=== PATIENT | female | born 1940 | race Caucasian/White ===

== ENCOUNTER 2018-11-03 09:13 | Emergency (ER) | payer OTHER ==
[~2018-11-03] VITALS: Ht 149.9 cm; Wt 54.4 kg
[2018-11-03 09:13] VITALS: BP 142/61
--- NOTE | 2018-11-03 09:13 | NUR ---
78 Y F BIBA FROM [facility] C/0 FALL. PER [facility], PT FELL AND HIT THE R SIDE OF HER HEAD AND BACK AT 0715 THIS MORNING. PT DID NOT LOSE CONSCIOUSNESS. PT REPORTS SHE FELT DIZZY BEFORE SHE FELL. GOOSEBUMP ON R SIDE OF HEAD, 9/10 PAIN. BACK PAIN 10/10. PT HAS A L SIDED FISTULA IN UPPER ARM. VSS. AA0X4. BLOOD SUGAR IS 131. BED IS DOWN, LOCKED, BED RAIL X 2. ERMD NOTIFIED OF PATIENT STATUS. PMH- HTN, DIALYSIS, GERD SEE MED LIST
--- NOTE | 2018-11-03 09:37 | NUR ---
DR MORRIS AT BEDSIDE
[2018-11-03] MEDS ORDERED: diphenhydrAMINE 50 MG/ML VIAL IM ONE (09:40)
[2018-11-03] MEDS ORDERED: DEXAMETHASONE 10 MG/ML VIAL IM ONE (09:40)
[2018-11-03] MEDS ORDERED: MORPHINE SULFATE 4 MG/ML SYR IM ONE (09:40)
--- NOTE | 2018-11-03 10:05 | NUR ---
IM MEDS GIVEN-NADR AT THIS TIME. VSS, PT STABLE.
--- NOTE | 2018-11-03 10:06 | NUR ---
PT SENT TO CT WITH TECH VIA BED AAOX4
--- NOTE | 2018-11-03 10:45 | NUR ---
PT RETURN FROM CT AT THIS TIME, A/OX3. PT ON STRETCHER IN SUPINE POSITION, EYES OPEN, RESPIRATIONS EVEN/UNLABORED, DENIES CP AT THIS TIME. BED IN LOW POSITION, SIDE RAILS UP, FULL MONITOR ON, WILL CONTINUE TO MONITOR CLOSELY.
--- NOTE | 2018-11-03 12:00 | NUR ---
PT FLAT ON STRETCHER, A/OX3, RESPIS E/U NO REQUESTS AT THIS TIME.
[2018-11-03 12:53] LABS: BASOPHILS % (AUTO) 0.2 % (0.0-2.0); EOSINOPHILS # (AUTO) 0.1 K/uL (0-0.4); HEMATOCRIT 37.9 % (36-48); HEMOGLOBIN 12.5 g/dL (12.0-16.0); LYMPHOCYTES # (AUTO) 0.8 K/uL (2.5-16.5); LYMPHOCYTES % (AUTO) 5.4 % (20.5-51.1); MEAN CORPUSCULAR HEMOGLOBIN 32 pg (27-31); MEAN CORPUSCULAR HGB CONC 33 g/dL (33-37); MEAN CORPUSCULAR VOLUME 97.1 fL (80-94); MONOCYTES # (AUTO) 0.8 K/uL (0.8-1.0); MONOCYTES % (AUTO) 5.6 % (1.7-9.3); NEUTROPHILS # (AUTO) 13.2 K/uL (1.8-7.7); NEUTROPHILS % (AUTO) 87.8 % (42.2-75.2); PLATELET COUNT (AUTO) 69 K/uL (140-450); RED CELL DISTRIBUTION WIDTH 20.4 % (11.6-13.7)
--- NOTE | 2018-11-03 13:00 | NUR ---
PT FLAT ON STRETCHER, A/OX3, RESPIS E/U NO REQUESTS AT THIS TIME.
[2018-11-03 13:08] LABS: PROTHROMBIN TIME 14.4 secs (10.8-13.4)
[2018-11-03 13:37] LABS: ANION GAP 10.2 (8-16); CARBON DIOXIDE 30.5 mmol/L (21-32); CHLORIDE 100 mmol/L (98-107); GLUCOSE 113 mg/dL (74-106); POTASSIUM 3.7 mmol/L (3.5-5.1); SODIUM SERUM 137 mmol/L (136-145); UREA NITROGEN, BLOOD 21 mg/dL (7-18)
[2018-11-03 13:38] LABS: CREATININE 4.2 mg/dL (0.6-1.3)
[2018-11-03 13:44] LABS: ALBUMIN 3.2 g/dL (3.4-5.0); AMYLASE 39 U/L (25-115); ASPARTATE AMINOTRANSFERASE 53 U/L (15-37); LIPASE 91 U/L (73-393); TOTAL BILIRUBIN 1.1 mg/dL (0.0-1.0)
--- NOTE | 2018-11-03 14:00 | NUR ---
PT FLAT ON STRETCHER, A/OX3, RESPIS E/U NO REQUESTS AT THIS TIME.
[2018-11-03 14:17] VITALS: BP 114/69
--- NOTE | 2018-11-03 14:17 | NUR ---
Patient to be transferred to [facility]. Is being transferred due to HIGHER LEVEL OF CARE. Receiving facility has accepting physician and available space. ER physician has signed transfer form. Patient or responsible democrat has agreed to transfer and signed form. Patient belongings inventoried and will be sent with patient. Copy of nursing notes, lab reports, EKG, Physicians Orders and X-rays to be sent with patient. Report called to JOSHUA REGALADO at receiving facility. [facility] ambulance service has been called for transfer. PT LEAVING NOW, PLACED ON BACKBOARD PER PHYSICIAN ORDERS.
--- NOTE | 2018-11-03 14:17 | NUR ---
GAVE REPORT TO ARROWHEAD
== END 2018-11-03 14:17 | disposition short-term general hospital (02) ==
LOC: MED 09:13
DX: S32.041A Stable burst fracture of fourth lumbar vertebra, initial encounter for closed fracture (principal); R51 Headache; K21.9 Gastro-esophageal reflux disease without esophagitis; I12.0 Hypertensive chronic kidney disease with stage 5 chronic kidney disease or end stage renal disease; N18.6 End stage renal disease; Z99.2 Dependence on renal dialysis; W18.39XA Other fall on same level, initial encounter; Y93.89 Activity, other specified; Y92.89 Other specified places as the place of occurrence of the external cause; Y99.8 Other external cause status
CPT/HCPCS: 36415; 70450; 71250; 72125; 74176; 80053; 82150; 83690; 84484; 85025; 85610; 85730; 86886; 86900; 86901; 93005; 96372; 99285; J1100; J1200; J2270

== ENCOUNTER 2019-01-31 13:49 | Inpatient (IN) | payer OTHER ==
[~2019-01-31] VITALS: Ht 152.4 cm; Wt 61.2 kg
--- NOTE | 2019-01-31 06:55 | NUR ---
PATIENT ARRIVED FROM ED VIA GURNEY. PATIENT IS AAOX4, MACEDONIAN SPEAKING. RESPIRATIONS ARE EVEN AND UNLABORED ON 3L NC. RIGHT FA 18 G INTACT AND SL. LEFT UA FISTULA NOTED. DENIES PAIN AT THIS TIME. SAFETY MEASURES IN PLACE, CALL LIGHT WITHIN REACH. Addendum: 01/31/19 at 1918 by Deysi Caceres RN TIME WAS 185
--- NOTE | 2019-01-31 13:49 | NUR ---
Patient BIBA BLS, transferred to bed 10. RN evaluating patient at bedside.
[2019-01-31 13:53] VITALS: BP 133/61
--- NOTE | 2019-01-31 13:55 | NUR ---
PT BIBA C/O GENERALIZED WEAKNESS AND LT LEG PAIN. PER [facility] GENERALIZED WEAKNESS STARTED THISMORNING. PAIN AT 8/10. MEDHX:HTN, ESRD, DIALYSIS (NEXT DIALYSIS TOMORROW) . DENIES N/V/D; SKIN IS PINK/WARM/DRY; Awake, alert. LUNGS CLEAR BL; HR EVEN AND REGULAR; PT DENIES ANY CP, SOB, OR COUGH AT THIS TIME; O2 SATS 90% ON RA, FAVE O2 NC 2L/MIN. PATIENT STATES PAIN OF 8/10 AT THIS TIME; rectal temp 102.9F.PT HAS BRUISE TO LEFT LOWER LEG. PATIENT POSITIONED FOR COMFORT; HOB ELEVATED; BEDRAILS UP X2; BED DOWN. ER MD MADE AWARE OF PT STATUS.
[2019-01-31] MEDS ORDERED: ACETAMINOPHEN EXTRA STRENGTH 500 MG TAB PO ONE (14:00)
[2019-01-31] MEDS ORDERED: IBUPROFEN 600 MG TAB PO ONE (14:00)
[2019-01-31] MEDS ORDERED: NACL 0.9% 1,000 ML IV ONE (14:29)
[2019-01-31] MEDS ORDERED: MORPHINE SULFATE 2 MG/ML SYR IVP ONE (14:30)
[2019-01-31 14:48] LABS: BASOPHILS % (AUTO) 0.2 % (0.0-2.0); EOSINOPHILS # (AUTO) 0.3 K/uL (0-0.4); HEMATOCRIT 36.8 % (36-48); HEMOGLOBIN 12.4 g/dL (12.0-16.0); LYMPHOCYTES # (AUTO) 1.2 K/uL (2.5-16.5); LYMPHOCYTES % (AUTO) 4.5 % (20.5-51.1); MEAN CORPUSCULAR HEMOGLOBIN 33 pg (27-31); MEAN CORPUSCULAR HGB CONC 34 g/dL (33-37); MEAN CORPUSCULAR VOLUME 97.5 fL (80-94); MONOCYTES # (AUTO) 2.6 K/uL (0.8-1.0); MONOCYTES % (AUTO) 9.8 % (1.7-9.3); NEUTROPHILS % (AUTO) 84.5 % (42.2-75.2); PLATELET COUNT (AUTO) 101 K/uL (140-450); RED BLOOD CELL COUNT(AUTO) 3.77 MIL/uL (4.20-5.40)
[2019-01-31 15:08] LABS: WHITE BLOOD COUNT (AUTO) 26.1 K/uL (4.8-10.8)
[2019-01-31 15:09] LABS: ALBUMIN 3.2 g/dL (3.4-5.0); AMYLASE 30 U/L (25-115); ANION GAP 11.6 (8-16); ASPARTATE AMINOTRANSFERASE 44 U/L (15-37); CARBON DIOXIDE 30.4 mmol/L (21-32); CHLORIDE 96 mmol/L (98-107); GLUCOSE 108 mg/dL (74-106); LIPASE 99 U/L (73-393); MAGNESIUM 1.6 mg/dL (1.8-2.4); SODIUM SERUM 135 mmol/L (136-145); TOTAL BILIRUBIN 1.7 mg/dL (0.0-1.0); UREA NITROGEN, BLOOD 24 mg/dL (7-18)
[2019-01-31 15:12] LABS: CREATININE 4.4 mg/dL (0.6-1.3)
[2019-01-31 15:14] LABS: ACETONE, SERUM NEGATIVE (NEGATIVE)
[2019-01-31 15:19] LABS: PROTHROMBIN TIME 13.8 secs (10.8-13.4)
[2019-01-31 15:43] LABS: URIC ACID 3.6 mg/dL (2.6-7.2)
--- NOTE | 2019-01-31 16:00 | NUR ---
PT RESTING IN BED, NO S/S OF RESPIRATORY DISTRESS NOTED. ON O2 NC 2L/MIN. AWAKE, ALERT.
[2019-01-31 16:22] LABS: APPEARANCE,URINE CLEAR (CLEAR); BILIRUBIN,URINE NEGATIVE (NEGATIVE); BLOOD, URINE NEGATIVE (NEGATIVE); COLOR,URINE YELLOW (YELLOW); LEUKOCYTE ESTERASE ,URINE NEGATIVE (NEGATIVE); NITRITE, URINE NEGATIVE (NEGATIVE); PH,URINE 8.5 (5.0-9.0); UGLUCOSE NEGATIVE (NEGATIVE)
--- NOTE | 2019-01-31 17:00 | NUR ---
pt was looking for her eyeglasses, we did not see any eyeglass when ems transferred pt to ER, we only saw one cellphone with pt. charge nurse made aware.
[2019-01-31] MEDS ORDERED: BISA-246 RC (17:06)
[2019-01-31] MEDS ORDERED: VITA1TAB44 PO ×2 (17:06)
[2019-01-31] MEDS ORDERED: ACET-2619 PO (17:06)
[2019-01-31] MEDS ORDERED: [UNRECOGNIZED DRUG - CODE] (17:06)
[2019-01-31] MEDS ORDERED: ERGO80009 PO (17:06)
[2019-01-31] MEDS ORDERED: GABA100C PO (17:06)
[2019-01-31] MEDS ORDERED: ZAR2.5 PO (17:06)
[2019-01-31] MEDS ORDERED: HYDR-5122 PO (17:06)
[2019-01-31] MEDS ORDERED: DOCU-299 PO (17:06)
[2019-01-31] MEDS ORDERED: FAMO-90 PO (17:06)
[2019-01-31] MEDS ORDERED: CARV6.25 PO (17:06)
[2019-01-31] MEDS ORDERED: PHO667 PO (17:06)
--- NOTE | 2019-01-31 18:03 | NUR ---
BEDSIDEM ONITOR SHOWS SR. ON O2 NC 2L/MIN, NO SOB.
--- NOTE | 2019-01-31 18:50 | NUR ---
LATE ENTRY: NOTIFIED DR. MORRIS REGARDING K LEVEL 3.0 AT 1730, PER DR. MORRIS, PT IS HD PT. HE WILL CHECK.
--- NOTE | 2019-01-31 18:54 | NUR ---
REPORT GIVEN TO DAWNA REGALADO 117 B. PT VITSLS STABLE AT THIS MOMENT. NO FEVER. PT AWAKE, ALERT. ALL PERSONAL BELONGINGS WITH PT.
--- NOTE | 2019-01-31 19:18 | NUR ---
ENDORSED TO OPTICAL DESIGNER FOR CONTINUITY OF CARE. PATIENT IS STABLE AT THIS TIME.
--- NOTE | 2019-01-31 19:19 | NUR ---
RECEIVED BEDSIDE REPORT FROM DAY SHIFT NURSE. NO SOB OR ANY RESP DISTRESS NOTED ON 3L NC. IV SITE RFA 18G INTACT, PATENT, AND ASYMPTOMATIC. RICKY FISTULA NOTED. DENIES PAIN. SAFETY MEASURE IN PLACE. FALL PRECAUTION IN PLACE. BED IN LOW POSITION, CALL LIGHT WITHIN REACH.
--- NOTE | 2019-01-31 20:00 | NUR ---
VS CHECKED. WITHIN PT'S BASELINE. WILL CONTINUE TO MONITOR.
--- NOTE | 2019-01-31 21:40 | NUR ---
PAGED DR. DENISE Bello TO REPORT ABNORMAL LAB RESULTS AND GET MEDS ORDER.
--- NOTE | 2019-01-31 21:48 | NUR ---
DR. WALKER CALL BACK BUT STATE CALL ME BACK LATER. NO TIME TO REPORT ABNORMAL LAB RESULT. WILL PAGE AGAIN IN 30 MINS.
--- NOTE | 2019-01-31 22:34 | NUR ---
PAGED DR. DENISE Frost AGAIN.
--- NOTE | 2019-01-31 22:40 | NUR ---
DR. WALKER CALL BACK AND REPORT LAB RESULT. ORDERED K+, MAG AND INSPECTOR MISSILE CONSULT FOR DIALYSIS.
--- NOTE | 2019-01-31 22:50 | NUR ---
PAGED DR. LASSITER TO GET DIALYSIS ORDER.
--- NOTE | 2019-01-31 23:00 | NUR ---
DATA PROCESSING SUPERVISOR DR. BECK CALLED. REPORT DRАлександр FOR PT'S SCHEDULED DIALYSIS TOMORROW. DR. BECK STATE HE WILL PUT DIALYSIS ORDER.
[2019-01-31] MEDS ORDERED: ACETAMINOPHEN 325 MG TAB PO PRN (23:20)
[2019-01-31] MEDS ORDERED: BISACODYL 10 MG SUPP RC PRN (23:20)
[2019-01-31] MEDS ORDERED: MAG SULF 2000 MG/WATER PREMIX 50 ML IV SCH (23:30)
[2019-01-31] MEDS ORDERED: ONDANSETRON 4 MG/2 ML VIAL IVP PRN (23:30)
[2019-01-31] MEDS ORDERED: POTASSIUM CHLORIDE 10 MEQ TABER PO SCH (23:30)
[2019-01-31] MEDS ORDERED: LORazepam 2 MG/ML VIAL IVP PRN (23:30)
--- NOTE | 2019-01-31 23:42 | NUR ---
CONFIRMED DR. ODEN PUT DIALYSIS ORDER. CALLED [facility] AND SCHEDULED DIALYSIS TOMORROW MORNING.
[2019-02-01] VITALS: BP 91/51
[2019-02-01] MEDS ORDERED: LEVOFLOXACIN 500 MG/D5W PREMIX 100 ML IV SCH
[2019-02-01] MEDS: metroNIDAZOLE 500 MG/NS PREMIX 100 ML IV SCH ×2 (02:23→08:57)
--- NOTE | 2019-02-01 02:23 | NUR ---
GIVEN FLAGYL ORDERED BUT SOON MAG MESSER DONE D/T MAG MESSER WAS STILL INFUSING ON RFA AND NOT ABLE TO START IV ON THE LEFT ARM BECAUSE OF AV FISTULA. PT TOLERATED WELL.
--- NOTE | 2019-02-01 04:07 | NUR ---
GIVEN LEVAQUIN DR ORDERED SOON FLAGYL IS DONE. PT TOLERATED WELL. WILL CONTINUE TO MONITOR.
--- NOTE | 2019-02-01 06:00 | NUR ---
PT AWAKE IN BED. RECEIVED CONSENT FOR DIALYSIS.
--- NOTE | 2019-02-01 07:25 | NUR ---
ENDORSED PT TO DAY SHIFT NURSE. PT IN STABLE CONDITION.
--- NOTE | 2019-02-01 07:26 | NUR ---
RECEIVED BEDSIDE REPORT FROM NURSING TECHN NURSE FOR CONTINUITY OF CARE. PATIENT AOX4, NIGERIEN SPEAKING, NO COMPLAINTS AT THIS TIME. NO SIGN OF DISTRESS OR SOB ON 3L O2 VIA NC. IV SITE RFA 18G INTACT, PATENT, AND ASYMPTOMATIC. L AV FISTULA NOTED FOR HEMODIALYSIS. UPDATED BOARD. SAFETY AND FALL MEASURES IN PLACE. BED IN LOW POSITION, LOCKED, CALL LIGHT WITHIN REACH, WILL CONTINUE TO MONITOR PATIENT. Addendum: 02/01/19 at 1521 by Aaron Calles RN LEFT UA, NOT AV FISTULA.
[2019-02-01 08:00] VITALS: BP 130/65
--- NOTE | 2019-02-01 08:15 | NUR ---
PATIENT VOMITED. ASKED PATIENT IF SHE WANTED ZOFRAN PRN, PATIENT REFUSED. WILL CONTINUE TO MONITOR PATIENT.
[2019-02-01] MEDS: DOCUSATE SODIUM 100 MG GELCAP PO SCH ×2 (08:56→20:30)
[2019-02-01] MEDS: HYDROcodone/APAP 5/325 MG 1 TAB TAB PO SCH ×3 (08:56→17:00)
[2019-02-01] MEDS: FAMOTIDINE 20 MG TAB PO SCH ×2 (08:57→20:30)
[2019-02-01] MEDS: GABAPENTIN 100 MG CAP PO SCH (08:57)
[2019-02-01] MEDS: CALCIUM ACETATE 667 MG TAB PO SCH ×3 (08:57→17:47)
[2019-02-01] MEDS: VIT-B COMP/VIT-C/FOLIC ACID 1 TAB PO SCH (08:57)
[2019-02-01] MEDS: VITAMIN D 400 IU TAB PO SCH (08:57)
[2019-02-01] MEDS: LACTOBACILLUS RHAMNOSUS GG 1 EACH CAP PO SCH (08:57)
[2019-02-01] MEDS: CARVEDILOL 6.25 MG TAB PO SCH ×2 (09:00→17:47)
[2019-02-01] MEDS: METOLAZONE 2.5 MG TAB PO SCH (09:00)
--- NOTE | 2019-02-01 09:04 | NUR ---
ORDERED MEDICATIONS GIVEN. BLOOD PRESSURE MEDICATIONS WITHHELD BECAUSE PATIENT WILL BE GETTING HEMODIALYSIS TODAY. FAMILY MEMBERS AT BEDSIDE. NO COMPLAINTS AT THIS TIME. SAFETY PRECAUTIONS IN PLACE, CALL LIGHT WITHIN REACH, WILL CONTINUE TO MONITOR PATIENT.
--- NOTE | 2019-02-01 09:30 | NUR ---
PATIENT C/O ABOUT HER GLASSES. NO BELONGINGS CAME WITH HER FROM ER. CALLED ER STAFF TO FOLLOW UP. THEY STATED NO SHOES OR GLASSES BELONGING TO PATIENT IN THEIR POSITION. CHECKED BELONGINGS LIST IN CHART, PER EMT, WHEN PATIENT ARRIVED, NO GLASSES PRESENT. INFORMED PATIENT THIS. WILL FOLLOW UP WITH FAMILY MEMBERS.
--- NOTE | 2019-02-01 12:40 | NUR ---
ORDERED MEDICATIONS GIVEN. PATIENT SITTING UP IN BED EATING LUNCH AND GETTING HEMODIALYSIS. PATIENT TOLERATED IT. NO COMPLAINTS AT THIS TIME. WILL CONTINUE TO MONITOR PATIENT.
--- NOTE | 2019-02-01 14:45 | NUR ---
PATIENT RESTING IN BED GETTING HEMODIALYSIS, NO COMPLAINTS AT THIS TIME. WILL CONTINUE TO MONITOR PATIENT.
--- NOTE | 2019-02-01 14:54 | NUR ---
PATIENT'S SON JORGE CALLED, UPDATED HIM ON PATIENT'S STATUS AND PLAN OF CARE. HE VERBALIZED UNDERSTANDING.
--- NOTE | 2019-02-01 15:10 | NUR ---
PATIENT DONE WITH HEMODIALYSIS. 2L REMOVED. BP 108/54. DIALYSIS SITE DRY AND INTACT. PATIENT REPOSITIONED FOR COMFORT AND TO OFFLOAD PRESSURE AREAS. PATIENT TOLERATED IT. WILL CONTINUE TO MONITOR PATIENT.
[2019-02-01] MEDS ORDERED: VANCOMYCIN PER PHARMACY MC PRN (15:50)
[2019-02-01 15:59] VITALS: BP 98/48
[2019-02-01] MEDS ORDERED: VANCOMYCIN 1GM/DEXT 5% PREMIX 200 ML IV SCH (17:00)
[2019-02-01 17:45] VITALS: BP 118/52
--- NOTE | 2019-02-01 17:50 | NUR ---
ORDERED MEDICATIONS GIVEN. NORCO WITHHELD PER PATIENT'S REQUEST D/T EARLIER LOW BP. PATIENT TOLERATED IT WELL. PATIENT NOW SITTING UP EATING DINNER. NO COMPLAINTS AT THIS TIME. WILL CONTINUE TO MONITOR PATIENT.
--- NOTE | 2019-02-01 19:15 | NUR ---
REPORT GIVEN TO COMMERCIAL LEASING MANAGER NURSE AT BEDSIDE FOR CONTINUITY OF CARE. PATIENT IN STABLE CONDITION.
--- NOTE | 2019-02-01 19:26 | NUR ---
RECEIVED BEDSIDE REPORT FROM DAY SHIFT NURSEAAMIR FOR CONTINUITY OF CARE. PATIENT AOX4, DANISH SPEAKING, NO S/S OF SOB OR ANY RESPIRATORY DISTRESS NOTED ON 3L O2 VIA NC. DENIED PAIN AT THIS TIME. IV SITE RFA 18G INTACT, PATENT, AND ASYMPTOMATIC. L AV FISTULA NOTED FOR HEMODIALYSIS. UPDATED BOARD. SAFETY AND FALL MEASURES IN PLACE. BED IN LOW POSITION, LOCKED, CALL LIGHT WITHIN REACH, WILL CONTINUE TO MONITOR PATIENT.
--- NOTE | 2019-02-01 20:30 | NUR ---
GIVEN COLACE AND PEPCID MD ORDERED. PT TOLERATED WELL. WILL CONTINUE TO MONITOR.
--- NOTE | 2019-02-01 22:06 | NUR ---
PT SLEEPING BED COMFORTABLY. NO DISTRESS NOTED. RESP EVEN AND UNLABORED. BED IN LOW POSITION, CALL LIGHT WITHIN REACH.
--- NOTE | 2019-02-01 23:27 | NUR ---
LAB CALL AND INFORM PT HAS GRAM POSITIVE COCCI IN PAIRS AND CHAINS GRAM NEGATIVE COCCOBACILLI.
--- NOTE | 2019-02-01 23:38 | NUR ---
PAGED DR. VOSS FOR LAB RESULT.
--- NOTE | 2019-02-01 23:40 | NUR ---
DR VOSS CALLED BACK AND REPORTED BLOOD CULTURE RESULT. NO ORDER CHANGED.
--- NOTE | 2019-02-01 23:55 | NUR ---
VS CHECKED. PT IN STABLE CONDITION. BED IN LOW POSITION. CALL LIGHT WITHIN REACH. WILL CONTINUE TO MONITOR.
[2019-02-02] VITALS: BP 94/52
--- NOTE | 2019-02-02 02:25 | NUR ---
PT SLEEPING COMFORTABLY IN BED. NO ACUTE DISTRESS NOTED. BED ALARM KEEP ACTIVATED. WILL CONTINUE TO MONITOR.
--- NOTE | 2019-02-02 04:32 | NUR ---
PT SLEEPING IN BED. NO S/S OF SOB OR RESPIRATORY DISTRESS NOTED. BED IN LOW POSITION. CALL LIGHT WITHIN REACH.
--- NOTE | 2019-02-02 05:30 | NUR ---
CHANGED PT, NO URINE AND BM NOTED.
--- NOTE | 2019-02-02 07:13 | NUR ---
ENDORSED PT TO DAY SHIFT NURSE EARL. PT IN STABLE CONDITION.
--- NOTE | 2019-02-02 07:14 | NUR ---
RECEIVED BEDSIDE REPORT FROM OFFSET PRESS OPERATOR RN. PATIENT IS IN STABLE CONDITION WITH SL TO RIGHT FOREARM 18G, NO SIGNS OF DISTRESS NOTED ON 3L O2 NC. SAFETY PRECAUTIONS IN PLACE, CALL LIGHT IN REACH.
[2019-02-02 08:00] VITALS: BP 109/51
[2019-02-02] MEDS: CARVEDILOL 6.25 MG TAB PO SCH ×2 (08:00→17:37)
--- NOTE | 2019-02-02 08:02 | NUR ---
PATIENT HAS BEEN SCREENED AND CATEGORIZED HIGH NUTRITION RISK. PATIENT WILL BE SEEN WITHIN 1-2 DAYS OF ADMISSION. 02/02/[address]
[2019-02-02 08:08] LABS: BASOPHILS % (AUTO) 0.1 % (0.0-2.0); EOSINOPHILS # (AUTO) 0.2 K/uL (0-0.4); EOSINOPHILS % (AUTO) 1.1 % (0.0-4.0); HEMATOCRIT 31.6 % (36-48); HEMOGLOBIN 10.5 g/dL (12.0-16.0); LYMPHOCYTES # (AUTO) 0.5 K/uL (2.5-16.5); LYMPHOCYTES % (AUTO) 2.7 % (20.5-51.1); MEAN CORPUSCULAR HEMOGLOBIN 33 pg (27-31); MEAN CORPUSCULAR HGB CONC 33 g/dL (33-37); MEAN CORPUSCULAR VOLUME 100.4 fL (80-94); MONOCYTES % (AUTO) 10.1 % (1.7-9.3); NEUTROPHILS # (AUTO) 16.9 K/uL (1.8-7.7); RED BLOOD CELL COUNT(AUTO) 3.15 MIL/uL (4.20-5.40); RED CELL DISTRIBUTION WIDTH 20.5 % (11.6-13.7); WHITE BLOOD COUNT (AUTO) 19.6 K/uL (4.8-10.8)
[2019-02-02 08:30] LABS: CARBON DIOXIDE 30.5 mmol/L (21-32); CHLORIDE 100 mmol/L (98-107); CREATININE 3.9 mg/dL (0.6-1.3); GLUCOSE 95 mg/dL (74-106); POTASSIUM 3.5 mmol/L (3.5-5.1); SODIUM SERUM 137 mmol/L (136-145); UREA NITROGEN, BLOOD 23 mg/dL (7-18)
[2019-02-02 08:38] LABS: MAGNESIUM 1.8 mg/dL (1.8-2.4); PHOSPHORUS 1.2 mg/dL (2.5-4.9)
[2019-02-02] MEDS: VITAMIN D 400 IU TAB PO SCH (08:52)
[2019-02-02] MEDS: CALCIUM ACETATE 667 MG TAB PO SCH ×3 (08:52→17:00)
--- NOTE | 2019-02-02 08:52 | NUR ---
ADMINISTERED SCHEDULED MEDICATIONS. PATIENT TOLERATED WELL. SAFETY PRECAUTIONS IN PLACE, SALINE LOCK FLUSHING WELL, CALL LIGHT IN REACH.
[2019-02-02] MEDS: DOCUSATE SODIUM 100 MG GELCAP PO SCH ×2 (08:53→21:21)
[2019-02-02] MEDS: FAMOTIDINE 20 MG TAB PO SCH ×2 (08:53→21:21)
[2019-02-02] MEDS: VIT-B COMP/VIT-C/FOLIC ACID 1 TAB PO SCH (08:53)
[2019-02-02] MEDS: LACTOBACILLUS RHAMNOSUS GG 1 EACH CAP PO SCH (08:53)
[2019-02-02] MEDS: HYDROcodone/APAP 5/325 MG 1 TAB TAB PO SCH ×3 (08:53→17:00)
[2019-02-02] MEDS: METOLAZONE 2.5 MG TAB PO SCH (08:54)
[2019-02-02] MEDS: GABAPENTIN 100 MG CAP PO SCH (08:56)
[2019-02-02 09:54] LABS: PLATELET COUNT (AUTO) 89 K/uL (140-450)
--- NOTE | 2019-02-02 10:30 | NUR ---
PATIENT SLEEPING IN BED, NO SIGNS OF DISTRESS ON 3L O2 NC. SAFETY PRECAUTIONS IN PLACE. WILL CONTINUE TO MONITOR.
--- NOTE | 2019-02-02 12:30 | NUR ---
PATIENT IS ATTEMPTING TO GET OUT OF BED, ASSISTED PATIENT BACK TO BED AND PATIENT IS SHOWING SIGNS OF CONFUSION. USING THE CYRACOM PATIENT STATED" I AM GOING TO GET UP AND GO TO THE KITCHEN TO MAKE FOOD WITH MY MOTHER AND GRANDMOTHER. IF I DON'T MAKE FOOD THE MAN WILL BE MAD WHEN HE COMES." EXPLAINED TO PATIENT THAT THERE WAS NO KITCHEN IN THE ROOM, REORIENTED HER TO THE HOSPITAL SETTING, SHE WAS ARGUMENTATIVE AND DID NOT BELIEVE ME. PATIENT DID NOT HAVE LUNCH DUE TO A PROCEDURE AND STATED SHE WAS HUNGRY AND WANTS TO COOK. I EXPLAINED THAT SHE COULD EAT AFTER THE PROCEDURE AT 4PM. SHE GOT MADE AND CONTINUED TO SHOW SIGNS OF CONFUSION. EVENTUALLY I WAS ABLE TO REASSURE HER AND CALM HER. SHE IS NOT RESTING IN BED WITH NO SIGNS OF DISTRESS ON 3L O2 NC.
[2019-02-02] MEDS ORDERED: POTASSIUM PHOSPHATE 15 MM in NACL 0.9% 250 ML IV SCH (13:00)
--- NOTE | 2019-02-02 14:07 | NUR ---
02/02/19 RD INITIAL ASSESSMENT COMPLETED PLEASE REFER TO NUTRITION ASSESSMENT UNDER CARE ACTIVITY FOR ESTIMATED NUTRITIONAL NEEDS. RD RECOMMENDATIONS: 1. RECOMMEND ADVANCE DIET TOLERATED TO RENAL AND ADDING NEPRO BID DUE TO PO INTAKE 33%. 2 .RECOMMEND ADJUSTING BM REGIMEN DUE TO PT WITH C/O CONSTIPATION. 3. RD WILL F/U 2-3 DAYS; HIGH RISK. PHILIPP MOSS, RD
--- NOTE | 2019-02-02 14:30 | NUR ---
PATIENT SON CAME TO VISIT AND PROVIDED HER PATIENT GLASSES. PATIENT SEEMS MORE ORIENTED TO SURROUNDINGS WITH HER GLASSES. WILL CONTINUE TO MONITOR MENTATION.
--- NOTE | 2019-02-02 15:30 | NUR ---
PATIENT RECEIVING ULTRASOUND. NO SIGNS OF DISTRESS NOTED ON 3L O2 NC.
[2019-02-02 16:00] VITALS: BP 132/63
--- NOTE | 2019-02-02 19:15 | NUR ---
GAVE BEDSIDE REPORT TO UNIVERSITY REGISTRAR RNJULIO. PATIENT ATTEMPTING TO AMBULATE FROM BED. ASSISTED PATIENT BACK TO BED AND PROVIDED BED SAWANT. NO SIGNS OF DISTRESS ON 3L NC. SAFETY PRECAUTIONS IN PLACE.
--- NOTE | 2019-02-02 19:16 | NUR ---
REPORT RECEIVED FROM AM NURSE AT BEDSIDE. PT IN STABLE CONDITION. AAOX1. PT IS SEVERE CONFUSED. INTRODUCED SELF TO PT. BOARD UPDATED. NO COMPLAINTS OF PAIN. NO SOB ON 3L O2 VIA NC. AFEBRILE. PT IS AMBULATORY WITH ASSIST. L AV FISTULA. IV SITE R FA 18G RUNNING SL PATENT AND INTACT. SKIN WARM, DRY, AND INTACT WITH NO OPEN WOUNDS. BED LOCKED IN LOW POSITION. CALL [place] WITHIN REACH. SAFETY PRECAUTION IN PLACE. ALL NEEDS MET AT THIS TIME.
[2019-02-02] MEDS: PIPER/TAZO 2.25GM/D5W PREMIX 50 ML IV SCH (21:21)
--- NOTE | 2019-02-02 21:21 | NUR ---
COLACE AND PEPCID GIVEN PO. ZOSYN HUNG AND RUNNING. PT TOLERATED WELL.
--- NOTE | 2019-02-02 21:41 | NUR ---
ATIVAN GIVEN FOR ANXIETY AND CONFUSION. PT TOLERATED WELL.
--- NOTE | 2019-02-02 22:55 | NUR ---
PT SLEEPING COMFORTABLY IN BED. NO S/S OF DISTRESS NOTED. WILL CONTINUE TO MONITOR.
[2019-02-03] VITALS: BP 123/58
--- NOTE | 2019-02-03 01:10 | NUR ---
PT SLEEPING COMFORTABLY IN BED. NO S/S OF DISTRESS NOTED. RESPIRATIONS EVEN, UNLABORED, AND WNL. WILL CONTINUE TO MONITOR.
--- NOTE | 2019-02-03 02:40 | NUR ---
PT SLEEPING COMFORTABLY IN BED. NO S/S OF DISTRESS NOTED. WILL CONTINUE TO MONITOR.
[2019-02-03] MEDS: PIPER/TAZO 2.25GM/D5W PREMIX 50 ML IV SCH ×3 (04:22→20:34)
--- NOTE | 2019-02-03 04:22 | NUR ---
BUNNY HUNG AND RUNNING. PT TOLERATING WELL.
--- NOTE | 2019-02-03 06:10 | NUR ---
PT AWAKE AND ALERT WATCHING TV. NO S/S OF DISTRESS NOTED. WILL CONTINUE TO MONITOR.
--- NOTE | 2019-02-03 06:50 | NUR ---
PT SEVERELY CONFUSED. PT PULLED IV OUT. CANNULA INTACT. WILL ATTEMPT TO INSERT IV.
--- NOTE | 2019-02-03 06:55 | NUR ---
ATTEMPTED 1X IV INSERTION. UNABLE TO GET IV ACCESS. WILL ENDORSE TO MORNING SHIFT.
--- NOTE | 2019-02-03 07:05 | NUR ---
REPORT GIVEN TO AM NURSE AT BEDSIDE. PT IN STABLE CONDITION.
--- NOTE | 2019-02-03 07:06 | NUR ---
RECEIVED BED SIDE REPORT FROM REPAIR MECHANIC RN. PT PULLED OUT IV AROUND 0700. PT CONFUSED. A/OX1. KNOWS NAME, THINKS SHE IS AT [facility], DOES NOT KNOW YEAR OR WHY SHE IS HERE. APPEARS IN NO PAIN. ON 3L NC IN NO RESPIRATORY DISTRESS. ON 2G SODIUM DIET. SKIN INTACT BUT HAS LLE DISCOLORATION WHICH APPEARS TO LOOK LIKE A DIFFUSED BRUISE WITH A SMALL TENDER MASS ON IT. WILL CONTINUE TO MONITOR
[2019-02-03 07:28] LABS: BASOPHILS % (AUTO) 0.2 % (0.0-2.0); EOSINOPHILS # (AUTO) 0.4 K/uL (0-0.4); EOSINOPHILS % (AUTO) 2.4 % (0.0-4.0); HEMATOCRIT 35.1 % (36-48); HEMOGLOBIN 11.6 g/dL (12.0-16.0); LYMPHOCYTES # (AUTO) 0.8 K/uL (2.5-16.5); LYMPHOCYTES % (AUTO) 4.8 % (20.5-51.1); MEAN CORPUSCULAR HEMOGLOBIN 33 pg (27-31); MEAN CORPUSCULAR HGB CONC 33 g/dL (33-37); MEAN CORPUSCULAR VOLUME 99.6 fL (80-94); MONOCYTES # (AUTO) 1.2 K/uL (0.8-1.0); MONOCYTES % (AUTO) 7.6 % (1.7-9.3); NEUTROPHILS # (AUTO) 13.8 K/uL (1.8-7.7); RED BLOOD CELL COUNT(AUTO) 3.52 MIL/uL (4.20-5.40); RED CELL DISTRIBUTION WIDTH 20.7 % (11.6-13.7)
[2019-02-03 07:34] LABS: ALBUMIN 2.8 g/dL (3.4-5.0); ANION GAP 12.9 (8-16); ASPARTATE AMINOTRANSFERASE 21 U/L (15-37); CARBON DIOXIDE 28.2 mmol/L (21-32); CHLORIDE 100 mmol/L (98-107); GLUCOSE 86 mg/dL (74-106); PHOSPHORUS 2.4 mg/dL (2.5-4.9); POTASSIUM 4.1 mmol/L (3.5-5.1); SODIUM SERUM 137 mmol/L (136-145); TOTAL BILIRUBIN 1.1 mg/dL (0.0-1.0); UREA NITROGEN, BLOOD 36 mg/dL (7-18)
[2019-02-03 08:00] VITALS: BP 121/64
[2019-02-03] MEDS: GABAPENTIN 100 MG CAP PO SCH (08:11)
[2019-02-03] MEDS: METOLAZONE 2.5 MG TAB PO SCH (08:11)
[2019-02-03] MEDS: CALCIUM ACETATE 667 MG TAB PO SCH ×3 (08:12→16:17)
[2019-02-03] MEDS: LACTOBACILLUS RHAMNOSUS GG 1 EACH CAP PO SCH (08:12)
[2019-02-03] MEDS: FAMOTIDINE 20 MG TAB PO SCH ×2 (08:12→20:34)
[2019-02-03] MEDS: DOCUSATE SODIUM 100 MG GELCAP PO SCH ×2 (08:12→20:34)
[2019-02-03] MEDS: HYDROcodone/APAP 5/325 MG 1 TAB TAB PO SCH ×3 (08:12→16:18)
[2019-02-03] MEDS: CARVEDILOL 6.25 MG TAB PO SCH ×2 (08:13→16:18)
[2019-02-03] MEDS: VIT-B COMP/VIT-C/FOLIC ACID 1 TAB PO SCH (08:13)
[2019-02-03] MEDS: VITAMIN D 400 IU TAB PO SCH (08:13)
[2019-02-03 08:25] LABS: WHITE BLOOD COUNT (AUTO) 16.2 K/uL (4.8-10.8)
[2019-02-03 08:26] LABS: PLATELET COUNT (AUTO) 96 K/uL (140-450)
--- NOTE | 2019-02-03 11:20 | NUR ---
ATTEMPTED TO START IV 3X. CALLED NANCY LÓPEZ RN TO START IT. NANCY INSETED A RIGHT HAND 20G. WILL PLACE SAM BANDAGE OVER IT TO PREVENT PT FROM TAKING IT OUT AGAIN AND WILL LET THE MD KNOW. PT APPEARS IN NO PAIN AND IN NO RESPIRATORY DISTRESS. ABDOMEN STILL FEELS DISTENDED AND HARD. PARACENTESIS CONSENT FORMED SIGNED AND IN CHART. WILL CONTINUE TO MONITOR
--- NOTE | 2019-02-03 12:22 | NUR ---
JOVANA HOLLIS. PT TOLERATING WELL. COVERED IV WITH SAM BANDAGE, WILL CONTINUE TO MONITOR
--- NOTE | 2019-02-03 12:58 | NUR ---
PT HAS TAKEN OFF SAM BANDAGE AND PT HAS TRIED TO GET OUT OF BED BUT BED ALARM WENT OFF. REORIENTED PT AND EDUCATED PT ON THE NEED TO STAY AND BED AND USE CALL LIGHT FOR ANY NEED. PT STILL HAVING OFF TOPIC CONVERSATIONS WITH "SON" WHO SHE STATES IS I NTHE ROOM WITH HER BUT NO ONE IS CURRENTLY IN THE ROOM. PUT ON SAM BANDAGE AGAIN AND PUT A SMALL TOWEL OVER SAM BANDAGE AND EDUCATED PT ON THE IMPORTANCE OF HAVING THE IV ACCESS IN PLACE. WILL CONTINUE TO MONITOR
--- NOTE | 2019-02-03 12:59 | NUR ---
PT HAS AUDIBLE WHEEZING ON 3L NC BUT HAS SPO2 97%. CALLED BUT HE DID NOT ANSWER. NOTIFIED NANCY LÓPEZ RN. WILL CONTINUE TO MONITOR
--- NOTE | 2019-02-03 13:43 | NUR ---
SPOKE WITH AND SAID TO PUT IN AN ORDER FOR RT
--- NOTE | 2019-02-03 14:36 | NUR ---
SW followed up to conduct an assessment with patient through japanese interpreter via blue phone, as patient requested SW to return due to her eating her meal earlier. Patient refused assessment and asked SW to leave the room. SW/CM will follow up as needed.
--- NOTE | 2019-02-03 15:20 | NUR ---
PARACENTSIS ABOUT TO BE DONE ON PT. WILL CONTINUE TO MONITOR
[2019-02-03 16:00] VITALS: BP 149/56
--- NOTE | 2019-02-03 19:28 | NUR ---
GAVE BED SIDE REPORT. PT IN STABLE CONDITION
--- NOTE | 2019-02-03 19:30 | NUR ---
RECEIVED REPORT FROM ASHLEE REGALADO DAYSHIFT NURSE AT BEDSIDE FOR CONTINUITY OF CARE, PT IN STABLE CONDITION.
[2019-02-03] MEDS: ALBUTEROL SULFATE/IPRATROPIU 3 ML SOL IH PRN (19:51)
[2019-02-03 20:00] VITALS: BP 111/65
--- NOTE | 2019-02-03 20:00 | NUR ---
PT IN BED ALL FALLS PRECAUTIONS IN PLACE. PT AOX1 WITH IV SITE ON R HAND 22G INTACT AND FLUSHED PATENT. PT REPOSITIONED IN BED V/S FOLLOWS T 97.8 P 78 R 18 B/P 105/60 02 94%. PT HAS NO C/O VOICED. Addendum: 02/04/19 at 0027 by Princess Post RN WRONG PT V/S V/S FOLLOWS T 97.9 P 78 R 18 B/P 111/65 02 [id number] WITH 23 LITERS.
--- NOTE | 2019-02-03 20:30 | NUR ---
RT AT BEDSIDE EVALUATING PT DUE TO USE OF INTERCOSTAL MUSCLES WHILE BREATHING. RT GAVE HER A NEB TREATMENT AND PUT PT ON 2 LITERS VIA N/C. RT SUGGESTED A STEROID DUE TO USE OF INTERCOSTAL MUSCLES WHILE BREATHING. DR. DENISE Frost MD PAGED. AWAITING RETURN CALL.
[2019-02-03] MEDS ORDERED: methylPREDNISolone SS 40 MG/ML VIAL IVP SCH (21:00)
--- NOTE | 2019-02-03 21:00 | NUR ---
DR. WALKER CALLED BACK , NEW ORDERS NOTED FOR SOLUMEDROL 20MG IVP X1. MEDICATION GIVEN WELL OTHER ORDERED MEDICATION OF ZOSYN, COLACE, PEPCID. ALL REQUESTED NEEDS ATTENDED BY STAFF AND ALL FALLS PRECAUTIONS IN PLACE.
--- NOTE | 2019-02-03 23:30 | NUR ---
PT IN BED WITH ALL FALLS PRECAUTIONS OBSERVED. SON JORGE CALLED AND WAS UPDATED ON HER CONDITION. V/S FOLLOWS T 97.8 P 78 R 18 B/P 105/60 02 94% WITH 2 LITERS VIA N/C. PT BREATHING EASIER, NO S/S OF PAIN OR DISTRESS NOTED, ALL REQUESTED NEEDS ATTENDED.
--- NOTE | 2019-02-04 02:00 | NUR ---
PT IN BED SLEEPING NO S/S OF PAIN OR DISTRESS NOTED. ALL FALLS PRECAUTIONS IN PLACE.
[2019-02-04] MEDS: PIPER/TAZO 2.25GM/D5W PREMIX 50 ML IV SCH ×2 (05:42→12:32)
--- NOTE | 2019-02-04 06:05 | NUR ---
PT IN BED ASLEEP, ALL FALLS PRECAUTIONS OBSERVED ZYOSN HUNG AND RUNNING ORDERED.
[2019-02-04 06:12] LABS: HEPATITIS A ANTIBODY IGM Negative (Negative); HEPATITIS B CORE AB TOTAL Negative (Negative); HEPATITIS B SURFACE ANTIBODY Reactive (.); HEPATITIS B SURFACE ANTIGEN Negative (Negative)
--- NOTE | 2019-02-04 07:25 | NUR ---
REPORT GIVEN TO RAMÓN RN AT BEDSIDE FOR CONTINUITY OF CARE, PT IN STABLE CONDITION.
--- NOTE | 2019-02-04 07:26 | NUR ---
RECEIVED BEDSIDE REPORT FROM RING SEWER NURSE. PATIENT IS AWAKE, ALERT AND ORIENTEDX4. NO SIGNS OF DISTRESS ON 3L NC. PATIENT IS BEDBOUND. FALL RISK PROTOCOL IN PLACE. L LEG HAS CELLULITIS. SKIN IS INTACT. NO B/P OR VENIPUNCTURE ON L ARM, AV SHUNT. SIGNS POSTED. R FA 20G SL. CLEAN, DRY AND INTACT. BED IN LOW POSITION. CALL LIGHT WITHIN REACH. PATIENT ABLE TO MAKE NEEDS KNOWN. WILL CONTINUE TO MONITOR
[2019-02-04 07:35] LABS: ANION GAP 15.8 (8-16); CARBON DIOXIDE 24.8 mmol/L (21-32); CHLORIDE 99 mmol/L (98-107); GLUCOSE 137 mg/dL (74-106); POTASSIUM 4.6 mmol/L (3.5-5.1); SODIUM SERUM 135 mmol/L (136-145); UREA NITROGEN, BLOOD 48 mg/dL (7-18)
[2019-02-04 07:42] LABS: CREATININE 6.1 mg/dL (0.6-1.3)
[2019-02-04 08:00] VITALS: BP 105/61
[2019-02-04] MEDS: CARVEDILOL 6.25 MG TAB PO SCH ×2 (08:00→17:00)
[2019-02-04] MEDS: CALCIUM ACETATE 667 MG TAB PO SCH ×3 (08:00→17:40)
--- NOTE | 2019-02-04 08:00 | NUR ---
HD NURSE AT BEDSIDE. WILL CONTINUE TO MONITOR THE PATIENT.
[2019-02-04] MEDS: FAMOTIDINE 20 MG TAB PO SCH ×2 (09:00→21:08)
[2019-02-04] MEDS: GABAPENTIN 100 MG CAP PO SCH (09:00)
[2019-02-04] MEDS: METOLAZONE 2.5 MG TAB PO SCH (09:00)
[2019-02-04] MEDS: LACTOBACILLUS RHAMNOSUS GG 1 EACH CAP PO SCH (09:00)
[2019-02-04] MEDS: DOCUSATE SODIUM 100 MG GELCAP PO SCH ×2 (09:00→21:08)
[2019-02-04] MEDS: VITAMIN D 400 IU TAB PO SCH (09:00)
[2019-02-04] MEDS: HYDROcodone/APAP 5/325 MG 1 TAB TAB PO SCH ×3 (09:00→17:00)
[2019-02-04] MEDS: VIT-B COMP/VIT-C/FOLIC ACID 1 TAB PO SCH (09:00)
--- NOTE | 2019-02-04 09:45 | NUR ---
CALLED ANTIONETTE AT [facility] [phone] FOR PATIENT TRANSFER, PER ANTIONETTE THIS PATIENT WILL GO TO BED 5C.
--- NOTE | 2019-02-04 10:00 | NUR ---
PATIENT STILL GETTING HD AT THIS TIME. PATIENT IN STABLE CONDITION. HD NURSE AT BEDSIDE. UNABLE TO GIVE CARROLL MEDS DUE TO HD AT THIS TIME
[2019-02-04 10:48] LABS: BASOPHILS # (AUTO) 0.1 K/uL (0.00-0.22); BASOPHILS % (AUTO) 0.5 % (0.0-2.0); EOSINOPHILS # (AUTO) 0.3 K/uL (0-0.4); EOSINOPHILS % (AUTO) 1.5 % (0.0-4.0); HEMATOCRIT 32.5 % (36-48); HEMOGLOBIN 10.8 g/dL (12.0-16.0); LYMPHOCYTES # (AUTO) 0.6 K/uL (2.5-16.5); LYMPHOCYTES % (AUTO) 3.7 % (20.5-51.1); MEAN CORPUSCULAR HEMOGLOBIN 33 pg (27-31); MEAN CORPUSCULAR HGB CONC 33 g/dL (33-37); MEAN CORPUSCULAR VOLUME 98.7 fL (80-94); MONOCYTES # (AUTO) 0.8 K/uL (0.8-1.0); MONOCYTES % (AUTO) 4.4 % (1.7-9.3); NEUTROPHILS # (AUTO) 15.8 K/uL (1.8-7.7); NEUTROPHILS % (AUTO) 89.9 % (42.2-75.2); PLATELET COUNT (AUTO) 94 K/uL (140-450); RED BLOOD CELL COUNT(AUTO) 3.29 MIL/uL (4.20-5.40); RED CELL DISTRIBUTION WIDTH 20.3 % (11.6-13.7); WHITE BLOOD COUNT (AUTO) 17.6 K/uL (4.8-10.8)
--- NOTE | 2019-02-04 11:23 | NUR ---
HD NURSE STILL AT BEDSIDE. PATIENT IN NO DISTRESS. WILL CONTINUE TO MONITOR THE PATIENT
--- NOTE | 2019-02-04 12:33 | NUR ---
ADMINISTERED CARROLL MEDS. PATIENT TOLERATED WELL. EDUCATED ON SIDE EFFECTS. VITALS WNL B/P 103/46 HR 86 TEMP 99 O2SAT 98% AND RR 16. PATIENT REFUSED CARROLL PAIN MED NORCO, SHE SAID SHE IS NOT IN PAIN. WILL CONTINUE TO MONITOR THE PATIENT. HD IS DONE 2L OUT
--- NOTE | 2019-02-04 13:34 | NUR ---
PATIENT SITTING IN BED WATCHING TV. NO SIGNS OF DISTRESS. NO COMPLAINTS AT THIS TIME. WILL CONTINUE TO MONITOR THE PATIENT
[2019-02-04] MEDS ORDERED: VANCOMYCIN 1GM/DEXT 5% PREMIX 200 ML IV SCH (14:00)
--- NOTE | 2019-02-04 14:31 | NUR ---
ADMINISTERED MEDS. PATIENT TOLERATED WELL. EDUCATED ON SIDE EFFECTS. PATIENT WANTS TO SLEEP. PLACED HOB DOWN, LIGHTS OFF. PATIENT TO REST AT THIS TIME. WILL CONTINUE TO MONITOR
[2019-02-04 16:00] VITALS: BP 95/45
--- NOTE | 2019-02-04 16:49 | NUR ---
PATIENT IS SLEEPING. NO SIGNS OF DISTRESS. BED IN LOW POSITION. CALL LIGHT WITHIN REACH. WILL CONTINUE TO MONITOR THE PATIENT
--- NOTE | 2019-02-04 17:48 | NUR ---
ADMINISTERED CARROLL MED. EDUCATED ON SIDE EFFECTS. PATIENT TOLERATED WELL. REFUSED NORCO AND HELD COREG D/T LOW B/P. WILL CONTINUE TO MONITOR
[2019-02-04 18:26] LABS: ALBUMIN,BODY FLUID 0.7 g/dL
--- NOTE | 2019-02-04 19:11 | NUR ---
GAVE BEDSIDE REPORT TO SUPERINTENDENT CONCRETE MIXING PLANT NURSE. PATIENT ENDORSED IN STABLE CONDITION
--- NOTE | 2019-02-04 19:12 | NUR ---
RECD. RESTING IN BED, AWAKE, A/OX2-3. RESPIRATION EVEN AND UNLABORED. IV SALINE LOCK AT THE RIGHT HAND G22, PATENT AND INTACT. ON AT 2 LITERS N/C, 02 SAT - 95%. AV SHUNT AT THE LEFT ARM WITH BRUIT AND THRILL. LEFT LEG WITH CELLULITIS, BLACK COLOR, SOFT AND TENDER TO TOUCH. SAFETY MEASURES ENFORCED, BED ON ALARM. CALL LIGHT WITHIN REACH. PLAN OF CARE FOR THE SHIFT DISCUSSED. NEEDS REINFORCEMENT. DENIES PAIN 0/10.
--- NOTE | 2019-02-04 20:00 | NUR ---
Patient's Plan of Care was discussed and reviewed with FALL INTERN: SHANON SAINZ LVN
--- NOTE | 2019-02-04 21:00 | NUR ---
DR. VOSS CAME AND CHECKED PATIENT. DISCONTINUE ZOSYN. CHECKED CELLULITIS WANTS I & D TO BE DONE.
[2019-02-04] MEDS: HYDROcodone/APAP 5/325 MG 1 TAB TAB PO PRN (21:07)
--- NOTE | 2019-02-04 22:00 | NUR ---
INFORMED DORINA WHALEN THAT RESULT OF BLOOD CULTURE FOR PATIENT IS STREPTOCOCCUS BOVIS WHICH CAN BE RELATED TO CANCER, DR. VOSS IS SUGGESTING COLONOSCOPY TO BE DONE BY DR. AGUERO AND SURGICAL CONSULT FOR I & D OF LEFT LEG CELLULITIS.
--- NOTE | 2019-02-04 22:25 | NUR ---
INFORMED DR. HEARN REGARDING DR. VOSS'S SUGGESTION FOR COLONOSCOPY, WILL CALL INSURANCE AND SEE PATIENT TOMORROW.
--- NOTE | 2019-02-04 22:30 | NUR ---
DR. DEL ROSARIO INFORMED OF CONSULT. WILL SEE PATIENT TOMORROW.
[2019-02-04] MEDS ORDERED: cefTRIAXone 1,000 MG VIAL ONE (22:58)
--- NOTE | 2019-02-04 23:02 | NUR ---
KEVEN WHALEY AND RUNNING. PT TOLERATING WELL.
[2019-02-05] VITALS: BP 102/45
--- NOTE | 2019-02-05 | NUR ---
STILL AWAKE, WANTS TO HAVE A BATH. INFORMED WILL BE GIVEN IN THE MORNING AGREED.
--- NOTE | 2019-02-05 02:00 | NUR ---
SLEEPING COMFORTABLY IN BED.
--- NOTE | 2019-02-05 04:00 | NUR ---
STILL SLEEPING COMFORTABLY IN BED. NO SOB NOTED.
--- NOTE | 2019-02-05 07:25 | NUR ---
CONDITION REMAIN STABLE. ENDORSED TO AM NURSE FOR CONTINUITY OF CARE.
--- NOTE | 2019-02-05 07:26 | NUR ---
RECEIVED BEDSIDE REPORT FROM PULMONOLOGY PHYSICIAN NURSE. PATIENT IS AWAKE, ALERT AND ORIENTEDX4. NO SIGNS OF DISTRESS ON 2L NC. SKIN IS INTACT. RICKY AV SHUNT, SIGNS POSTED ON VENIPUNCTURE OR IV ON L ARM. FALL RISK PROTOCOL IN PLACE. PATIENT HAS WEAKNESS. BEDSIDE COMMODE PRESENT. IV ON R HAND 20G SL. CLEAN, DRY AND INTACT. PATIENT IS CONTINENT. ABLE TO MAKE NEEDS KNOWN. WILL CONTINUE TO MONITOR. BED IN LOW POSITION. CALL LIGHT WITHIN REACH
[2019-02-05 07:39] LABS: HEMOGLOBIN 10.9 g/dL (12.0-16.0)
[2019-02-05 07:56] LABS: HEMATOCRIT 32.9 % (36-48); MEAN CORPUSCULAR HEMOGLOBIN 33 pg (27-31); MEAN CORPUSCULAR HGB CONC 33 g/dL (33-37); MEAN CORPUSCULAR VOLUME 99.1 fL (80-94); PLATELET COUNT (AUTO) 116 K/uL (140-450); RED BLOOD CELL COUNT(AUTO) 3.32 MIL/uL (4.20-5.40); RED CELL DISTRIBUTION WIDTH 20.7 % (11.6-13.7); WHITE BLOOD COUNT (AUTO) 18.8 K/uL (4.8-10.8)
[2019-02-05 08:00] VITALS: BP 120/53
[2019-02-05] MEDS: VITAMIN D 400 IU TAB PO SCH (08:42)
[2019-02-05] MEDS: CALCIUM ACETATE 667 MG TAB PO SCH ×3 (08:42→17:00)
[2019-02-05] MEDS: GABAPENTIN 100 MG CAP PO SCH (08:42)
[2019-02-05] MEDS: LACTOBACILLUS RHAMNOSUS GG 1 EACH CAP PO SCH (08:42)
[2019-02-05] MEDS: METOLAZONE 2.5 MG TAB PO SCH (08:43)
[2019-02-05] MEDS: VIT-B COMP/VIT-C/FOLIC ACID 1 TAB PO SCH (08:43)
[2019-02-05] MEDS: DOCUSATE SODIUM 100 MG GELCAP PO SCH ×2 (08:43→20:38)
[2019-02-05] MEDS: FAMOTIDINE 20 MG TAB PO SCH (08:43)
[2019-02-05] MEDS: CARVEDILOL 6.25 MG TAB PO SCH ×2 (08:43→17:00)
[2019-02-05] MEDS: HYDROcodone/APAP 5/325 MG 1 TAB TAB PO SCH ×3 (08:43→17:00)
--- NOTE | 2019-02-05 08:48 | NUR ---
ADMINISTERED MEDS. EDUCATED PATIENT ON SIDE EFFECTS. PATIENT TOLERATED WELL. DR HILLIARD CALLED TO ASK IF PATIENT IS AGREEABLE TO COLONOSCOPY. PATIENT AGREED. DR HILLIARD SAID HE WILL CALL ME BACK. WILL CONTINUE TO MONITOR
[2019-02-05 08:50] LABS: MAGNESIUM 1.9 mg/dL (1.8-2.4); PHOSPHORUS 1.9 mg/dL (2.5-4.9)
[2019-02-05 09:08] LABS: CARBON DIOXIDE 26.4 mmol/L (21-32); CHLORIDE 101 mmol/L (98-107); CREATININE 4.5 mg/dL (0.6-1.3); GLUCOSE 96 mg/dL (74-106); POTASSIUM 3.4 mmol/L (3.5-5.1); SODIUM SERUM 139 mmol/L (136-145); UREA NITROGEN, BLOOD 32 mg/dL (7-18)
[2019-02-05 09:09] LABS: EOSINOPHILS % (MANUAL) 4 % (0-4); MONOCYTES % (MANUAL) 8 % (5-12)
[2019-02-05 09:10] LABS: LYMPHOCYTES % (MANUAL) 11 % (20-46)
--- NOTE | 2019-02-05 10:00 | NUR ---
PATIENT IN NO DISTRESS. RESTING IN BED. WILL CONTINUE TO MONITOR THE PATIENT
[2019-02-05] MEDS ORDERED: BOWEL EVACUANT DRINK 4,000 ML PDS PO SCH (10:30)
[2019-02-05] MEDS: BISACODYL 5 MG TABEC PO SCH ×3 (11:35→20:38)
--- NOTE | 2019-02-05 11:55 | NUR ---
AWAKE AND ALERT VERBALLY RESPONSIVE NO EVIDENCE OF SOB NOTED SATURATION 98% ON SUPPLEMENTAL OXYGEN AT 2 LPM VIA NC STANDING TITRATION ORDER 88%-92% REMOVED FROM SUPPLEMENTAL OXYGEN MARKET RESEARCH INTERN TO MONITOR
--- NOTE | 2019-02-05 12:00 | NUR ---
PATIENT IN NO DISTRESS. WILL CONTINUE TO MONITOR
--- NOTE | 2019-02-05 12:04 | NUR ---
RECHECKED SATURATION NOTED NO SOB NOTED LUAN/RN NOTIFIED
--- NOTE | 2019-02-05 14:30 | NUR ---
PATIENT HAD A BIG BM. PATIENT CLEANSED BY SERGEANT AT [facility]. WILL CONTINUE TO MONITOR THE PATIENT
--- NOTE | 2019-02-05 15:16 | NUR ---
02/05/19 RD FOLLOW UP COMPLETED PLEASE REFER TO NUTRITION ASSESSMENT UNDER CARE ACTIVITY FOR ESTIMATED NUTRITIONAL NEEDS. 1. CONTINUE NPO MEDICALLY NECESSARY 2. WHEN PT IS MEDICALLY STABLE CONSIDER ADVANCING DIET TO RENAL 3. RD TO FOLLOW-UP 3-5 DAYS, MODERATE RISK AIDAN HIGGINS, RD
--- NOTE | 2019-02-05 15:32 | NUR ---
CONSENT SIGNED AND EXPLAINED TO PATIENT USING [employer] INTERPRETING SYSTEM FOR COLONOSCOPY AND I&D OF L LEG FOR TOMORROW. PATIENT HAD NO QUESTIONS AND SIGNED CONSENT
[2019-02-05] MEDS ORDERED: POTASSIUM CHLORIDE 40 MEQ, LIDOCAINE MPF 1% - 5 mL VIAL 25 MG in NACL 0.9% 250 ML IV ONE (15:45)
[2019-02-05 16:00] VITALS: BP 102/58
--- NOTE | 2019-02-05 17:24 | NUR ---
ADMINISTERED MEDS. PATIENT REFUSED NORCO AT THIS TIME. HELD COREG B/P ON LOW END, HELD PHOSLO PHOSPHORUS IS LOW AND PATIENT GETTING HD TOMORROW. EDUCATED ON MEDS. PATIENT TOLERATED WELL. WILL CONTINUE TO MONITOR THE PATIENT
--- NOTE | 2019-02-05 18:16 | NUR ---
NEW IV ON R HAND 22G, OLD IV INFILTRATED, REMOVED, TIP INTACT
--- NOTE | 2019-02-05 19:00 | NUR ---
PHARMACIST TALKED TO DR WALKER. K RIDER IS CANCELLED BECAUSE PATIENT HAS ESRD
[2019-02-05] MEDS: SODIUM PHOSPHATE 118 ML ENEM RC SCH (19:01)
--- NOTE | 2019-02-05 19:15 | NUR ---
GAVE BEDSIDE REPORT TO SILVERING APPLICATOR NURSE. PATIENT ENDORSED IN STABLE CONDITION
--- NOTE | 2019-02-05 19:20 | NUR ---
RECEIVED FROM AM RN IN BED AWAKE AND ALERT. ABLE TO VERBALIZE NEEDS WELL. NO COMPLAINTS DONE AT THIS TIME. SPEAKS OCCITAN. CALL LIGHT WITH IN REACH . DX. OF SEPSIS/ASCITES. HD PT. RE-ORIENTED TO CALL LIGHT USE FOR HELP. ENCOURAGED TO CALL FOR ANY HELP SHE MAY NEED. BED ALARM ON. CARE PLAN FOR THE NIGHT DISCUSSED WITH HER.
--- NOTE | 2019-02-05 21:04 | NUR ---
RECEIVED PATIENT ON ROOM AIR, PULSE OX SAT 97%. PATIENT DENIES SOB AT THIS TIME. PRN BREATHING TREATMENT NOT INDICATED. NO RESPIRATORY DISTRESS NOTED. WILL CONTINUE TO MONITOR.
--- NOTE | 2019-02-05 21:05 | NUR ---
PT. IN BED SLEEPING. NO COMPLAINTS OF ANY PAIN DONE. NO SOB. CALL LIGHT WITH IN REACH. BED ALARM ON.
[2019-02-06] VITALS: BP 100/56
--- NOTE | 2019-02-06 | NUR ---
VITAL SIGNS TAKEN . WAKES UP WHEN CALLED BY NAME OR WHEN TOUCHED. DENIES ANY PAIN. CALL LIGHT WITH IN REACH. NO SOB.
--- NOTE | 2019-02-06 03:47 | NUR ---
PT. SLEEPING WELL THIS SHIFT. NO RESTLESSNESS. BED ALARM ON. CALL LIGHT WITH IN REACH.
[2019-02-06] MEDS: SODIUM PHOSPHATE 118 ML ENEM RC SCH (05:53)
--- NOTE | 2019-02-06 06:08 | NUR ---
HAYLEE ENEMA ORDERED INTRODUCED . ABLE TO TAKE OUT RINGS FROM FINGERS BUT TOOK IT BACK AND PUT IT BACK IN HER FINGERS. RELIEF DRILLER AND ME TRIED TO EXPLAIN REASON FOR IT TO BE OUT OF HER FINGER. REFUSED AND HELD ON TO IT. WILL ENDORSE TO AM RN FOR CONTINUITY OF CARE. PT. NOTED SPEAKS ANGOLAN WELL AND HEBREW.
[2019-02-06 07:18] LABS: ANION GAP 14.9 (8-16); CARBON DIOXIDE 25.6 mmol/L (21-32); CHLORIDE 102 mmol/L (98-107); GLUCOSE 91 mg/dL (74-106); POTASSIUM 3.5 mmol/L (3.5-5.1); SODIUM SERUM 139 mmol/L (136-145); UREA NITROGEN, BLOOD 38 mg/dL (7-18)
[2019-02-06 07:29] LABS: MAGNESIUM 1.9 mg/dL (1.8-2.4); PHOSPHORUS 2.6 mg/dL (2.5-4.9)
[2019-02-06] MEDS ORDERED: MIDAZOLAM 2 MG/2 ML VIAL ONE (07:46)
[2019-02-06] MEDS ORDERED: fentaNYL 0.05 MG/ML VIAL ONE ×2 (07:46→09:39)
[2019-02-06] MEDS ORDERED: diphenhydrAMINE 50 MG/ML VIAL ONE (07:46)
--- NOTE | 2019-02-06 07:47 | NUR ---
PT OFF UNIT
[2019-02-06 07:56] LABS: CREATININE 5.3 mg/dL (0.6-1.3)
[2019-02-06 08:00] VITALS: BP 120/60
[2019-02-06] MEDS: CARVEDILOL 6.25 MG TAB PO SCH ×3 (08:00→16:49)
--- NOTE | 2019-02-06 08:00 | NUR ---
PATIENT WAS AWAKE, ALERT. RESPIRATION EVEN, UNLABOR ON ROOM AIR. SKIN DRY AND WARM. IV PATENT AND INTACT. AV SHUNT WITH THRILL AND BRUIT PRESENT. DENIED PAIN, N/V AT THIS TIME. PLAN OF CARE WAS DISCUSSED WITH PATIENT. BED AT LOW POSITION, SIDE RAILS UP. CALL LIGHT WITHIN REACH.
[2019-02-06 08:09] LABS: BASOPHILS # (AUTO) 0.2 K/uL (0.00-0.22); BASOPHILS % (AUTO) 0.8 % (0.0-2.0); EOSINOPHILS # (AUTO) 0.7 K/uL (0-0.4); EOSINOPHILS % (AUTO) 2.6 % (0.0-4.0); HEMOGLOBIN 11.8 g/dL (12.0-16.0); LYMPHOCYTES # (AUTO) 1.3 K/uL (2.5-16.5); LYMPHOCYTES % (AUTO) 4.9 % (20.5-51.1); MEAN CORPUSCULAR HEMOGLOBIN 32 pg (27-31); MEAN CORPUSCULAR HGB CONC 33 g/dL (33-37); MEAN CORPUSCULAR VOLUME 98.7 fL (80-94); MONOCYTES % (AUTO) 7.3 % (1.7-9.3); NEUTROPHILS # (AUTO) 22.7 K/uL (1.8-7.7); NEUTROPHILS % (AUTO) 84.4 % (42.2-75.2); PLATELET COUNT (AUTO) 156 K/uL (140-450); RED BLOOD CELL COUNT(AUTO) 3.64 MIL/uL (4.20-5.40); RED CELL DISTRIBUTION WIDTH 20.5 % (11.6-13.7)
--- NOTE | 2019-02-06 08:10 | NUR ---
PATIENT WAS TRANSFERRED TO GI LAB. PT IS STABLE AT THIS TIME
[2019-02-06] MEDS: MIDAZOLAM 2 MG/2 ML VIAL IVP ONE ×2 (08:11→08:58)
[2019-02-06] MEDS: fentaNYL 0.05 MG/ML VIAL IVP ONE ×2 (08:12→08:58)
[2019-02-06 08:45] VITALS: BP 85/52
--- NOTE | 2019-02-06 08:45 | NUR ---
PT WAS TRANSFERRED BACK TO UNIT. VS WAS TAKEN. REPORT WAS GIVEN AT BEDSIDE. PATIENT IS STABLE AT THIS TIME
[2019-02-06] MEDS: VITAMIN D 400 IU TAB PO SCH (08:56)
[2019-02-06] MEDS: METOLAZONE 2.5 MG TAB PO SCH (08:56)
[2019-02-06] MEDS: HYDROcodone/APAP 5/325 MG 1 TAB TAB PO SCH ×3 (08:56→16:48)
[2019-02-06] MEDS: VIT-B COMP/VIT-C/FOLIC ACID 1 TAB PO SCH (08:57)
[2019-02-06] MEDS: CALCIUM ACETATE 667 MG TAB PO SCH ×3 (08:57→16:48)
[2019-02-06] MEDS: FAMOTIDINE 20 MG TAB PO SCH (08:57)
[2019-02-06] MEDS: GABAPENTIN 100 MG CAP PO SCH (08:57)
[2019-02-06] MEDS: LACTOBACILLUS RHAMNOSUS GG 1 EACH CAP PO SCH (08:57)
[2019-02-06] MEDS: DOCUSATE SODIUM 100 MG GELCAP PO SCH ×2 (08:57→21:01)
--- NOTE | 2019-02-06 09:00 | NUR ---
P.T. NOTES LATE ENTRY - PATIENT WAS UNABLE TO BE SEEN FOR P.T. SERVICES AT THIS TIME DUE TO PATIENT WAS TAKEN TO O.R. FOR A PROCEDURE PER FABRICIO ARMSTRONG. PLAN: WE'LL FOLLOW UP AGAIN TOMORROW.
[2019-02-06] MEDS ORDERED: ONDANSETRON 4 MG/2 ML VIAL IVP PRN (09:35)
[2019-02-06] MEDS ORDERED: NACL 0.9% 1,000 ML IV SCH (09:35)
[2019-02-06] MEDS ORDERED: diphenhydrAMINE 50 MG/ML VIAL IVP PRN (09:35)
[2019-02-06] MEDS ORDERED: BUPIVACAINE-MPF 0.25% 30 ML VIAL INJ ONE (09:54)
--- NOTE | 2019-02-06 10:00 | NUR ---
PATIENT WAS TRANSFERRED TO OR. PATIENT IS STABLE AT THIS TIME
[2019-02-06 10:45] VITALS: BP 105/61
--- NOTE | 2019-02-06 10:45 | NUR ---
PATIENT WAS TRANSFERRED BACK FROM OR. REPORT WAS GIVEN AT BEDSIDE. VS WAS TAKEN. WOUND DRESSING CLEAN DRY AND INTACT
--- NOTE | 2019-02-06 12:00 | NUR ---
PATIENT WAS AWAKE, ALERT. RESPIRATION EVEN, UNLABOR ON ROOM AIR. MEDICAL CERTIFICATION SPECIALIST WAS AT BEDSIDE. CALL LIGHT WITHIN REACH
--- NOTE | 2019-02-06 14:20 | NUR ---
PATIENT IS SLEEPING COMFORTABLY. RESPIRATION EVEN, UNLABOR ON ROOM AIR. NO DISTRESS NOTED AT THIS TIME
[2019-02-06 16:00] VITALS: BP 97/55
--- NOTE | 2019-02-06 16:00 | NUR ---
PATIENT WAS AWAKE, ALERT. RESPIRATION EVEN, UNLABOR ON ROOM AIR. DENIED PAIN AT THIS TIME. DIALYSIS AT BEDSIDE. NO DISTRESS NOTED
--- NOTE | 2019-02-06 18:18 | NUR ---
PATIENT WAS AWAKE, ALERT, EATING DINNER COMFORTABLY. RESPIRATION EVEN, UNLABOR ON ROOM AIR. IV PATENT AND INTACT. NO DISTRESS NOTED AT THIS TIME
[2019-02-06] MEDS: HYDROcodone/APAP 5/325 MG 1 TAB TAB PO PRN (18:39)
--- NOTE | 2019-02-06 19:21 | NUR ---
ENDORSEMENT GIVEN TO SENIOR WINDOWS SYSTEMS ADMINISTRATOR NURSE. PATIENT IS STABLE AT THIS TIME
--- NOTE | 2019-02-06 19:22 | NUR ---
RECEIVED BEDSIDE REPORT FROM DAY SHIFT NURSE. PT SLEEPING IN BED. PERUVIAN SPEAKING. IV SITE ON R FA 22G, SL, PATENT, INTACT AND ASYMPTOMATIC. NO SOB OR ANY RESP DISTRESS NOTED. FALL PRECAUTION IN PLACE. BED IN LOW POSITION, CALL LIGHT WITH IN REACH. WILL CONTINUE TO MONITOR.
[2019-02-06] MEDS: ATORVASTATIN 20 MG TAB PO SCH (21:01)
--- NOTE | 2019-02-06 21:01 | NUR ---
PT AWAKE. GIVEN COLACE, LIPITOR, AND ROCEPHIN DRАлександр ORDERED. PT TOLERATED WELL. WILL CONTINUE TO MONITOR.
--- NOTE | 2019-02-06 23:05 | NUR ---
PT SLEEPING IN BED COMFORTABLY. NO S/S OF SOB OR ANY RESP DISTRESS NOTED. BED IN LOW POSITION, CALL LIGHT WITHIN REACH.
[2019-02-07] VITALS: BP 136/64
--- NOTE | 2019-02-07 00:10 | NUR ---
VS CHECKED. WITHIN NORMAL RANGE. WILL CONTINUE TO MONITOR.
--- NOTE | 2019-02-07 02:00 | NUR ---
PT SLEEPING IN BED COMFORTABLY. NO S/S OF SOB OR ANY RESP DISTRESS NOTED. BED IN LOW POSITION, CALL LIGHT WITHIN REACH. WILL CONTINUE TO MONITOR.
--- NOTE | 2019-02-07 04:33 | NUR ---
PT SLEEPING IN BED COMFORTABLY. BREATHING EVEN AND UNLABORED. BED IN LOW POSITION, CALL LIGHT WITHIN REACH.
--- NOTE | 2019-02-07 07:29 | NUR ---
ENDORSED PT TO DAY SHIFT NURSE. PT IN STABLE CONDITION.
--- NOTE | 2019-02-07 07:30 | NUR ---
BEDSIDE REPORT RECEIVED FROM FABRICIO WILLIAM. PATIENT ON MED SURGE AND STANDARD PRECAUTIONS IN PLACE. PATIENT AAOX1, ON ROOM AIR, NO DISTRESS NOTED, L LOWER LEG WOUND S/P SURGERY, DRESSING CLEAN DRY AND INTACT. PATIENT BEDREST AND INCONTINENT. FALL RISK PROTOCOL IN PLACE. IV ON R AC 22G SALINE LOCK, PATENT AND INTACT. AV SHUNT ON L ARM, SIGNS POSTED. BED IN LOW POSITION, CALL LIGHT WITHIN REACH, SIDE RAILS X2 UP Addendum: 02/07/19 at 1210 by Sharmila Palacios RN PATIENT AAOX4, COMMUNICATES APPROPRIATELY
[2019-02-07 08:00] VITALS: BP 142/71
[2019-02-07] MEDS: CARVEDILOL 6.25 MG TAB PO SCH ×2 (08:00→17:23)
[2019-02-07] MEDS: HYDROcodone/APAP 5/325 MG 1 TAB TAB PO SCH ×3 (09:00→17:00)
[2019-02-07] MEDS: LACTOBACILLUS RHAMNOSUS GG 1 EACH CAP PO SCH (09:00)
[2019-02-07] MEDS: DOCUSATE SODIUM 100 MG GELCAP PO SCH ×2 (09:07→20:19)
[2019-02-07] MEDS: CALCIUM ACETATE 667 MG TAB PO SCH ×3 (09:08→17:23)
[2019-02-07] MEDS: GABAPENTIN 100 MG CAP PO SCH (09:10)
[2019-02-07] MEDS: VITAMIN D 400 IU TAB PO SCH (09:12)
[2019-02-07] MEDS: VIT-B COMP/VIT-C/FOLIC ACID 1 TAB PO SCH (09:12)
[2019-02-07] MEDS: FAMOTIDINE 20 MG TAB PO SCH (09:14)
[2019-02-07] MEDS: METOLAZONE 2.5 MG TAB PO SCH (09:15)
--- NOTE | 2019-02-07 09:16 | NUR ---
ADMINISTERED SCHEDULED MEDS, EXCEPT NORCO, LACTOBACILLUS, CARVEDILOL SINCE PATIENT REFUSED
--- NOTE | 2019-02-07 10:29 | NUR ---
DR. DEL ROSARIO ORDERED TO CLEANSE L LEG WOUND S/P I&D WITH NS, PACK WITH 4X4, THEN WRAP WITH ABDOMINAL PAD, KERLIX WRAP, AND SAM WRAP TIGHTLY TO PREVENT BLEEDING AT SITE
[2019-02-07 11:32] LABS: HEMATOCRIT 38.9 % (36-48); HEMOGLOBIN 12.8 g/dL (12.0-16.0); MEAN CORPUSCULAR HEMOGLOBIN 33 pg (27-31); MEAN CORPUSCULAR HGB CONC 33 g/dL (33-37); MEAN CORPUSCULAR VOLUME 99.4 fL (80-94); PLATELET COUNT (AUTO) 178 K/uL (140-450); RED BLOOD CELL COUNT(AUTO) 3.91 MIL/uL (4.20-5.40); RED CELL DISTRIBUTION WIDTH 20.8 % (11.6-13.7)
[2019-02-07 11:36] LABS: ANION GAP 13.5 (8-16); ASPARTATE AMINOTRANSFERASE 30 U/L (15-37); CARBON DIOXIDE 26.8 mmol/L (21-32); CHLORIDE 101 mmol/L (98-107); GLUCOSE 136 mg/dL (74-106); MAGNESIUM 1.7 mg/dL (1.8-2.4); PHOSPHORUS 1.8 mg/dL (2.5-4.9); POTASSIUM 3.3 mmol/L (3.5-5.1); SODIUM SERUM 138 mmol/L (136-145); TOTAL BILIRUBIN 0.8 mg/dL (0.0-1.0); UREA NITROGEN, BLOOD 28 mg/dL (7-18)
--- NOTE | 2019-02-07 11:37 | NUR ---
ADMINISTERED SCHEDULED MEDS AND NORCO FOR PAIN BEFORE WOUND CARE
[2019-02-07 11:44] LABS: CREATININE 4.8 mg/dL (0.6-1.3)
[2019-02-07 11:45] LABS: WHITE BLOOD COUNT (AUTO) 26.8 K/uL (4.8-10.8)
--- NOTE | 2019-02-07 12:00 | NUR ---
WINSTON, WOUND CARE NURSE PERFORMED WOUND CARE DRESSING. CLEANSED WITH NS, PACKED WITH ADAPTIC DRESSING, COVERED WITH 4X4 GAUZE, WRAPPED WITH SAM BANDAGE. PATIENT TOLERATED WELL
[2019-02-07 12:04] LABS: EOSINOPHILS % (MANUAL) 2 % (0-4); LYMPHOCYTES % (MANUAL) 7 % (20-46); MONOCYTES % (MANUAL) 5 % (5-12)
--- NOTE | 2019-02-07 12:19 | NUR ---
WOUND CARE EVALUATION NOTE: REASON FOR EVALUATION: LEFT LOWER LEG SURGICAL WOUND SKIN ASSESSMENT DONE WITH THIS 78 Y/O FEMALE PT. ADMITTED FROM [facility] TO [facility] WITH INITIAL DX OF FEVER. PAST MEDICAL HX INCLUDES GERD, HTN, ESRD, DYSPEPSIA AND VIT D DEFICIENCY. PT. IS AAX4. PT SKIN IS WARM AND DRY, BLE NO HAIR GROWTH, DORSAL PEDAL PULSES PRESENT. CAPILLARY REFILLED < 2 SEC. PLAN OF CARE DISCUSSED WITH PRIMARY RN. INTEGUMENTARY -LEFT LOWER LEG S/P I&D HEMATOMA SURGICAL WOUND, 4X0.5X0.3 CM WITH UNDERMINING BETWEEN 7-11 0�CLOCK, WOUND BED 100% GRANULATION TISSUE, MOIST, NO ODOR, ANTONY WOUND SKIN INTACT, WITH ERYTHREDEMA AND SURROUNDING REDNESS OBSERVED RECOMMENDATIONS: -CLEANSE LEFT LOWER LEG S/P I&D SURGICAL WOUND WITH NS. PAT DRY, PACK WITH ADAPTIC DRESSING TO WOUND BED AND COVER WITH DRY DRESSING, WRAP WITH SAM BANDAGE QD AND PRN IF SOILING. -TURN AND REPOSITION PATIENT Q 2H OFFLOAD LEFT AND RIGHT HIPS -ASSESS AND MONITOR SKIN CONDITION DURING POSITION CHANGE, PLEASE PAY ATTENTION TO RIGHT AND LEFT HEELS -OFFLOAD BILATERAL HEELS BY PLACING PILLOWS UNDER CALVES AT ALL TIMES, UNLESS OTHERWISE CONTRAINDICATED -PRESSURE REDISTRIBUTION SURFACE THERAPY BY POSITION WITH PILLOWS -KEEP SKIN CLEAN AND DRY AT ALL TIMES. RECOMMENDATIONS DISCUSSED WITH PRIMARY RN WILL FOLLOW UP PATIENT Q7-10 DAYS AND PRN. PLEASE CONTACT WOUND CARE NURSE FOR ANY QUESTIONS AND CHANGES IN SKIN CONDITION.
[2019-02-07] MEDS: GAUZE TP SCH (13:00)
--- NOTE | 2019-02-07 13:40 | NUR ---
FRIENDS AT BEDSIDE, PATIENT SITTING COMFORTABLY IN BED
--- NOTE | 2019-02-07 13:51 | NUR ---
CALLED DR DENISE Bello AND NOTIFIED PATIENT'S WBC IS 26.[address] WALKER HOLD THE DISCHARGE FOR NOW
[2019-02-07 16:00] VITALS: BP 126/80
--- NOTE | 2019-02-07 16:47 | NUR ---
REINFORCED SAM BANDAGE ON L CALF S/P I&D INCISION, PATIENT WAS COMPLAINING OF IT BEING TOO TIGHT
[2019-02-07] MEDS ORDERED: MAG SULF 2000 MG/WATER PREMIX 50 ML IV SCH (17:00)
[2019-02-07] MEDS ORDERED: POTASSIUM CHLORIDE 10 MEQ TABER PO SCH (19:00)
--- NOTE | 2019-02-07 19:10 | NUR ---
GAVE BEDSIDE REPORT TO FABRICIO GOODEN. PATIENT ENDORSED IN STABLE CONDITION, AND ADMINISTERED K DUR NOW
--- NOTE | 2019-02-07 19:30 | NUR ---
RECEIVED BEDSIDE REPORT FROM DAY SHIFT RN, PATIENT IN BED, ON RA, IV IN RIGHT AC 20 G SL. NOTED LEFT S/P I&D, DRESSING INTACT. NOTED LEFT AV FISTULA HD TU//SAT. PATIENT DENIES PAIN. CALL LIGHT WITHIN REACH, WILL CONTINUE TO MONITOR.
[2019-02-07] MEDS: ATORVASTATIN 20 MG TAB PO SCH (20:19)
--- NOTE | 2019-02-07 20:27 | NUR ---
DUE MEDICATIONS GIVEN
--- NOTE | 2019-02-07 23:30 | NUR ---
PATIENT RESTING IN BED NO SIGNS OF DISTRESS WILL CONTINUE TO MONITOR
[2019-02-08] VITALS: BP 110/80
--- NOTE | 2019-02-08 00:50 | NUR ---
LEFT LOWER LEG S/P I&D HEMATOMA SURGICAL WOUND DRESSING INTACT, PATIENT SLEEPING NO SIGNS OF DISTRESS
[2019-02-08] MEDS: traZODone 50 MG TAB PO PRN (01:40)
--- NOTE | 2019-02-08 01:44 | NUR ---
PATIENT C/O NOT BEING ABLE TO SLEEP WILL MEDICATE ACCORDING TO MD ORDER
--- NOTE | 2019-02-08 03:52 | NUR ---
SLEEPING IN BED CALL LIGHT WITHIN REACH WILL CONTINUE TO MONITOR
--- NOTE | 2019-02-08 05:07 | NUR ---
[facility] ACCORDING TO MD ORDER
--- NOTE | 2019-02-08 05:59 | NUR ---
GRANITE POLISHER REPORTED PATIENT HAD SMALL BM
[2019-02-08 06:20] LABS: BASOPHILS # (AUTO) 0.1 K/uL (0.00-0.22); BASOPHILS % (AUTO) 0.6 % (0.0-2.0); EOSINOPHILS # (AUTO) 0.6 K/uL (0-0.4); HEMATOCRIT 31.3 % (36-48); HEMOGLOBIN 10.3 g/dL (12.0-16.0); LYMPHOCYTES # (AUTO) 0.9 K/uL (2.5-16.5); LYMPHOCYTES % (AUTO) 4.7 % (20.5-51.1); MEAN CORPUSCULAR HEMOGLOBIN 33 pg (27-31); MEAN CORPUSCULAR HGB CONC 33 g/dL (33-37); MEAN CORPUSCULAR VOLUME 99.3 fL (80-94); MONOCYTES # (AUTO) 1.8 K/uL (0.8-1.0); MONOCYTES % (AUTO) 9.2 % (1.7-9.3); NEUTROPHILS # (AUTO) 16.4 K/uL (1.8-7.7); NEUTROPHILS % (AUTO) 82.5 % (42.2-75.2); PLATELET COUNT (AUTO) 121 K/uL (140-450); RED BLOOD CELL COUNT(AUTO) 3.15 MIL/uL (4.20-5.40); RED CELL DISTRIBUTION WIDTH 20.6 % (11.6-13.7); WHITE BLOOD COUNT (AUTO) 19.9 K/uL (4.8-10.8)
[2019-02-08 06:38] LABS: MAGNESIUM 2.2 mg/dL (1.8-2.4); PHOSPHORUS 2.1 mg/dL (2.5-4.9)
[2019-02-08 06:57] LABS: ANION GAP 12.3 (8-16); CARBON DIOXIDE 25.9 mmol/L (21-32); CHLORIDE 102 mmol/L (98-107); GLUCOSE 88 mg/dL (74-106); POTASSIUM 4.2 mmol/L (3.5-5.1); SODIUM SERUM 136 mmol/L (136-145); UREA NITROGEN, BLOOD 37 mg/dL (7-18)
[2019-02-08 07:00] LABS: CREATININE 5.6 mg/dL (0.6-1.3)
--- NOTE | 2019-02-08 07:04 | NUR ---
CALL FROM LAB [facility] 5.[address] WALKER NO ANSWER PATIENT TO HAVE HD TODAY
--- NOTE | 2019-02-08 07:33 | NUR ---
ENDORSED PATIENT TO DAY SHIFT NURSE FOR CONTINUITY OF CARE. PATIENT STABLE.
--- NOTE | 2019-02-08 07:34 | NUR ---
RECEIVED BED SIDE REPORT FROM PIANO AND ORGAN REFINISHER RN. PT SLEEPING COMFORTABLY IN BED, TAIWANESE SPEAKING ONLY, WITH A SALINE LOCK ON R WRIST 22G. SAM BANDAGE ON LLE, WOUND CARE TO BE DONE TODAY AT 1300. ECHO TO BE DONE TODAY TO R/O ENDOCARDITIS. LUNG SOUNDS CLEAR. ON RA IN NO RESPIRATORY DISTRESS. WILL HAVE DIALYSIS TODAY, CONSENT FORM ALREADY SIGNED AND IN CHART. RIGHT PUNCTURE SITE ON RIGHT SIDE OF ABDOMEN, CLOSED AND NOT BLEEDING. ABDOMEN SOFT AND NONTENDER BUT LOOKS LIKE THERE IS STILL FLUID PRESENT. RIGHT SIDE OF ABDOMEN LOOKS LIKE BULGING BUT PT COMPLAINS OF PAIN. BED ALARM ON, BED SIDE COMMODE AT BEDSIDE, CALL LIGHT WITHIN REACH, WILL CONTINUE TO MONITOR
[2019-02-08 08:00] VITALS: BP 114/57
[2019-02-08] MEDS: METOLAZONE 2.5 MG TAB PO SCH (09:02)
[2019-02-08] MEDS: GABAPENTIN 100 MG CAP PO SCH (09:02)
[2019-02-08] MEDS: HYDROcodone/APAP 5/325 MG 1 TAB TAB PO SCH ×3 (09:03→17:00)
[2019-02-08] MEDS: CALCIUM ACETATE 667 MG TAB PO SCH ×3 (09:03→17:00)
[2019-02-08] MEDS: CARVEDILOL 6.25 MG TAB PO SCH ×2 (09:03→17:00)
[2019-02-08] MEDS: LACTOBACILLUS RHAMNOSUS GG 1 EACH CAP PO SCH (09:03)
[2019-02-08] MEDS: VITAMIN D 400 IU TAB PO SCH (09:04)
[2019-02-08] MEDS: VIT-B COMP/VIT-C/FOLIC ACID 1 TAB PO SCH (09:04)
[2019-02-08] MEDS: DOCUSATE SODIUM 100 MG GELCAP PO SCH ×2 (09:04→21:00)
--- NOTE | 2019-02-08 12:10 | NUR ---
DIALYSIS NURSE CALLED TO NOTIFY OF HD ORDER FOR TODAY.
[2019-02-08] MEDS: GAUZE TP SCH (12:59)
--- NOTE | 2019-02-08 13:16 | NUR ---
CHANGED PT'S DRESSING. OLD DRESSING HAD MODERATE AMOUNT OF BLEEDING NOTED. REMOVED SAM BANDAGE, 4/4 GAUZE AND CLEANSED WITH NS. APPLIED ADAPTIC DRESSING AND APPLIED 4/4 DRY GAUZE AND PUT NEW SAM BANDAGE ON TOP. GAVE PT NORCO PER MD ORDER AND SCHEDULE. PT TOLERATED PROCEDURE WELL WITH JUST A LITTLE BIT OF PAIN. ELEVATED BOTH EXTREMITIES WITH PILLOW. WILL CONTINUE TO MONITOR
[2019-02-08 16:00] VITALS: BP 99/49
--- NOTE | 2019-02-08 16:45 | NUR ---
PT'S BP 99/49. HELF COREG AND NORCO. WILL CONTINUE TO MONITOR
--- NOTE | 2019-02-08 19:25 | NUR ---
ENDORSED PT TO DIRECTOR OF CORPORATE REAL ESTATE. GAVE BED SIDE REPORT, PT IN STABLE CONDITION
--- NOTE | 2019-02-08 19:26 | NUR ---
RECEIVED BED SIDE REPORT FROM AM SHIFT NURSE. PT AWAKE, ALERT, O X 2, W/ CONFUSION NOTES, ALGERIAN SPEAKING ONLY, WITH A SALINE LOCK ON R WRIST 22G. WITH SAM BANDAGE ON LLE,DRY AND INTACT. NO RESPIRATORY DISTRESS. WILL HAVE DIALYSIS TODAY, CONSENT FORM ALREADY SIGNED AND IN CHART. W/ DIALYSIS PORT ON L UE. RIGHT PUNCTURE SITE ON RIGHT SIDE OF ABDOMEN, INTACT, NO BLEEDING NOTED. W/ ABDOMINAL DISTENTION (ASCITES) NOTED.WITH BEDSIDE COMMODE. CALL LIGHT WITHIN REACH, WILL CONTINUE TO MONITOR
[2019-02-08 20:00] VITALS: BP 99/56
[2019-02-08] MEDS: ATORVASTATIN 20 MG TAB PO SCH (21:00)
--- NOTE | 2019-02-08 21:30 | NUR ---
DIALYSIS NURSE AT BEDSIDE STARTED W/ DIALYSIS
--- NOTE | 2019-02-08 23:25 | NUR ---
PAGED DR. DORINA WALKER REGARDING PT, TRYING THE DIALYSIS TUBINGS. W/ ONGOING DIALYSIS
--- NOTE | 2019-02-09 00:19 | NUR ---
DIALYSIS DONE 2 L TAKEN OUT; HR 83, 115/64, 18, 95% O2 SAT; 0/10 PAIN
--- NOTE | 2019-02-09 00:30 | NUR ---
PT IN BED TURNED AND REPOSITIONED RESTRAINTS OFF, ORDER FOR RESTRAINTS COMPLETED, NO BEHAVIORS NOTED. V/S FOLLOWS T 98 P 77 R 18 B/P 102/45 02 90 ON ROOM AIR. PT REQUESTED A SIP OF WATER, PT GIVEN 1/2 CUP OF WATER . PT WENT BACK TO SLEEP. ALL FALLS PRECAUTIONS IN PLACE.
--- NOTE | 2019-02-09 00:59 | NUR ---
PT STILL TAKING OUT THE TUBES, IV LINE; TRYING TO GET UP AND NOT ABLE TO SLEEP, WILL GIVE DESYREL FOR SLEEPLESSNESS
[2019-02-09] MEDS: traZODone 50 MG TAB PO PRN (01:00)
--- NOTE | 2019-02-09 03:29 | NUR ---
CHECKED ON PATIENT FREQUENTLY, PT STILL NOT SLEEPING, TALKED TO THE PT BUT PATIENT CONFUSED.
[2019-02-09 04:00] VITALS: BP 131/57
--- NOTE | 2019-02-09 05:12 | NUR ---
CHECKED PT FREQUETLY RELEASED WRITS RESTRAINTS FOR TURNING, PT TRIED TO KICK ME. PUT RESTRAINTS BACK WITNESSED BY DOMINIC KLINE
--- NOTE | 2019-02-09 06:00 | NUR ---
PT PULLED OUT IVF ON RIGHT FOREARM G 20; DISCONTINUED IVF. RESTARTED ANOTHER IVF ON RIGHT HAND G 24, PATENT AND INTACT
--- NOTE | 2019-02-09 07:27 | NUR ---
ENDORSED TO NEXT SHIT FOR CONTINUITY OF CARE, PT IN STABLE CONDITION AT HIS TIME Addendum: 02/09/19 at 0730 by Airam Espinoza RN SHIFT; THIS
--- NOTE | 2019-02-09 07:28 | NUR ---
Received report from pm nurse Alegria. Pt asleep in bed, respirations even & nonlabored. Bilat soft wrist restraints in place. Left upper arm dressing clean, dry, & intact. Bed alarm on. Call light within reach. Addendum: 02/09/19 at 0743 by Shantelle Crowe RN Addendum: Right hand IV saline lock intact & asymptomatic.
[2019-02-09 08:00] VITALS: BP 112/62
[2019-02-09 08:02] LABS: BASOPHILS # (AUTO) 0.1 K/uL (0.00-0.22); BASOPHILS % (AUTO) 0.6 % (0.0-2.0); EOSINOPHILS # (AUTO) 0.4 K/uL (0-0.4); HEMATOCRIT 32.6 % (36-48); HEMOGLOBIN 10.8 g/dL (12.0-16.0); LYMPHOCYTES # (AUTO) 0.7 K/uL (2.5-16.5); LYMPHOCYTES % (AUTO) 3.9 % (20.5-51.1); MEAN CORPUSCULAR HEMOGLOBIN 33 pg (27-31); MEAN CORPUSCULAR HGB CONC 33 g/dL (33-37); MONOCYTES # (AUTO) 1.9 K/uL (0.8-1.0); MONOCYTES % (AUTO) 9.7 % (1.7-9.3); NEUTROPHILS # (AUTO) 16.2 K/uL (1.8-7.7); NEUTROPHILS % (AUTO) 83.8 % (42.2-75.2); PLATELET COUNT (AUTO) 123 K/uL (140-450); RED BLOOD CELL COUNT(AUTO) 3.29 MIL/uL (4.20-5.40); RED CELL DISTRIBUTION WIDTH 20.6 % (11.6-13.7); WHITE BLOOD COUNT (AUTO) 19.4 K/uL (4.8-10.8)
[2019-02-09] MEDS: VITAMIN D 400 IU TAB PO SCH (08:20)
[2019-02-09] MEDS: LACTOBACILLUS RHAMNOSUS GG 1 EACH CAP PO SCH (08:20)
[2019-02-09] MEDS: GABAPENTIN 100 MG CAP PO SCH (08:20)
[2019-02-09] MEDS: FAMOTIDINE 20 MG TAB PO SCH (08:20)
[2019-02-09] MEDS: CALCIUM ACETATE 667 MG TAB PO SCH ×3 (08:20→17:46)
[2019-02-09] MEDS: DOCUSATE SODIUM 100 MG GELCAP PO SCH ×2 (08:20→21:07)
[2019-02-09] MEDS: VIT-B COMP/VIT-C/FOLIC ACID 1 TAB PO SCH (08:21)
[2019-02-09] MEDS: CARVEDILOL 6.25 MG TAB PO SCH ×2 (08:21→17:44)
[2019-02-09] MEDS: METOLAZONE 2.5 MG TAB PO SCH (08:21)
[2019-02-09 08:22] LABS: MAGNESIUM 1.9 mg/dL (1.8-2.4); PHOSPHORUS 1.6 mg/dL (2.5-4.9)
[2019-02-09 08:56] LABS: ANION GAP 12.9 (8-16); CARBON DIOXIDE 27.4 mmol/L (21-32); CHLORIDE 102 mmol/L (98-107); CREATININE 3.9 mg/dL (0.6-1.3); GLUCOSE 88 mg/dL (74-106); POTASSIUM 3.3 mmol/L (3.5-5.1); SODIUM SERUM 139 mmol/L (136-145); UREA NITROGEN, BLOOD 21 mg/dL (7-18)
--- NOTE | 2019-02-09 12:00 | NUR ---
Rey Hernandez at bedside visiting pt. Pt calm & quiet, no episode of pulling on IV line. Bilat soft wrist restraints released at this time. Betsey Hernandez agrees to monitor pt, & will inform nurse when visitation is over. Call light within reach. Right hand IV intact & asymptomatic.
[2019-02-09] MEDS: GAUZE TP SCH (13:03)
--- NOTE | 2019-02-09 13:10 | NUR ---
Wound care to left lower leg completed. Pt awake during tx, no c/o pain, no signs of infection. Call light within reach.
[2019-02-09] MEDS ORDERED: POTASSIUM PHOSPHATE 15 MM in NACL 0.9% 250 ML IV SCH (14:30)
--- NOTE | 2019-02-09 15:40 | NUR ---
Informed by son David that he is leaving for today. Pt awake, noted to be pulling on right hand IV line with ongoing potassium phosphate infusion. Explained need for IV site, but pt cont to pull on IV lines. Reapplied bilat soft wrist restraints. Pt calm & quiet while on restraints. Call light within reach. No signs of distress.
[2019-02-09 16:00] VITALS: BP 106/52
--- NOTE | 2019-02-09 19:12 | NUR ---
Report given to nurse Princess.
--- NOTE | 2019-02-09 19:13 | NUR ---
RECEIVED ENDORSEMENT AT BEDSIDE FORM TU RN DAYSHIFT NURSE FOR CONTINUITY OF CARE, PT IN STABLE CONDITION.
--- NOTE | 2019-02-09 20:00 | NUR ---
PT IN BED WITH ALL FALLS PRECAUTIONS IN PLACE. AV FISTULA INTACT WITH THRILL AND BRUIT FELT. PT IS AOX1-2 AND MAORI SPEAKING. PT IV SITE INTACT AND FLUSHED PATENT AND PT CURRENTLY OFF RESTRAINTS SHE HAD FINISHED MOST OF HER DINNER AND IS PRAYING THE ROSARIES. NO S/S OF INJURY TO SKIN. POTASSIUM PHOSPHATE RUNNING ORDERED AT 42.5.
--- NOTE | 2019-02-09 20:15 | NUR ---
PT PLACED BACK ON SOFT WRIST RESTRAINTS SO THAT SHE WONT PULL ON IV LINES. PT HAS A CALM DEMEANOR. ALL FALLS PRECAUTIONS IN PLACE. V/S FOLLOWS T 97.3 P 75 R 18 B/P 108/53 02 92% ON R/A.
--- NOTE | 2019-02-09 21:00 | NUR ---
PT GIVEN DUE MEDS OF LIPITOR AND COLACE, PT EDUCATION PROVIDED. RESTRAINTS RELEASED NO S/S OF INJURY AND PT REMAINS CALM AND CURRENTLY NOT PULLING ON IV SITE.
[2019-02-09] MEDS: ATORVASTATIN 20 MG TAB PO SCH (21:07)
--- NOTE | 2019-02-09 22:00 | NUR ---
POTASSIUM PHOSPHATASE COMPLETED. ROCEPHIN IV ABT HUNG AND RUNNING ORDERED FOR LEFT LEG CELLULITES. PT RELEASED FROM RESTRAINTS, PT TURNED CHANGED AND REPOSITIONED, SHE HAD INCONTINENT EPISODE X1. ALL FALLS PRECAUTIONS IN PLACE. PT CONTINUE TO BE CATALINA AND COOPERATIVE.
[2019-02-10] VITALS: BP 102/45
--- NOTE | 2019-02-10 03:16 | NUR ---
PT IN BED SLEEPING ALL FALLS PRECAUTIONS IN PLACE.
[2019-02-10 06:57] LABS: HEMATOCRIT 33.2 % (36-48); HEMOGLOBIN 11.3 g/dL (12.0-16.0); MEAN CORPUSCULAR HEMOGLOBIN 34 pg (27-31); MEAN CORPUSCULAR HGB CONC 34 g/dL (33-37); MEAN CORPUSCULAR VOLUME 99.2 fL (80-94); PLATELET COUNT (AUTO) 123 K/uL (140-450); RED BLOOD CELL COUNT(AUTO) 3.35 MIL/uL (4.20-5.40); RED CELL DISTRIBUTION WIDTH 20.8 % (11.6-13.7); WHITE BLOOD COUNT (AUTO) 22.7 K/uL (4.8-10.8)
--- NOTE | 2019-02-10 07:15 | NUR ---
RECEIVED PT FROM TIGHT BARREL INSPECTOR NURSE, PT IS AWAKE AND LYING ON THE BED, SIDE RAILS ARE UP AND CALL LIGHT WITHIN REACH, HAS AN IV LINE ON THE RT WRIST G.24 ON SALINE LOCK, FALL AND SAFETY PRECAUTION ENFORCE, BED ALARM ACTIVATED, NO SIGN OF DISTRESS NOTED AND WILL MONITOR PT.
[2019-02-10 07:16] LABS: ALBUMIN 2.4 g/dL (3.4-5.0); ANION GAP 16.4 (8-16); ASPARTATE AMINOTRANSFERASE 28 U/L (15-37); CARBON DIOXIDE 23.7 mmol/L (21-32); CHLORIDE 101 mmol/L (98-107); GLUCOSE 90 mg/dL (74-106); MAGNESIUM 1.9 mg/dL (1.8-2.4); PHOSPHORUS 3.2 mg/dL (2.5-4.9); POTASSIUM 4.1 mmol/L (3.5-5.1); SODIUM SERUM 137 mmol/L (136-145); TOTAL BILIRUBIN 0.7 mg/dL (0.0-1.0); UREA NITROGEN, BLOOD 32 mg/dL (7-18)
--- NOTE | 2019-02-10 07:43 | NUR ---
ENDORSED CARE TO AM SHIFT PT IN STABLE CONDITION.
[2019-02-10 07:46] LABS: LYMPHOCYTES % (MANUAL) 4 % (20-46); MONOCYTES % (MANUAL) 3 % (5-12)
[2019-02-10 08:00] VITALS: BP 107/56
[2019-02-10 08:11] LABS: CREATININE 5.1 mg/dL (0.6-1.3)
[2019-02-10] MEDS: VIT-B COMP/VIT-C/FOLIC ACID 1 TAB PO SCH (08:49)
[2019-02-10] MEDS: METOLAZONE 2.5 MG TAB PO SCH (08:51)
[2019-02-10] MEDS: CALCIUM ACETATE 667 MG TAB PO SCH ×3 (08:51→17:03)
[2019-02-10] MEDS: DOCUSATE SODIUM 100 MG GELCAP PO SCH ×2 (08:51→21:00)
[2019-02-10] MEDS: GABAPENTIN 100 MG CAP PO SCH (08:52)
[2019-02-10] MEDS: VITAMIN D 400 IU TAB PO SCH (08:52)
[2019-02-10] MEDS: CARVEDILOL 6.25 MG TAB PO SCH ×2 (08:52→17:00)
[2019-02-10] MEDS: LACTOBACILLUS RHAMNOSUS GG 1 EACH CAP PO SCH (08:52)
--- NOTE | 2019-02-10 08:55 | NUR ---
PT IS AWAKE AND SEATED ON THE BED, SIDE RAILS UP, VITAL SIGNS CHECKED AND BP IS 114/58, PULSE IS 87, O2 SATURATION IS 94%, PT DENIES PAIN, ORAL MEDICATIONS WERE GIVEN AND PT TOLERATED IT. NO SIGN OF DISTRESS NOTED AND WILL MONITOR PT.
--- NOTE | 2019-02-10 09:01 | NUR ---
PT IS OFF THE UNIT NOW FOR A CT OF ABDOMEN AND PELVIS WITHOUT CONTRAST. PT IS STABLE AT THIS TIME.
--- NOTE | 2019-02-10 09:20 | NUR ---
PT IS BACK TO UNIT NOW.
--- NOTE | 2019-02-10 09:34 | NUR ---
BLOOD IS BEING EXTRACTED TO PT NOW FOR A BLOOD CULTURE ORDER.
--- NOTE | 2019-02-10 10:25 | NUR ---
PT WAS SEEN AMBULATING TO THE HALLWAY WITH PHYSICAL THERAPIST, WITH THE USE OF WALKER AND HAS A STEADY GAIT. NO SOB NOTED. WILL MONITOR PT.
--- NOTE | 2019-02-10 11:08 | NUR ---
CALLED [facility], SPOKE WITH JACKIE UPDATED PATIENT'S CLINICAL NOTES AND REQUESTING IF THEY CAN APPROVE THE [facility] EVAL. FAXED THE ORDER FOR JACKIE [phone]
--- NOTE | 2019-02-10 11:16 | NUR ---
PT WAS GIVEN PHOSLO TABLET NOW, NO SIGN OF DISTRESS NOTED. WILL MONITOR PT.
--- NOTE | 2019-02-10 12:25 | NUR ---
WOUND ASSESSMENT WAS DONE TO PT'S LEFT LEG, CLEANSED WITH NS AND PAT DRY, APPLIED ADAPTIC DRESSING AND REINFORCED WITH DRY DRESSING AND SAM BANDAGE. NO SIGN OF DISTRESS NOTED, PT IS CALM AND NO COMPLAIN OF PAIN WHILE DOING ASSESSMENT. WILL MONITOR PT.
[2019-02-10] MEDS: GAUZE TP SCH (12:26)
[2019-02-10] MEDS ORDERED: VANCOMYCIN PER PHARMACY MC PRN (12:30)
[2019-02-10] MEDS: FLUCONAZOLE 200 MG/NS PREMIX 100 ML IV SCH (13:19)
--- NOTE | 2019-02-10 13:26 | NUR ---
FLUCONAZOLE IVPB WAS STARTED TO PT NOW. WILL MONITOR PT.
--- NOTE | 2019-02-10 14:00 | NUR ---
FRANCHESKA FROM RADIOLOGY CALLED AND INFORMED THAT THE WBC SCAN ORDERED FOR THE PT IS NOT BEING DONE HERE BUT INSTEAD IN [place] AND THE EARLIEST TIME THAT THE PROCEDURE CAN BE DONE WILL BE ON SUNDAY BETWEEN 11AM-3PM. KIKE IRVIN MADE AWARE.
--- NOTE | 2019-02-10 14:19 | NUR ---
CALLED DUANE PATIENT SWITCHBOARD CLERK FOR [employer] [phone] LEFT A MESSAGE TO EVALUATE FOR [facility]
--- NOTE | 2019-02-10 14:25 | NUR ---
CALLED DIRECTOR OF SEARCH ENGINE MARKETING DOMINIC Oneill [phone] AND LEFT A MESSAGE FOR [facility] EVAL AUTHORIZATION
--- NOTE | 2019-02-10 14:48 | NUR ---
PT WAS STARTED ON VANCOMYCIN AT A RATE OF 135ML/HR. WILL MONITOR PT.
[2019-02-10] MEDS ORDERED: VANCOMYCIN 1GM/DEXT 5% PREMIX 200 ML IV SCH (15:00)
[2019-02-10 16:00] VITALS: BP 101/55
--- NOTE | 2019-02-10 16:00 | NUR ---
02/10/19 RD FOLLOW UP COMPLETED PLEASE REFER TO NUTRITION ASSESSMENT UNDER CARE ACTIVITY FOR ESTIMATED NUTRITIONAL NEEDS. 1. CONTINUE RENAL DIET TOLERATED 2. ENCOURAGE INCREASING PO INTAKE ABOVE 75% 3. RD TO FOLLOW-UP 3-5 DAYS, MODERATE RISK AIDAN HIGGINS, RD
--- NOTE | 2019-02-10 17:05 | NUR ---
PT'S ORAL MEDICATION WAS GIVEN BUT COREG WAS HELD PER PARAMETER, BP IS 101/55, PULSE IS 79, O2 SATURATION IS 94%.
--- NOTE | 2019-02-10 19:03 | NUR ---
INFORMED DR. Margot WALKER THAT [place] WBC SCAN LATEST WILL BE ON SUNDAY AT [facility], PLS LET FEED MANAGER KNOW. WILL ENDORSE TO AM SHIFT TMRW. DR. WALKER AGREED Addendum: 02/10/19 at 2041 by Airam Espinoza RN 1929 CHANGED TIME
--- NOTE | 2019-02-10 19:10 | NUR ---
ENDORSED PT TO MACHINE BINDING FOLDER NURSE FOR CONTINUITY OF CARE. PT IS STABLE AT THIS TIME.
--- NOTE | 2019-02-10 19:11 | NUR ---
RECEIVED PT FROM LOGISTICS SUPERVISOR NURSE, PT IS AWAKE, O X 3. SUPINE ON THE BED, NO SIGN OF DISTRESS .NOTED HAS AN IV LINE ON THE RT WRIST G.24 ON SALINE LOCK, SIDE RAILS ARE UP AND CALL LIGHT WITHIN REACH, FALL AND SAFETY PRECAUTION ENFORCE, BED ALARM ACTIVATED,AND WILL MONITOR PT.
--- NOTE | 2019-02-10 20:34 | NUR ---
CALLED DR. MORELAND HE ORDERED TOMORROW 2018 IN THE AM 3 HRS' NO HEPARIN 2 LITERS TOLERATED. GORDON, DIALYSIS INFORMED FACE TO FACE.
[2019-02-10] MEDS: ATORVASTATIN 20 MG TAB PO SCH (21:00)
--- NOTE | 2019-02-10 21:40 | NUR ---
PT REFUSED TO TAKE COLACE, INFORMED HER THE RISKS AND BENEFITS, PT UNDERSTOOD. SHE HAD A BM THIS MORNING PER PT
[2019-02-10] MEDS ORDERED: cefTRIAXone 1,000 MG VIAL ONE (21:44)
--- NOTE | 2019-02-10 21:58 | NUR ---
HELD THE LIPITOR PT'S BP IS 114/50MMHG WILL MONITOR'S PT'S BP
--- NOTE | 2019-02-10 22:59 | NUR ---
ENDORSED PT TO COLLEAGUE NOC NURSEADRI. PT AWAKE, ALERT OR X 3, SOUTH AFRICAN SPEAKING. PT CALM AT THIS TIME, TRYING TO GET SOME SLEEP. NO RESPIRATORY DISTRESS.
--- NOTE | 2019-02-10 23:00 | NUR ---
RECEIVED BEDSIDE REPORT FROM KIRSTEN. PT IS AAO X2. ON ROOM AIR RESPIRATIONS ARE EQUAL AND UNLABORED. L AV FISTULA HD TOMORROW AT 0800 CONSENT IN CHART. S/P I&D OF LEFT LEG DRESSING IS C/D/I. PT IS BED REST AND INCONTINENT. ON STANDARD ISO. IV ON R WRIST SL. SAFETY MEASURES ARE IN PLACE. CALL LIGHT WITHIN REACH.
[2019-02-10 23:09] VITALS: BP 109/48
--- NOTE | 2019-02-11 | NUR ---
VITAL SIGNS ARE WITHIN NORMAL LIMITS. NO S/S OF DISTRESS. CALL LIGHT WITHIN REACH. WILL CONTINUE TO MONITOR.
--- NOTE | 2019-02-11 02:32 | NUR ---
PT IS SLEEPING COMFORTABLY IN BED. RESPIRATIONS ARE EQUAL AND UNLABORED. CALL LIGHT IS WITHIN REACH.
--- NOTE | 2019-02-11 04:30 | NUR ---
PT SLEEPING COMFORTABLY IN BED. RESPIRATIONS ARE EQUAL AND UNLABORED. CALL LIGHT WITHIN REACH.
[2019-02-11 07:15] LABS: BASOPHILS # (AUTO) 0.1 K/uL (0.00-0.22); BASOPHILS % (AUTO) 0.4 % (0.0-2.0); EOSINOPHILS # (AUTO) 0.4 K/uL (0-0.4); EOSINOPHILS % (AUTO) 1.8 % (0.0-4.0); HEMATOCRIT 32.8 % (36-48); LYMPHOCYTES # (AUTO) 0.9 K/uL (2.5-16.5); LYMPHOCYTES % (AUTO) 3.9 % (20.5-51.1); MEAN CORPUSCULAR HEMOGLOBIN 33 pg (27-31); MEAN CORPUSCULAR HGB CONC 34 g/dL (33-37); MEAN CORPUSCULAR VOLUME 98.8 fL (80-94); MONOCYTES % (AUTO) 8.9 % (1.7-9.3); NEUTROPHILS # (AUTO) 18.6 K/uL (1.8-7.7); PLATELET COUNT (AUTO) 110 K/uL (140-450); RED BLOOD CELL COUNT(AUTO) 3.32 MIL/uL (4.20-5.40); RED CELL DISTRIBUTION WIDTH 20.7 % (11.6-13.7); WHITE BLOOD COUNT (AUTO) 21.9 K/uL (4.8-10.8)
--- NOTE | 2019-02-11 07:26 | NUR ---
GAVE BEDSIDE REPORT TO DAY SHIFT RN. PT ENDORSED IN STABLE CONDITION.
--- NOTE | 2019-02-11 07:30 | NUR ---
RECEIVED PT FROM THERAPY DIRECTOR NURSE, PT IS AWAKE AND LYING ON THE BED, SIDE RAILS ARE UP AND CALL LIGHT WITHIN REACH, BED ALARM ACTIVATED, SAFETY AND FALL PRECAUTION ENFORCED, PT HAS A LEFT AV FISTULA FOR DIALYSIS AND A RT WRIST G.25 IV LINE ON SALINE LOCK, PT DENIES PAIN AND NO SIGN OF DISTRESS NOTED. WILL CONTINUE TO MONITOR PT.
[2019-02-11 07:32] LABS: ANION GAP 15.9 (8-16); CARBON DIOXIDE 24.2 mmol/L (21-32); CHLORIDE 98 mmol/L (98-107); GLUCOSE 91 mg/dL (74-106); POTASSIUM 4.1 mmol/L (3.5-5.1); SODIUM SERUM 134 mmol/L (136-145); UREA NITROGEN, BLOOD 41 mg/dL (7-18)
[2019-02-11 07:35] LABS: PHOSPHORUS 3.3 mg/dL (2.5-4.9)
[2019-02-11 07:42] LABS: CREATININE 6.3 mg/dL (0.6-1.3)
[2019-02-11 08:00] VITALS: BP 113/54
[2019-02-11] MEDS: CARVEDILOL 6.25 MG TAB PO SCH ×2 (08:00→16:51)
[2019-02-11] MEDS: METOLAZONE 2.5 MG TAB PO SCH (09:00)
--- NOTE | 2019-02-11 09:20 | NUR ---
PT IS HAVING A PHYSICAL THERAPY EVALUATION NOW, AMBULATES STEADY WITH WALKER.
[2019-02-11] MEDS: DOCUSATE SODIUM 100 MG GELCAP PO SCH ×2 (09:35→21:00)
[2019-02-11] MEDS: LACTOBACILLUS RHAMNOSUS GG 1 EACH CAP PO SCH (09:35)
[2019-02-11] MEDS: VITAMIN D 400 IU TAB PO SCH (09:35)
[2019-02-11] MEDS: GABAPENTIN 100 MG CAP PO SCH (09:35)
[2019-02-11] MEDS: VIT-B COMP/VIT-C/FOLIC ACID 1 TAB PO SCH (09:36)
[2019-02-11] MEDS: CALCIUM ACETATE 667 MG TAB PO SCH ×3 (09:36→16:51)
[2019-02-11] MEDS: FAMOTIDINE 20 MG TAB PO SCH (09:36)
--- NOTE | 2019-02-11 09:39 | NUR ---
PT IS AWAKE AND SEATED ON THE BED, ORAL MEDICATIONS WERE GIVEN AND PT TOLERATED IT, NO SIGN OF DISTRESS NOTED AND WILL MONITOR PT.
--- NOTE | 2019-02-11 10:26 | NUR ---
CALLED SCAN [facility] PLAN SPOKE WITH [employer] DIRECTOR REGARDING LTAC EVAL, UPDATED HER PATIENT'S CONDITION AND CLINICAL NOTES PER DOMINIC IN ORDER TO BE QUALIFIED FOR LTAC PATIENT HAS TO BE 30 DAYS ANTIBIOTICS. I CALLED DR RODRIGUEZ FOR THE PLAN PER DR DENISE Bello ID JUST STARTED NEW IV ABX DIFLUCAN AND NEW CONSULT WITH PLASTIC SHEETS FINISHING SUPERVISOR DR SALINAS. WILL F/U AND UPDATE [employer]
--- NOTE | 2019-02-11 11:05 | NUR ---
PT IS HAVING DIALYSIS NOW.
--- NOTE | 2019-02-11 11:46 | NUR ---
LUIS ALBERTO MEDICATION WAS GIVEN TO PT NOW, PT IS STILL ON DIALYSIS.
[2019-02-11] MEDS: GAUZE TP SCH (13:01)
--- NOTE | 2019-02-11 14:34 | NUR ---
DIALYSIS WAS FINISHED NOW, 1.3L OUTPUT, PT'S BP IS 97/56, PULSE IS 80, WILL MONITOR PT.
[2019-02-11] MEDS: FLUCONAZOLE 200 MG/NS PREMIX 100 ML IV SCH (15:01)
--- NOTE | 2019-02-11 15:14 | NUR ---
PT'S IV MEDICATION WAS GIVEN NOW.
[2019-02-11 16:00] VITALS: BP 119/60
--- NOTE | 2019-02-11 16:52 | NUR ---
PT WAS REPOSITIONED NOW AND ORAL MEDICATION WAS GIVEN, BP MEDICATION WAS HELD BECAUSE BP IS 107/62, PULSE IS 85, O2 SATURATION IS 95%, NO SIGN OF DISTRESS NOTED AND WILL MONITOR PT.
--- NOTE | 2019-02-11 19:10 | NUR ---
ENDORSED PT TO BOW REPAIRER CUSTOM NURSE FOR CONTINUITY OF CARE.
--- NOTE | 2019-02-11 19:15 | NUR ---
RECEIVED BEDSIDE REPORT FROM ILAN REGALADO. PT IS AAO X2. SERBIAN SPEAKING ONLY. ON ROOM AIR RESPIRATIONS ARE EQUAL AND UNLABORED. L AV FISTULA HD TODAY 1.3L TAKEN OUT. S/P I&D OF LEFT LEG DRESSING IS C/D/I. PT IS BED REST AND INCONTINENT. ON STANDARD ISO. IV ON R WRIST SL. SAFETY MEASURES ARE IN PLACE. CALL LIGHT WITHIN REACH.
[2019-02-11] MEDS: ATORVASTATIN 20 MG TAB PO SCH (21:13)
--- NOTE | 2019-02-11 21:14 | NUR ---
SCHEDULED MEDICATIONS GIVEN. PT REFUSED COLACE. ALL NEEDS MET AT THIS TIME. WILL CONTINUE TO MONITOR.
[2019-02-11 23:36] VITALS: BP 133/71
--- NOTE | 2019-02-11 23:38 | NUR ---
VITAL SIGNS ARE WITHIN NORMAL LIMITS. NO S/S OF DISTRESS. WILL CONTINUE TO MONITOR.
--- NOTE | 2019-02-12 02:30 | NUR ---
PT IS SLEEPING COMFORTABLY IN BED. NO S/S OF DISTRESS. CALL LIGHT IS WITHIN REACH.
--- NOTE | 2019-02-12 04:00 | NUR ---
PT SLEEPING COMFORTABLY IN BED. RESPIRATIONS ARE EQUAL AND UNLABORED. CALL LIGHT WITHIN REACH.
--- NOTE | 2019-02-12 06:14 | NUR ---
PATIENT WAS CLEANED AND REPOSITION FOR COMFORT. ALL NEEDS MET AT THIS TIME. CALL LIGHT IS WITHIN REACH.
[2019-02-12 06:59] LABS: HEMATOCRIT 32.9 % (36-48); HEMOGLOBIN 11.1 g/dL (12.0-16.0); MEAN CORPUSCULAR HEMOGLOBIN 33 pg (27-31); MEAN CORPUSCULAR HGB CONC 34 g/dL (33-37); MEAN CORPUSCULAR VOLUME 98.9 fL (80-94); PLATELET COUNT (AUTO) 126 K/uL (140-450); RED BLOOD CELL COUNT(AUTO) 3.33 MIL/uL (4.20-5.40); WHITE BLOOD COUNT (AUTO) 22.4 K/uL (4.8-10.8)
[2019-02-12 07:11] LABS: ANION GAP 13.6 (8-16); CARBON DIOXIDE 27.2 mmol/L (21-32); CHLORIDE 102 mmol/L (98-107); GLUCOSE 90 mg/dL (74-106); POTASSIUM 3.8 mmol/L (3.5-5.1); SODIUM SERUM 139 mmol/L (136-145); UREA NITROGEN, BLOOD 29 mg/dL (7-18)
[2019-02-12 07:13] LABS: MAGNESIUM 1.7 mg/dL (1.8-2.4); PHOSPHORUS 2.7 mg/dL (2.5-4.9)
--- NOTE | 2019-02-12 07:24 | NUR ---
GAVE BEDSIDE REPORT TO DAY SHIFT RN. PT ENDORSED IN STABLE CONDITION.
--- NOTE | 2019-02-12 07:26 | NUR ---
RECEIVED REPORT FROM OTOLOGIST NURSE. PT IS LYING IN BED. AAOX2, NEEDS TO BE REORIENTED AND GIVEN REMINDERS. LUNG SOUNDS CLEAR UPON AUSCULTATION. IV ON RT HAND 24 GA SALINE LOCK. IV DRESSING IS CLEAN, DRY AND INTACT. AV FISTULA ON LT UPPER ARM, DRESSING IS CLEAN, DRY AND INTACT. ABDOMEN SOFT AND FLAT, ACTIVE BOWEL SOUNDS, LBM 02/12. SKIN COLOR IS APPROPRIATE TO ETHNICITY, WARM TO TOUCH. SKIN IS INTACT, NO REDNESS NOTED. REVIEWED PLAN OF CARE WITH PATIENT. PT NEEDS REINFORCEMENT. PT IN FALL PRECAUTIONS WITH FALL RISK SIGN, YELLOW ARM BAND, YELLOW GOWN, AND YELLOW SOCKS. SAFETY MEASURES IN PLACE, BED ON LOW POSITION, BED ALARM ON. CALL LIGHT WITHIN REACH.
[2019-02-12 07:41] LABS: CREATININE 4.6 mg/dL (0.6-1.3)
[2019-02-12 07:51] LABS: EOSINOPHILS % (MANUAL) 2 % (0-4); LYMPHOCYTES % (MANUAL) 4 % (20-46); MONOCYTES % (MANUAL) 8 % (5-12)
[2019-02-12 08:00] VITALS: BP 124/60
[2019-02-12] MEDS ORDERED: MAG SULF 2000 MG/WATER PREMIX 50 ML IV SCH (09:00)
[2019-02-12] MEDS: LACTOBACILLUS RHAMNOSUS GG 1 EACH CAP PO SCH (09:08)
[2019-02-12] MEDS: VIT-B COMP/VIT-C/FOLIC ACID 1 TAB PO SCH (09:08)
[2019-02-12] MEDS: METOLAZONE 2.5 MG TAB PO SCH (09:08)
[2019-02-12] MEDS: CALCIUM ACETATE 667 MG TAB PO SCH ×3 (09:08→16:58)
[2019-02-12] MEDS: DOCUSATE SODIUM 100 MG GELCAP PO SCH ×2 (09:08→21:00)
[2019-02-12] MEDS: VITAMIN D 400 IU TAB PO SCH (09:08)
[2019-02-12] MEDS: CARVEDILOL 6.25 MG TAB PO SCH ×2 (09:09→16:58)
[2019-02-12] MEDS: GABAPENTIN 100 MG CAP PO SCH (09:09)
--- NOTE | 2019-02-12 09:16 | NUR ---
PT GIVEN MAG RIDER. RESPIRATIONS EVEN AND UNLABORED ON RA.
--- NOTE | 2019-02-12 09:30 | NUR ---
PT AMBULATING PT IN HALLWAY. PT IS TOLERATING ACTIVITY WELL.
--- NOTE | 2019-02-12 11:20 | NUR ---
MAG RIDER INFUSION COMPLETED. PT SHOWS NO S/S OF DISTRESS.
[2019-02-12] MEDS: FLUCONAZOLE 200 MG/NS PREMIX 100 ML IV SCH (12:18)
[2019-02-12] MEDS: GAUZE TP SCH (13:00)
--- NOTE | 2019-02-12 13:00 | NUR ---
DRESSING TO LEFT LOWER LEG CHANGED PER ORDER. NO EXCESSIVE BLEEDING NOTED. PT TOLERATED WELL.
--- NOTE | 2019-02-12 14:00 | NUR ---
DR. JOHNSON AT BEDSIDE TO ASSESS PT. PER PHYSICIAN ELEVATED WBC MOST LIKELY FROM INFECTION. NO NEW ORDERS.
[2019-02-12 16:00] VITALS: BP 109/67
--- NOTE | 2019-02-12 16:25 | NUR ---
SPOKE TO LOC FROM CASE MANAGEMENT TO FOLLOW-UP WITH WBC SCAN AT [facility]. PER LOC, ALBARO EKG TECHNICIAN WILL ASSIST WITH TRANSPORTING PT TO [facility] FOR THE TEST.
--- NOTE | 2019-02-12 16:58 | NUR ---
MEDICATIONS GIVEN TO PT. PT PREFERS TO LAY FLAT IN BED AT THIS TIME. NO C/O PAIN. NO S/S OF DISTRESS. RESPIRATIONS EVEN AND UNLABORED ON RA.
--- NOTE | 2019-02-12 17:22 | NUR ---
ENDORSED PT TO TRANSPLANTER ORCHID NURSE FOR CONTINUITY OF CARE. NO SIGNS OF DISTRESS AT THIS TIME.
--- NOTE | 2019-02-12 19:22 | NUR ---
RECEIVED BEDSIDE REPORT FROM TU REGALADO. PT IS AAO X2. CAMEROONIAN SPEAKING ONLY. ON ROOM AIR RESPIRATIONS ARE EQUAL AND UNLABORED. L AV FISTULA HD YESTERDAY 1.3L TAKEN OUT. S/P I&D OF LEFT LEG DRESSING IS C/D/I. DRESSING CHANGE DONE TODAY. PT IS BED REST AND INCONTINENT/OLIGURIA. ON STANDARD ISO. IV ON R WRIST SL. SAFETY MEASURES ARE IN PLACE. CALL LIGHT WITHIN REACH.
--- NOTE | 2019-02-12 20:18 | NUR ---
RECEIVED PATIENT ON ROOM AIR, PULSE OX SAT 93%. PATIENT DENIES ANY SOB. NO RESPIRATORY DISTRESS NOTED AT THIS TIME. PRN HHN NOT INDICATED AT THIS TIME. WILL CONTINUE TO MONITOR.
[2019-02-12] MEDS: ATORVASTATIN 20 MG TAB PO SCH (21:00)
--- NOTE | 2019-02-12 21:00 | NUR ---
SCHEDULED MEDICATIONS GIVEN PT TOLERATED WELL. NO S/S OF DISTRESS. PT WAS CLEANED AND REPOSITION FOR COMFORT. SAFETY MEASURES ARE IN PLACE. WILL CONTINUE TO MONITOR.
[2019-02-12 23:52] VITALS: BP 100/58
--- NOTE | 2019-02-12 23:53 | NUR ---
VITAL SIGNS ARE WITHIN NORMAL LIMITS. DENIES ANY PAIN OR SOB. ALL NEEDS MET AT THIS TIME. WILL CONTINUE TO MONITOR.
--- NOTE | 2019-02-13 01:16 | NUR ---
PT IS SLEEPING COMFORTABLY IN BED. NO S/S OF DISTRESS. CALL LIGHT IS WITHIN REACH.
--- NOTE | 2019-02-13 03:20 | NUR ---
PT IS SLEEPING COMFORTABLY IN BED. NO S/S OF DISTRESS. CALL LIGHT IS WITHIN REACH.
--- NOTE | 2019-02-13 05:00 | NUR ---
PATIENT WAS CLEANED AND REPOSITION. PT UNABLE TO GIVE UA DURING MY SHIFT. PT WITH OLIGURIA. PT VERBALIZED UNDERSTANDING ABOUT GIVING UA. SPECIMEN CUP IS AT BEDSIDE.
[2019-02-13 07:09] LABS: ANION GAP 14.4 (8-16); BASOPHILS # (AUTO) 0.2 K/uL (0.00-0.22); BASOPHILS % (AUTO) 0.7 % (0.0-2.0); CARBON DIOXIDE 25.6 mmol/L (21-32); CHLORIDE 101 mmol/L (98-107); EOSINOPHILS # (AUTO) 0.4 K/uL (0-0.4); EOSINOPHILS % (AUTO) 1.7 % (0.0-4.0); GLUCOSE 87 mg/dL (74-106); HEMATOCRIT 31.7 % (36-48); HEMOGLOBIN 10.6 g/dL (12.0-16.0); LYMPHOCYTES # (AUTO) 0.7 K/uL (2.5-16.5); MEAN CORPUSCULAR HEMOGLOBIN 33 pg (27-31); MEAN CORPUSCULAR HGB CONC 33 g/dL (33-37); MEAN CORPUSCULAR VOLUME 99.4 fL (80-94); MONOCYTES # (AUTO) 1.9 K/uL (0.8-1.0); MONOCYTES % (AUTO) 8.6 % (1.7-9.3); PLATELET COUNT (AUTO) 106 K/uL (140-450); RED BLOOD CELL COUNT(AUTO) 3.19 MIL/uL (4.20-5.40); RED CELL DISTRIBUTION WIDTH 20.8 % (11.6-13.7); SODIUM SERUM 137 mmol/L (136-145); UREA NITROGEN, BLOOD 38 mg/dL (7-18); WHITE BLOOD COUNT (AUTO) 22.1 K/uL (4.8-10.8)
[2019-02-13 07:16] LABS: MAGNESIUM 2.4 mg/dL (1.8-2.4); PHOSPHORUS 3.1 mg/dL (2.5-4.9)
[2019-02-13 07:22] LABS: CREATININE 5.6 mg/dL (0.6-1.3)
--- NOTE | 2019-02-13 07:27 | NUR ---
GAVE BEDSIDE REPORT TO DAY SHIFT RN. PT ENDORSED IN STABLE CONDITION.
--- NOTE | 2019-02-13 07:28 | NUR ---
RECEIVED REPORT FROM TELEPHONE WORKER NURSE. PT AAOX4, LYING IN BED. LUNG SOUNDS CLEAR THROUGHOUT. IV ON RT HAND 24 GA ON SALINE LOCK. DRESSING CLEAN, INTACT AND DRY. STOMACH IS SOFT AND ROUND, BOWEL SOUNDS AUDIBLE UPON AUSCULTATION, LBM 02/12. LT AV SHUNT, THRILL IS PALPABLE. LT LEG DRESSING IS CLEAN, DRY AND INTACT, NO BLEEDING NOTED. NO EDEMA TO EXTREMITIES. SKIN COLOR IS APPROPRIATE TO ETHNICITY, WARM TO TOUCH. REVIEWED PLAN OF CARE WITH PT. PT VERBALIZED UNDERSTANDING. PT ON FALL PRECAUTIONS, SAFETY MEASURES IN PLACE. BED ON LOW POSITION, CALL LIGHT WITHIN REACH. WILL CONTINUE TO MONITOR. Addendum: 02/13/19 at 1746 by Maryjo Rodriguez RN CORRECTION: PT AAOX2, REQUIRES REDIRECTION.
[2019-02-13 08:00] VITALS: BP 108/52
[2019-02-13] MEDS: CARVEDILOL 6.25 MG TAB PO SCH ×2 (08:00→17:00)
--- NOTE | 2019-02-13 08:10 | NUR ---
CALL DR. MORELAND'S OFFICE, SPOKE WITH CATHERINE TO NOTIFY CRITICAL LAB CREATININE 5.6 AND ASKED FOR AN ORDER FOR DIALYSIS TODAY. CALL BACK NUMBER WAS PROVIDED.
--- NOTE | 2019-02-13 08:31 | NUR ---
RECEIVED CALL FROM PHARMACY, TAMIKA DUCKWORTH NOTIFY PHARMACY POST DIALYSIS TO ORDER RANDOM VANCO TROUGH.
--- NOTE | 2019-02-13 08:35 | NUR ---
RECEIVED CALL FROM RADIOLOGY, PER JONAS THEY NEED CONFIRMATION FROM DR. WALKER FOR WBC SCAN TO BE DONE IN [facility]. WILL NOTIFY DR. WALKER.
--- NOTE | 2019-02-13 08:50 | NUR ---
PT AMBULATING IN HALLWAY WITH DEA PEREZ.
--- NOTE | 2019-02-13 08:52 | NUR ---
RECEIVED CALL FROM DR. WALKER, VERIFIED WBC SCAN TEST FOR SUNDAY TO BE PLACED BY RADIOLOGY.
[2019-02-13] MEDS: METOLAZONE 2.5 MG TAB PO SCH (09:00)
--- NOTE | 2019-02-13 09:00 | NUR ---
CARVEDILOL AND METOLAZONE HELD, PT WILL HAVE DIALYSIS TODAY.
--- NOTE | 2019-02-13 09:11 | NUR ---
RECEIVED CALL FROM DIALYSIS NURSE, TAMIKA CATALAN PT IS SCHEDULED TO HAVE DIALYSIS AT 1700 TODAY.
--- NOTE | 2019-02-13 09:13 | NUR ---
PER GUCCI FROM PHARMACY, PT'S VANCO TROUGH IS ORDERED FOR TOMORROW MORNING.
[2019-02-13] MEDS: VIT-B COMP/VIT-C/FOLIC ACID 1 TAB PO SCH (09:22)
[2019-02-13] MEDS: FAMOTIDINE 20 MG TAB PO SCH (09:23)
[2019-02-13] MEDS: GABAPENTIN 100 MG CAP PO SCH (09:23)
[2019-02-13] MEDS: VITAMIN D 400 IU TAB PO SCH (09:23)
[2019-02-13] MEDS: DOCUSATE SODIUM 100 MG GELCAP PO SCH ×2 (09:23→20:27)
[2019-02-13] MEDS: LACTOBACILLUS RHAMNOSUS GG 1 EACH CAP PO SCH (09:23)
[2019-02-13] MEDS: CALCIUM ACETATE 667 MG TAB PO SCH ×3 (09:23→16:59)
--- NOTE | 2019-02-13 09:38 | NUR ---
PER KIESHA FROM RADIOLOGY, PT WILL NEED PICC/CENTRAL/CUT DOWN LINE TOMORROW PRIOR TO WBC SCAN.
--- NOTE | 2019-02-13 09:55 | NUR ---
PER GUCCI FROM PHARMACY, PT HAS TO BE OFF OF ABX FOR 24HRS D/T WBC SCAN SCHEDULE FOR TOMORROW.
--- NOTE | 2019-02-13 10:48 | NUR ---
DIFLUCAN HELD AT THIS TIME. PT HAS TO BE OFF OF ABX FOR 24HRS D/T WBC SCAN SCHEDULED FOR TOMORROW.
--- NOTE | 2019-02-13 11:01 | NUR ---
I RECEIVED A CALL FROM [facility] THAT WBC SCAN IS SCHEDULE FOR TOMORROW AND PATIENT NEEDS CENTRAL LINE OR PICC LINE AND NO ABX FOR 24HRS . I CALLED [facility] [phone] NUCLEAR MED SPOKE WITH DARIEN CLARIFIED THAT WBC SCAN IS SCHEDULE FOR SUNDAY . PER DARIEN NO NEED FOR PICC OR CENTRAL LINE BUT PATIENT HAS TO BE OFF OF ABX FOR 24HRS . NOTIFIED KATY CHARGE NURSE AND TU PRIMARY NURSE TO HOLD ANTIBIOTICS FOR 24 HRS.
[2019-02-13] MEDS: FLUCONAZOLE 200 MG/NS PREMIX 100 ML IV SCH (11:48)
--- NOTE | 2019-02-13 12:45 | NUR ---
Dialysis nurse arrived at bedside, states she received hemodialysis order from Dr. Fierro. Order noted & carried out. Pt in no distress at this time.
[2019-02-13] MEDS: GAUZE TP SCH (13:28)
[2019-02-13] MEDS: ALBUTEROL SULFATE/IPRATROPIU 3 ML SOL IH PRN (14:06)
[2019-02-13 16:00] VITALS: BP 100/48
--- NOTE | 2019-02-13 16:03 | NUR ---
Informed by [facility] dialysis nurse that hemodialysis is completed with 1.2L output. Pt in bed, awake, no signs of distress, no c/o discomfort. Left upper arm AV shunt dressing clean, dry, & intact. Call light within reach.
--- NOTE | 2019-02-13 19:30 | NUR ---
PT ENDORSED TO MANAGER GRAPHIC NURSE FOR CONTINUITY OF CARE. NO DISTRESS NOTED AT THIS TIME.
--- NOTE | 2019-02-13 19:30 | NUR ---
RECEIVED PT ON BED WATCHING TV, AAOX2, NEEDS FREQUENT RE-ORIENTATION, ABLE TO MAKE NEEDS KNOWN, DENIES ANY PAIN, NO SOB NOTED, DRESSING TO LEFT LEG DRY AND INTACT, LEFT ARM AV SHUNT DRESSING DRY AND INTACT, SAFETY MEASURES IN PLACE, SIDE RAILS UP AND BED ALARM ON, CALL LIGHT WITHIN REACH.
[2019-02-13] MEDS: ATORVASTATIN 20 MG TAB PO SCH (20:27)
--- NOTE | 2019-02-13 22:30 | NUR ---
PT INCONTINENT OF URINE, UNABLE TO COLLECT SPECIMEN, CLEANED AND REPOSITIONED, MONITORED CLOSELY.
[2019-02-14] VITALS: BP 104/53
--- NOTE | 2019-02-14 | NUR ---
PT SLEEPING, EASILY AROUSABLE, VITAL SIGNS STABLE, DENIES ANY PAIN, NO SOB NOTED, SIDE RAILS UP AND BED ALARM ON, CONTINUE TO MONITOR CLOSELY.
--- NOTE | 2019-02-14 04:30 | NUR ---
ROUNDS MADE, PT SLEEPING, NO SIGNS OF DISTRESS, MONITORED CLOSELY.
--- NOTE | 2019-02-14 06:00 | NUR ---
SEEN PT SLEEPING, NO SIGNS OF DISTRESS, LEFT LEG DRESSING DRY AND INTACT, SIDE RAILS UP AND BED ALARM ON, MONITORED CLOSELY.
[2019-02-14 06:20] LABS: ALBUMIN 2.5 g/dL (3.4-5.0); ANION GAP 11.9 (8-16); ASPARTATE AMINOTRANSFERASE 41 U/L (15-37); CARBON DIOXIDE 28.5 mmol/L (21-32); CHLORIDE 101 mmol/L (98-107); GLUCOSE 87 mg/dL (74-106); PHOSPHORUS 2.7 mg/dL (2.5-4.9); POTASSIUM 3.4 mmol/L (3.5-5.1); SODIUM SERUM 138 mmol/L (136-145); TOTAL BILIRUBIN 0.7 mg/dL (0.0-1.0); UREA NITROGEN, BLOOD 22 mg/dL (7-18)
[2019-02-14 06:25] LABS: CREATININE 4.2 mg/dL (0.6-1.3)
[2019-02-14 06:35] LABS: BASOPHILS # (AUTO) 0.1 K/uL (0.00-0.22); BASOPHILS % (AUTO) 0.5 % (0.0-2.0); EOSINOPHILS # (AUTO) 0.4 K/uL (0-0.4); EOSINOPHILS % (AUTO) 2.1 % (0.0-4.0); HEMATOCRIT 32.3 % (36-48); HEMOGLOBIN 10.7 g/dL (12.0-16.0); LYMPHOCYTES # (AUTO) 0.8 K/uL (2.5-16.5); LYMPHOCYTES % (AUTO) 3.9 % (20.5-51.1); MEAN CORPUSCULAR HEMOGLOBIN 33 pg (27-31); MEAN CORPUSCULAR HGB CONC 33 g/dL (33-37); MONOCYTES # (AUTO) 2.1 K/uL (0.8-1.0); MONOCYTES % (AUTO) 9.9 % (1.7-9.3); NEUTROPHILS # (AUTO) 17.9 K/uL (1.8-7.7); NEUTROPHILS % (AUTO) 83.6 % (42.2-75.2); PLATELET COUNT (AUTO) 122 K/uL (140-450); RED BLOOD CELL COUNT(AUTO) 3.23 MIL/uL (4.20-5.40); WHITE BLOOD COUNT (AUTO) 21.4 K/uL (4.8-10.8)
--- NOTE | 2019-02-14 07:17 | NUR ---
RECEIVED BEDSIDE REPORT FROM FABRICIO ALEX. PT STABLE, AWAKE, ALERT AND ORIENTED X2. DENIES PAIN OR SOB. NO SIGNS OF DISTRESS NOTED. NO REDNESS, SWELLING, OR INFLAMMATION NOTED ON IV SITE. LEFT UA AV SHUNT INTACT, DRESSING IN PLACE. CALL [place] WITHIN REACH. BED IN LOWEST POSITION, BED ALARM ON. SAFETY MEASURES IN PLACE. PLAN OF CARE REVIEWED.
--- NOTE | 2019-02-14 07:18 | NUR ---
PT EASILY AROUSABLE, NO SIGNS OF DISTRESS, REPORT GIVEN TO FABRICIO MONTALVO FOR CONTINUITY OF CARE.
[2019-02-14 08:00] VITALS: BP 134/68
[2019-02-14] MEDS: CALCIUM ACETATE 667 MG TAB PO SCH ×3 (08:53→16:50)
[2019-02-14] MEDS: METOLAZONE 2.5 MG TAB PO SCH (08:53)
[2019-02-14] MEDS: VITAMIN D 400 IU TAB PO SCH (08:54)
[2019-02-14] MEDS: CARVEDILOL 6.25 MG TAB PO SCH ×2 (08:54→16:51)
[2019-02-14] MEDS: VIT-B COMP/VIT-C/FOLIC ACID 1 TAB PO SCH (08:54)
[2019-02-14] MEDS: LACTOBACILLUS RHAMNOSUS GG 1 EACH CAP PO SCH (08:54)
[2019-02-14] MEDS: DOCUSATE SODIUM 100 MG GELCAP PO SCH ×2 (08:55→21:00)
[2019-02-14] MEDS: GABAPENTIN 100 MG CAP PO SCH (08:55)
--- NOTE | 2019-02-14 08:58 | NUR ---
ADMINISTERED SCHEDULED MEDICATIONS, PT TOLERATED WELL. NO OTHER NEEDS AT THIS TIME.
--- NOTE | 2019-02-14 09:03 | NUR ---
AZUL AT THE BEDSIDE TO TAKE BLOOD DRAW FOR INDIUM SCAN.
--- NOTE | 2019-02-14 10:41 | NUR ---
ADMINISTERED PRN TYLENOL FOR 3/10 LEFT LOWER LEG PAIN. WOUND ASSESSMENT AND WOUND CARE DONE. PICTURES TAKEN. WOUND DRESSING CHANGED. PT TOLERATED WELL. WILL CONTINUE TO MONITOR.
--- NOTE | 2019-02-14 11:00 | NUR ---
WOUND CARE RE-EVALUATION NOTE: LEFT LOWER LEG S/P I&D HEMATOMA SURGICAL WOUND, 4X0.5X0.3 CM WITH UNDERMINING BETWEEN 7-11 0�CLOCK, WOUND BED DARK RED TISSUE, MODERATE AMOUNT OF SEROSANGUINEOUS DRAINAGE, NO ODOR, ANTONY WOUND SKIN INTACT, NO ERYTHEMA, NO EDEMA, MILD PAIN WITH TYLENOL GIVEN. WILL CONTINUE CURRENT TREATMENT PLAN.
--- NOTE | 2019-02-14 11:57 | NUR ---
ADMINISTERED SCHEDULED PHOSLO, PT TOLERATED WELL. NO OTHER NEEDS AT THIS TIME.
[2019-02-14] MEDS: FLUCONAZOLE 200 MG/NS PREMIX 100 ML IV SCH (12:00)
[2019-02-14] MEDS: GAUZE TP SCH (12:00)
--- NOTE | 2019-02-14 12:01 | NUR ---
SCHEDULED DIFLUCAN HELD DUE TO PT IS SCHEDULED FOR [place] INDIUM WBC SCAN TODAY. WILL CONTINUE TO MONITOR.
--- NOTE | 2019-02-14 12:47 | NUR ---
MADE DR WALKER AWARE OF PT'S K+ 3.4, RECEIVED TELEPHONE ORDER FOR K-DUR 20MEQ PO ONCE. WILL PUT IN ORDER.
[2019-02-14] MEDS ORDERED: POTASSIUM CHLORIDE 10 MEQ TABER PO SCH (13:00)
--- NOTE | 2019-02-14 14:50 | NUR ---
PT STABLE, AWAKE, AND ALERT, TALKING TO FAMILY AT THE BEDSIDE. NO NEEDS AT THIS TIME.
[2019-02-14 16:00] VITALS: BP 102/52
--- NOTE | 2019-02-14 16:51 | NUR ---
ADMINISTERED SCHEDULED PHOSLO, HELD SCHEDULED COREG FOR BP 102/52. PT TOLERATED WELL. NO OTHER NEEDS AT THIS TIME.
--- NOTE | 2019-02-14 17:20 | NUR ---
PT STABLE, SLEEPING, BUT EASILY AROUSABLE. NO SIGNS OF DISTRESS NOTED.
--- NOTE | 2019-02-14 19:10 | NUR ---
ENDORSED PT TO FABRICIO VILLARREAL FOR CONTINUITY OF CARE. PT STABLE.
--- NOTE | 2019-02-14 19:10 | NUR ---
RECEIVED ENDORSEMENT FORM PEGGY ANDRADE AT BEDSIDE FOR CONTINUITY OF CARE, PT IN STABLE CONDITION.
--- NOTE | 2019-02-14 20:00 | NUR ---
SPOKE WITH PRIMARY MD WALKER REGARDING WEATHER TO HOLD THE ORDERED ROCEPHIN DUE TO CONTRAST DYE FOR PENDING INDIUM SCAN. MD DENISE Frost, SAID IT CAN BE HELD AT THIS TIME. DR. MORELAND WAS CALLED FOR DIALYSIS ORDERED, PT HD IS DUE ,. JAYLYN TELLES WAS CALLED REGARDING PENDING DIALYSIS ORDER.
--- NOTE | 2019-02-14 21:00 | NUR ---
PT IN BED NO S/S OF PAIN OR DISTRESS NOTED V/S FOLLOWS T 98.6 P 78 R 18 B/P 119/63 02 95% ON ROOM AIR.
--- NOTE | 2019-02-14 21:30 | NUR ---
PT GIVEN ORDERED LIPITOR, AND ROCEPHIN WAS HELD DUE TO INDIUM SCAN. PT DECLINED COLACE, SAYING SHE HAD 2 BM TODAY. RISKS AND BENEFITS DISCUSSED, PT CONTINUED TO DECLINE MEDICATION. SHE ALSO DENIES ANY PAIN, AND HAS NO S/S OF DISTRESS NOTED. PT IN BED, WITH ALL FALLS PRECAUTIONS IN PLACE.
[2019-02-14] MEDS: ATORVASTATIN 20 MG TAB PO SCH (22:14)
[2019-02-15] VITALS: BP 103/55
--- NOTE | 2019-02-15 | NUR ---
PT IN BED ASLEEP BUT AROUSABLE TO NAME V/S FOLLOWS T 97.5 P 80 R 18 B/P 103/55, NO S/S OF PAIN OR DISTRESS NOTED, ALL FALLS PRECAUTIONS IN PLACE.
--- NOTE | 2019-02-15 02:00 | NUR ---
PT IN BED SLEEPING NO S/S OF PAIN OR DISTRESS NOTED. ALL FALLS PRECAUTIONS IN PLACE.
--- NOTE | 2019-02-15 04:30 | NUR ---
PT IN BED AOX2-3. PT SITTING UP IN BED PRAYING HER ROSARIES, NO S/S OF PAIN OR DISTRESS NOTED. V/S FOLLOWS T 98.5 P 73 R 18 B/P 108/54 02 91% ON ROOM AIR. ALL FALLS PRECAUTIONS IN PLACE.
[2019-02-15 07:05] LABS: BASOPHILS # (AUTO) 0.2 K/uL (0.00-0.22); BASOPHILS % (AUTO) 1.2 % (0.0-2.0); EOSINOPHILS # (AUTO) 0.6 K/uL (0-0.4); EOSINOPHILS % (AUTO) 2.7 % (0.0-4.0); HEMATOCRIT 32.1 % (36-48); HEMOGLOBIN 10.8 g/dL (12.0-16.0); LYMPHOCYTES # (AUTO) 0.8 K/uL (2.5-16.5); MEAN CORPUSCULAR HEMOGLOBIN 33 pg (27-31); MEAN CORPUSCULAR HGB CONC 34 g/dL (33-37); MEAN CORPUSCULAR VOLUME 99.1 fL (80-94); MONOCYTES # (AUTO) 1.8 K/uL (0.8-1.0); MONOCYTES % (AUTO) 8.5 % (1.7-9.3); NEUTROPHILS # (AUTO) 17.7 K/uL (1.8-7.7); NEUTROPHILS % (AUTO) 83.6 % (42.2-75.2); PLATELET COUNT (AUTO) 127 K/uL (140-450); RED BLOOD CELL COUNT(AUTO) 3.24 MIL/uL (4.20-5.40); RED CELL DISTRIBUTION WIDTH 21.3 % (11.6-13.7); WHITE BLOOD COUNT (AUTO) 21.2 K/uL (4.8-10.8)
--- NOTE | 2019-02-15 07:30 | NUR ---
RECEIVED BEDSIDE REPORT FROM FABRICIO VILLARREAL. PT STABLE, AWAKE, ALERT AND ORIENTED X2. DENIES PAIN OR SOB. NO SIGNS OF DISTRESS NOTED. NO REDNESS, SWELLING, OR INFLAMMATION NOTED ON IV SITE. LEFT UA AV SHUNT INTACT, DRESSING IN PLACE. CALL [place] WITHIN REACH. BED IN LOWEST POSITION, BED ALARM ON. SAFETY MEASURES IN PLACE. PLAN OF CARE REVIEWED.
--- NOTE | 2019-02-15 07:36 | NUR ---
PLAN OF CARE ENDORSE TO DAYSHIFT AT BEDSIDE, PT IN STABLE CONDITION.
[2019-02-15 07:44] LABS: ANION GAP 15.2 (8-16); CARBON DIOXIDE 25.6 mmol/L (21-32); CHLORIDE 100 mmol/L (98-107); GLUCOSE 83 mg/dL (74-106); POTASSIUM 3.8 mmol/L (3.5-5.1); SODIUM SERUM 137 mmol/L (136-145); UREA NITROGEN, BLOOD 32 mg/dL (7-18)
[2019-02-15 07:53] LABS: PHOSPHORUS 2.7 mg/dL (2.5-4.9)
[2019-02-15 08:00] VITALS: BP 114/63
[2019-02-15] MEDS: CARVEDILOL 6.25 MG TAB PO SCH ×2 (08:00→17:21)
--- NOTE | 2019-02-15 08:10 | NUR ---
CONCRETE BATCH PLANT OPERATOR KIM AT THE BEDSIDE.
[2019-02-15] MEDS: METOLAZONE 2.5 MG TAB PO SCH (09:00)
[2019-02-15] MEDS: CALCIUM ACETATE 667 MG TAB PO SCH ×3 (10:10→17:21)
[2019-02-15] MEDS: VIT-B COMP/VIT-C/FOLIC ACID 1 TAB PO SCH (10:10)
[2019-02-15] MEDS: GABAPENTIN 100 MG CAP PO SCH (10:10)
[2019-02-15] MEDS: LACTOBACILLUS RHAMNOSUS GG 1 EACH CAP PO SCH (10:11)
[2019-02-15] MEDS: VITAMIN D 400 IU TAB PO SCH (10:12)
[2019-02-15] MEDS: FAMOTIDINE 20 MG TAB PO SCH (10:13)
[2019-02-15] MEDS: DOCUSATE SODIUM 100 MG GELCAP PO SCH ×2 (10:13→22:31)
--- NOTE | 2019-02-15 10:17 | NUR ---
HELD SCHEDULED BP MEDS DUE TO DIALYSIS, ADMINISTERED ALL OTHER SCHEDULED MEDICATIONS, PT TOLERATED WELL. NO OTHER NEEDS AT THIS TIME. FAMILY AT THE BEDSIDE.
--- NOTE | 2019-02-15 11:40 | NUR ---
HEMODIALYSIS OUTPUT 1,500 ML.
--- NOTE | 2019-02-15 12:10 | NUR ---
PT STABLE, RESTING IN BED.
[2019-02-15] MEDS ORDERED: FLUCONAZOLE 200 MG/NS PREMIX 100 ML IV SCH (13:00)
--- NOTE | 2019-02-15 13:08 | NUR ---
AZUL FROM [facility] AT THE BEDSIDE TO DO INDIUM SCAN.
[2019-02-15] MEDS: PIPER/TAZO 2.25GM/D5W PREMIX 50 ML IV SCH ×2 (13:52→22:31)
[2019-02-15] MEDS: GAUZE TP SCH (13:52)
--- NOTE | 2019-02-15 13:54 | NUR ---
ADMINISTERED SCHEDULED MEDICATIONS, PT TOLERATED WELL. NO OTHER NEEDS AT THIS TIME.
--- NOTE | 2019-02-15 14:00 | NUR ---
INFORMED HOSSEIN FROM PHARMACY THAT PT IS DONE WITH INDIUM SCAN. PER HOSSEIN, HE WILL INFORM PHARMACIST.
--- NOTE | 2019-02-15 15:40 | NUR ---
LINENS AND GOWN CHANGED, PT STABLE.
[2019-02-15 16:00] VITALS: BP 113/71
--- NOTE | 2019-02-15 16:10 | NUR ---
VITAL SIGNS TAKEN, PT STABLE. NO OTHER NEEDS AT THIS TIME.
--- NOTE | 2019-02-15 16:40 | NUR ---
02/15/19 RD FOLLOW UP COMPLETED PLEASE REFER TO NUTRITION PROGRESS NOTE UNDER CARE ACTIVITY FOR ESTIMATED NUTRITION NEEDS. RD RECOMMENDATIONS: 1. CONTINUE RENAL DIET TOLERATED. 2. RD TO FOLLOW-UP 7 DAYS, LOW RISK JONAS JARVIS, RD
--- NOTE | 2019-02-15 17:23 | NUR ---
BP CHECKED, 119/60. ADMINISTERED SCHEDULED MEDICATIONS, PT TOLERATED WELL. NO OTHER NEEDS AT THIS TIME.
--- NOTE | 2019-02-15 19:29 | NUR ---
RECIEVED PT. AAOX4 ,NID, IV SITE INTACT AND PATENT , V/S WNL , NO COMPLAIN AT THIS TIME . AV FISTULA ON LEFT ARM INTACT .WITH DRESSING DRY AND INTACT ON THE LEFT LEG , BED IN LOW POSITION , SIDERAILS UP X2 , BED ALARM ON , CALL LIGHT WITHIN REACH , POC DISCUSSED AND VERBALIZE UNDERSTANDING ,WILL CONTINUE TO MONITOR.
--- NOTE | 2019-02-15 19:29 | NUR ---
ENDORSED PT TO FABRICIO VAZQUEZ FOR CONTINUITY OF CARE. PT STABLE.
--- NOTE | 2019-02-15 22:00 | NUR ---
MADE ROUNDS , PT. RESTING ON BED , NO COMPLAIN MADE AT THIS TIME , CALL LIGHT WITH IN REACH.
[2019-02-15] MEDS: ATORVASTATIN 20 MG TAB PO SCH (22:32)
[2019-02-16] VITALS: BP 113/75
--- NOTE | 2019-02-16 | NUR ---
MADE ROUNDS , AWAKE , RESTING ON BED , NO SIGNS OF DISTRESS NOTED AT THIS TIME . V/S WNL , WILL CONTINUE TO MONITOR , CALL LIGHT WITHIN REACH.
--- NOTE | 2019-02-16 02:00 | NUR ---
MADE ROUNDS. PT. SLEEPING , NO SIGNS OF DISTRESS NOTED , CALL LIGHT WITHIN REACH.
--- NOTE | 2019-02-16 02:00 | NUR ---
MADE ROUNDS . PT. RESTING ON BED , NO SIGNS OF DISTRESS NOTED ,WILL CONTINUE TO MONITOR .
--- NOTE | 2019-02-16 04:00 | NUR ---
MADE ROUNDS , NO FURTHER COMPLAIN MADE AT THIS TIME ,CALL LIGHT WITHIN REACH.
[2019-02-16] MEDS: PIPER/TAZO 2.25GM/D5W PREMIX 50 ML IV SCH ×3 (04:30→20:52)
--- NOTE | 2019-02-16 06:00 | NUR ---
PT. SLEEPING , CALL LIGHT WITHIN REACH ,NO BM FOR THE SHIFT , STILL FOR STOOL COLLECTION.
--- NOTE | 2019-02-16 07:05 | NUR ---
ENDORSED TO AM SHIFT NURSE FOR CONTINUITY OF CARE.
[2019-02-16 07:16] LABS: CARBON DIOXIDE 27.6 mmol/L (21-32); CHLORIDE 99 mmol/L (98-107); GLUCOSE 88 mg/dL (74-106); POTASSIUM 3.6 mmol/L (3.5-5.1); SODIUM SERUM 136 mmol/L (136-145); UREA NITROGEN, BLOOD 22 mg/dL (7-18)
[2019-02-16 07:19] LABS: HEMATOCRIT 30.6 % (36-48); HEMOGLOBIN 10.2 g/dL (12.0-16.0); MEAN CORPUSCULAR HEMOGLOBIN 33 pg (27-31); MEAN CORPUSCULAR HGB CONC 33 g/dL (33-37); MEAN CORPUSCULAR VOLUME 99.6 fL (80-94); PLATELET COUNT (AUTO) 106 K/uL (140-450); RED BLOOD CELL COUNT(AUTO) 3.08 MIL/uL (4.20-5.40); RED CELL DISTRIBUTION WIDTH 20.8 % (11.6-13.7); WHITE BLOOD COUNT (AUTO) 18.7 K/uL (4.8-10.8)
[2019-02-16 07:26] LABS: PHOSPHORUS 2.4 mg/dL (2.5-4.9)
[2019-02-16 07:40] LABS: MAGNESIUM 1.8 mg/dL (1.8-2.4)
--- NOTE | 2019-02-16 07:40 | NUR ---
RECEIVED BED SIDE REPORT FROM DIGITAL PRODUCER FABRICIO VAZQUEZ. PT AWAKE, AUSTRIAN SPEAKING, SAM BANDAGE ON LEFT LEG. PT DENIES PAIN. R WRIST SALINE LOCK. BED ALARM ON, CALL LIGHT WITHIN REACH, WILL CONTINUE TO MONITOR
[2019-02-16 07:46] LABS: CREATININE 4.2 mg/dL (0.6-1.3)
[2019-02-16 07:58] LABS: BASOPHILS % (MANUAL) 0 % (0-2); EOSINOPHILS % (MANUAL) 5 % (0-4); LYMPHOCYTES % (MANUAL) 4 % (20-46); MONOCYTES % (MANUAL) 8 % (5-12)
[2019-02-16 08:00] VITALS: BP 113/56
--- NOTE | 2019-02-16 08:30 | NUR ---
ASSISTED PT TO BEDSIDE COMMODE. PT HAD SOFT FORMED BM. PT ASSISTED BACK TO BED. BED ALARM ON, CALL LIGHT WITHIN REACH, WILL CONTINUE TO MONITOR
[2019-02-16] MEDS: DOCUSATE SODIUM 100 MG GELCAP PO SCH ×2 (08:35→20:52)
[2019-02-16] MEDS: METOLAZONE 2.5 MG TAB PO SCH (08:35)
[2019-02-16] MEDS: CALCIUM ACETATE 667 MG TAB PO SCH ×3 (08:35→17:26)
[2019-02-16] MEDS: GABAPENTIN 100 MG CAP PO SCH (08:35)
[2019-02-16] MEDS: VIT-B COMP/VIT-C/FOLIC ACID 1 TAB PO SCH (08:36)
[2019-02-16] MEDS: LACTOBACILLUS RHAMNOSUS GG 1 EACH CAP PO SCH (08:37)
[2019-02-16] MEDS: CARVEDILOL 6.25 MG TAB PO SCH ×2 (08:37→17:00)
[2019-02-16] MEDS: VITAMIN D 400 IU TAB PO SCH (08:37)
[2019-02-16] MEDS ORDERED: SODIUM PHOSPHATE 15 MMOLE in NACL 0.9% 250 ML IV SCH (10:00)
[2019-02-16 12:21] VITALS: BP 113/56
--- NOTE | 2019-02-16 12:30 | NUR ---
JOVANA HOLLIS. PT SLEEPING COMFORTABLY, CALL LIGHT WITHIN REACH, BED LOW, WILL CONTINUE TO MONITOR
[2019-02-16] MEDS: GAUZE TP SCH (13:14)
[2019-02-16 16:00] VITALS: BP 108/56
--- NOTE | 2019-02-16 16:35 | NUR ---
PT AWAKE AND IS IN STABLE CONDITION. STUDENTS ARE TAKING VS NOW. ZOSYN COMPLETED. WILL CONTINUE TO MONITOR.
--- NOTE | 2019-02-16 16:38 | NUR ---
NO C.DIFF TOXIN SAMPLE TAKEN. PRODUCTION CONTROL SUPERVISOR THREW OUT BM EARLIER IN THE MORNING. POSTED SIGN ON COMMODE FOR FUTURE REFERENCE. PT HAS NO DESIRE TO USE BATHROOM
--- NOTE | 2019-02-16 19:29 | NUR ---
ENDORSED PT TO FURNACE ROOM SUPERVISOR RN DARWIN. PT IN STABLE CONDITION
--- NOTE | 2019-02-16 19:30 | NUR ---
RECEIVED PT FROM CAMMY RN PT SLOVENIAN SPEAKER AAOX2 COOPERATIVE TO FOLLOW COMMANDS, IV ON RT HAND INFUSING WELL, ON LEFT UA AV SHUNT DIALYSIS ACCESS, NOT DISTRESS NOTED LEFT LE DRESSING DRY AND INTACT.
[2019-02-16 20:00] VITALS: BP 94/60
--- NOTE | 2019-02-16 20:00 | NUR ---
DR DEL ROSARIO IS HERE AND SEE THE PT, LEFT LE , DRESSING WAS REMOVED FOR S/P I AND D ABSCESS AND HEALING ON PROGRESS DRY CLEAN WOUND
[2019-02-16] MEDS: ATORVASTATIN 20 MG TAB PO SCH (20:53)
--- NOTE | 2019-02-16 23:00 | NUR ---
PT REPOSITIONED Q2H NOT DISTRESS NOTED LINEN CHANGED, , IV INFUSING WELL ON RT HAND PT DENIES ANY PAIN
[2019-02-17] VITALS: BP 106/51
--- NOTE | 2019-02-17 02:00 | NUR ---
PT AWAKE NOT FEVER, NOT PAIN WATCHING TV
--- NOTE | 2019-02-17 04:05 | NUR ---
SPONGE BATH GIVEN LINEN CHANGED PT COOPERATIVE TO TURN, VERBALIZED TO FEELS BETTER
[2019-02-17] MEDS: PIPER/TAZO 2.25GM/D5W PREMIX 50 ML IV SCH ×3 (04:52→20:26)
--- NOTE | 2019-02-17 05:46 | NUR ---
PT SLEEPING WELL NOT SIGNS OF DISTRESS NOTED IV TKO ON RT HAND INFUSING WELL, NOT BM YET
--- NOTE | 2019-02-17 06:20 | NUR ---
PT WILL BE ENDORSED TO DAY SHIFT NURSE FOR CONTINUE OF CARE
[2019-02-17 06:43] LABS: ANION GAP 15.2 (8-16); CARBON DIOXIDE 27.4 mmol/L (21-32); CHLORIDE 98 mmol/L (98-107); GLUCOSE 86 mg/dL (74-106); POTASSIUM 3.6 mmol/L (3.5-5.1); SODIUM SERUM 137 mmol/L (136-145); UREA NITROGEN, BLOOD 28 mg/dL (7-18)
[2019-02-17 06:47] LABS: CREATININE 5.2 mg/dL (0.6-1.3)
[2019-02-17 06:50] LABS: MAGNESIUM 1.8 mg/dL (1.8-2.4); PHOSPHORUS 4.1 mg/dL (2.5-4.9)
[2019-02-17 06:55] LABS: BASOPHILS # (AUTO) 0.2 K/uL (0.00-0.22); BASOPHILS % (AUTO) 0.9 % (0.0-2.0); EOSINOPHILS # (AUTO) 0.6 K/uL (0-0.4); EOSINOPHILS % (AUTO) 3.1 % (0.0-4.0); HEMATOCRIT 31.5 % (36-48); HEMOGLOBIN 10.6 g/dL (12.0-16.0); LYMPHOCYTES # (AUTO) 0.8 K/uL (2.5-16.5); LYMPHOCYTES % (AUTO) 4.4 % (20.5-51.1); MEAN CORPUSCULAR HEMOGLOBIN 33 pg (27-31); MEAN CORPUSCULAR HGB CONC 34 g/dL (33-37); MEAN CORPUSCULAR VOLUME 99.5 fL (80-94); MONOCYTES # (AUTO) 2.5 K/uL (0.8-1.0); MONOCYTES % (AUTO) 13.5 % (1.7-9.3); NEUTROPHILS # (AUTO) 14.3 K/uL (1.8-7.7); NEUTROPHILS % (AUTO) 78.1 % (42.2-75.2); PLATELET COUNT (AUTO) 100 K/uL (140-450); RED BLOOD CELL COUNT(AUTO) 3.17 MIL/uL (4.20-5.40); RED CELL DISTRIBUTION WIDTH 20.9 % (11.6-13.7); WHITE BLOOD COUNT (AUTO) 18.4 K/uL (4.8-10.8)
--- NOTE | 2019-02-17 07:10 | NUR ---
RECEIVED BED SIDE REPORT FROM CASH MANAGEMENT CLERK RN ASAEL. PT SLEEPING COMFORTABLY, IN NO RESPIRATORY DISTRESS, APPEARS IN NO PAIN. VS STABLE, C.DIFF COLLECTION STILL NEEDS TO BE COLLECTED. BEDSIDE COMMODE AT BEDSIDE. L AV FISTULA FUNCTIONING. R WRIST 25G RUNNING NS 5CC/HR. CURRENTLY WAITING FOR LTAC EVAL. CRITICAL VALUE RECEIVED AT 0647: CREATININE 5.2. PT RECEIVES HD T,TH,SAT. ON A FLUID RESTRICTION.
[2019-02-17 08:00] VITALS: BP 110/61
--- NOTE | 2019-02-17 09:12 | NUR ---
GAVE PT AM MEDS. EXPLAINED EACH MED AND S/E. PT VERBALIZED UNDERSTANDING. STILL NO BM. WILL CONTINUE TO MONITOR
--- NOTE | 2019-02-17 09:21 | NUR ---
CALLED [facility] [phone] SPOKE WITH JACKIE REGARDING LT[facility] EVAL PER JACKIE TO CONTACT [facility] ADMITTING PERSON AND TO CALL HER. CALLED [facility] AND SPOKE WITH DUANE [phone] WILL COME THIS AFTERNOON TO EVALUATE THE PATENT.
[2019-02-17] MEDS: METOLAZONE 2.5 MG TAB PO SCH (09:23)
[2019-02-17] MEDS: DOCUSATE SODIUM 100 MG GELCAP PO SCH ×2 (09:23→20:31)
[2019-02-17] MEDS: GABAPENTIN 100 MG CAP PO SCH (09:23)
[2019-02-17] MEDS: FAMOTIDINE 20 MG TAB PO SCH (09:24)
[2019-02-17] MEDS: CALCIUM ACETATE 667 MG TAB PO SCH ×3 (09:24→16:50)
[2019-02-17] MEDS: VIT-B COMP/VIT-C/FOLIC ACID 1 TAB PO SCH (09:24)
[2019-02-17] MEDS: LACTOBACILLUS RHAMNOSUS GG 1 EACH CAP PO SCH (09:24)
[2019-02-17] MEDS: VITAMIN D 400 IU TAB PO SCH (09:24)
[2019-02-17] MEDS: CARVEDILOL 6.25 MG TAB PO SCH ×2 (09:24→16:52)
--- NOTE | 2019-02-17 11:30 | NUR ---
GOT A CALL FROM [facility] WHO ASKED ME A FEW ASSESSMENT QUESTIONS. NOTIFIED ME THAT DUANE WILL COME BY IN A LITTLE BIT TO EVALUATE PT. IF PT IS ACCEPTED INTO FACILITY, THEN THEY WILL CALL BACK.
[2019-02-17] MEDS: GAUZE TP SCH (11:41)
--- NOTE | 2019-02-17 11:54 | NUR ---
DID WOUND DRESSING CHANGE ON LEFT LOWER LEG WOUND. MINIMAL SEROSANGUINEOUS DRAINAGE NOTED, MINIMAL PAIN ASSOCIATED WITH WOUND, NO EXCESS BLEEDING NOTED, DEEP RED TISSUE WITHIN INCISION. PER PT, THE WOUND IS GETTING BETTER. JOVANA HOLLIS. WILL CONTINUE TO MONITOR.
--- NOTE | 2019-02-17 13:21 | NUR ---
PER DUANE, HE TRIED CALLING SON TO GET CONSENT FOR PT TO BE TRANSFERRED TO [place].
--- NOTE | 2019-02-17 14:00 | NUR ---
SPOKE WITH PATIENT'S SON JORGE [phone] NOTIFIED HIM ABOUT [facility] PER JORGE IT WILL BE OK TO TRANSFER HIS MOM TO GO TO [facility].
[2019-02-17 16:00] VITALS: BP 106/51
--- NOTE | 2019-02-17 16:00 | NUR ---
I CALLED JACKIE GODDARD SR STATED SHE IS WAITING FROM [facility] TO REVIEW THE CAST FOR AUTHORIZATION. CALLED DUANE AT [facility] STATED HE WILL F/U
--- NOTE | 2019-02-17 16:35 | NUR ---
LEFT A MESSAGE FOR JACKIE , AND CALLED DUANE IF THERE IS AUTHORIZATION THERE IS A POSSIBILITY TO GET TO [facility] ,INSTRUCT DUANE TO CALL THE FLOOR AND PROVIDED THE FLOOR NUMBER.
--- NOTE | 2019-02-17 17:46 | NUR ---
NO C.DIFF TOXIN SAMPLE COLLECTED. PT HAD A BM IN THE COMMODE BUT URINE WAS ALSO THERE. CALLED PHARMACY TO SEE IF THEY WILL STILL ACCEPT SPECIMEN. THEY SAID [facility] WILL NOT.
--- NOTE | 2019-02-17 19:19 | NUR ---
GAVE BEDSIDE REPORT TO PRODUCTION PLANNER RN. PT IN STABLE CONDITION
--- NOTE | 2019-02-17 19:20 | NUR ---
RECEIVED BEDSIDE REPORT FROM DAY SHIFT NURSE ASHLEE RN, PT STABLE, NO DISTRESS NOTED, IV TO R WRIST 24G, PATENT INTACT, RUNNING KVO AT THIS MOMENT, PT ON ROOM AIR, NO SOB NOTED, PT DENIES ANY PAIN AT THIS MOMENT, DRESSINGS CLEAN DRY AND INTACT, AV SHUNT TO L UPPER ARM. INITIAL ASSESSMENT DONE, ALL SAFETY PRECAUTION MET, CALL LIGHT WITHIN REACH, WILL CONTINUE TO MONITOR.
[2019-02-17] MEDS: ATORVASTATIN 20 MG TAB PO SCH (20:26)
--- NOTE | 2019-02-17 20:31 | NUR ---
DUE MEDICATION ADMINISTERED, PT TOLERATED WELL, NO DISTRESS NOTED, CALL LIGHT WITHIN REACH, WILL CONTINUE TO MONITOR.
--- NOTE | 2019-02-17 23:25 | NUR ---
CHECKED ON PT, PT SLEEPING, NO DISTRESS NOTED, V/S TAKEN, WITHIN PT BASELINE, PT DENIES ANY PAIN AT THIS MOMENT, CALL LIGHT WITHIN REACH, WILL CONTINUE TO MONITOR.
[2019-02-17 23:26] VITALS: BP 97/50
--- NOTE | 2019-02-18 02:10 | NUR ---
CHECKED ON PT, PT SLEEPING, NO DISTRESS NOTED, CALL LIGHT WITHIN REACH, WILL CONTINUE TO MONITOR.
[2019-02-18] MEDS: PIPER/TAZO 2.25GM/D5W PREMIX 50 ML IV SCH ×3 (04:44→21:24)
--- NOTE | 2019-02-18 04:47 | NUR ---
DUE MEDICATION ADMINISTERED, PT TOLERATED WELL, NO DISTRESS NOTED, CALL LIGHT WITHIN REACH, WILL CONTINUE TO MONITOR.
--- NOTE | 2019-02-18 05:50 | NUR ---
PT DID A BM, BROWN, SOFT, FORMED, NOT QUALIFIED FOR C DIFF. PT RESTING ON BED, NO DISTRESS NOTED, CALL LIGHT WITHIN REACH, WILL CONTINUE TO MONITOR.
[2019-02-18 06:14] LABS: ANION GAP 16.4 (8-16); CARBON DIOXIDE 24.3 mmol/L (21-32); CHLORIDE 97 mmol/L (98-107); GLUCOSE 87 mg/dL (74-106); POTASSIUM 3.7 mmol/L (3.5-5.1); SODIUM SERUM 134 mmol/L (136-145); UREA NITROGEN, BLOOD 36 mg/dL (7-18)
[2019-02-18 06:26] LABS: MAGNESIUM 1.9 mg/dL (1.8-2.4); PHOSPHORUS 4.2 mg/dL (2.5-4.9)
[2019-02-18 06:28] LABS: CREATININE 6.1 mg/dL (0.6-1.3)
[2019-02-18 07:18] LABS: BASOPHILS # (AUTO) 0.2 K/uL (0.00-0.22); BASOPHILS % (AUTO) 1.1 % (0.0-2.0); EOSINOPHILS # (AUTO) 0.7 K/uL (0-0.4); EOSINOPHILS % (AUTO) 3.5 % (0.0-4.0); HEMATOCRIT 30.5 % (36-48); HEMOGLOBIN 10.3 g/dL (12.0-16.0); LYMPHOCYTES # (AUTO) 0.9 K/uL (2.5-16.5); LYMPHOCYTES % (AUTO) 4.7 % (20.5-51.1); MEAN CORPUSCULAR HEMOGLOBIN 34 pg (27-31); MEAN CORPUSCULAR HGB CONC 34 g/dL (33-37); MEAN CORPUSCULAR VOLUME 99.2 fL (80-94); MONOCYTES # (AUTO) 2.5 K/uL (0.8-1.0); MONOCYTES % (AUTO) 13.1 % (1.7-9.3); NEUTROPHILS # (AUTO) 14.6 K/uL (1.8-7.7); NEUTROPHILS % (AUTO) 77.6 % (42.2-75.2); PLATELET COUNT (AUTO) 95 K/uL (140-450); RED BLOOD CELL COUNT(AUTO) 3.08 MIL/uL (4.20-5.40); RED CELL DISTRIBUTION WIDTH 21.1 % (11.6-13.7); WHITE BLOOD COUNT (AUTO) 18.8 K/uL (4.8-10.8)
--- NOTE | 2019-02-18 07:28 | NUR ---
ENDORSED PT TO DAY SHIFT NURSE MELISA RN, PT STABLE, NO DISTRESS NOTED, CALL LIGHT WITHIN REACH.
--- NOTE | 2019-02-18 07:30 | NUR ---
RECEIVED BEDSIDE REPORT FROM HOT ROLL INSPECTOR NURSE. PATIENT IS RESTING ON BED AND AWAKE AT THIS TIME. PATIENT IS AAOX4 AND SPEAKS [place] ONLY. ABLE TO MAKE NEED KNOWN AND FOLLOW SIMPLE COMMAND. DENIES PAIN AT THIS TIME. RESPIRATION EVEN AND UNLABORED ON RA. NO SIGNS OF DISTRESS NOTED. IV ON R WRIST 24G, CLEAN AND DRY, NOT INFUSING AT THIS TIME. LEFT AV FISTULA ON UPPER ARM NOTED, SIGN POSTED FOR NO BLOOD PRESSURE AND VENIPUNCTURE ON L ARM. DRESSING CLEAN AND DRY ON LEFT LEG NOTED. PATIENT IS CONTINENT AND ABLE TO AMBULATE TO BATHROOM WITH ASSIST. SAFETY MEASURES IN PLACE. BED IN LOW POSITION AND CALL LIGHT WITHIN REACH. INSTRUCTED PATIENT TO USE THE CALL LIGHT FOR ANY ASSISTANCE AND PATIENT WAS AWARE.
[2019-02-18 08:00] VITALS: BP 90/54
[2019-02-18] MEDS: CARVEDILOL 6.25 MG TAB PO SCH ×2 (08:00→17:00)
[2019-02-18] MEDS: LACTOBACILLUS RHAMNOSUS GG 1 EACH CAP PO SCH (08:59)
[2019-02-18] MEDS: CALCIUM ACETATE 667 MG TAB PO SCH ×3 (09:00→17:00)
[2019-02-18] MEDS: VIT-B COMP/VIT-C/FOLIC ACID 1 TAB PO SCH (09:01)
[2019-02-18] MEDS: GABAPENTIN 100 MG CAP PO SCH (09:01)
[2019-02-18] MEDS: DOCUSATE SODIUM 100 MG GELCAP PO SCH ×2 (09:01→21:24)
[2019-02-18] MEDS: METOLAZONE 2.5 MG TAB PO SCH (09:01)
[2019-02-18] MEDS: VITAMIN D 400 IU TAB PO SCH (09:02)
--- NOTE | 2019-02-18 09:02 | NUR ---
ADMINISTERED MEDS PER MD ORDER, PATIENT TOLERATED WELL. HOLD BP MED COREG AND METOLAZONE DUE TO PATIENT IS GOING TO DIALYSIS. PATIENT DENIED PAIN AND SOB. NO SIGNS OF DISTRESS NOTED. SAFETY MEASURES IN PLACE. BED IN LOW POSITION AND BED ALARM ACTIVATED. CALL LIGHT WITHIN REACH. INSTRUCTED PATIENT TO USE THE CALL LIGHT FOR ANY ASSISTANCE AND PATIENT WAS BEDOYA.
--- NOTE | 2019-02-18 09:09 | NUR ---
I RECEIVED A CALL FROM JACKIE SCAN SR PLAN , PER JACKIE SHE STILL WAITING FOR [employer] EVALUATION PAPER TO FOR APPROVAL AND WILL CALL BACK.
--- NOTE | 2019-02-18 11:15 | NUR ---
PATIENT CAME BACK FROM WALKING WITH PHYSICAL THERAPIST AND SITTING UP ON CHAIR NEXT TO BED. NO SIGNS OF DISTRESS NOTED. SAFETY MEASURES IN PLACE. CALL LIGHT WITHIN REACH.
--- NOTE | 2019-02-18 11:30 | NUR ---
CALLED MADELAINE GODDARD SR SHE HAS THE KINDRID EVAL AND REVIEWING IT AND WILL CALL BACK
--- NOTE | 2019-02-18 12:04 | NUR ---
FOLLOWED UP WITH PATIENT'S DIALYSIS. CALLED AND SPOKE DE LA O, PER DE LA [facility], THEY WILL ARRIVE TO THE HOSPITAL ARRIVE [id number] FOR PATIENT'S DIALYSIS.
[2019-02-18] MEDS: GAUZE TP SCH (12:45)
--- NOTE | 2019-02-18 12:52 | NUR ---
PERFORMED WOUND CARE AND CHANGED SOILED SAM BANDAGE, PATIENT TOLERATED WELL. PATIENT IS SITTING UP ON CHAIR. DENIES PAIN. NO SIGNS OF DISTRESS NOTED.SAFETY MEASURES IN PLACE. CALL LIGHT WITHIN REACH. INSTRUCTED PATIENT TO USE THE CALL LIGHT FOR ANY ASSISTANCE AND PATIENT WAS AWARE.
--- NOTE | 2019-02-18 13:35 | NUR ---
PATIENT IS SITTING UP ON CHAIR. NO SIGNS OF DISTRESS NOTED. SAFETY MEASURES IN PLACE. CALL LIGHT WITHIN REACH. INSTRUCTED PATIENT TO USE THE CALL LIGHT FOR ANY ASSISTANCE AND PATIENT WAS AWARE.
--- NOTE | 2019-02-18 14:00 | NUR ---
CALLED AND LEFT A MESSAGE FOR MADELAINE REGARDING THE [employer] EVAL
--- NOTE | 2019-02-18 15:00 | NUR ---
CALLED MADELAINE REGARDING THE EMILE EVAL TAMIKA BURKETT THEY REVIEW THE CASE AND DENIED IT, TAMIKA BURKETT WILL PRESENT THE CASE TO THEIR MUD TEMPERER AND CALL BACK .I CALLED DR DENISE CAM LEFT A MESSAGE TO DISCUSS THE CASE WITH THEIR MD .
--- NOTE | 2019-02-18 15:15 | NUR ---
PATIENT IS SLEEPING ON BED AT THIS TIME. EVEN CHEST RISES NOTED. NO SIGNS OF DISTRESS NOTED. BED ALARM ACTIVATED. BED IN LOW POSITION AND CALL LIGHT WITHIN REACH.
[2019-02-18 16:00] VITALS: BP 109/60
--- NOTE | 2019-02-18 17:27 | NUR ---
PATIENT IS GETTING DIALYSIS. ORLANDO CARPENTER RN IS BY BEDSIDE. NO SIGNS OF DISTRESS NOTED. HOLD 1700 MEDS DUE TO PATIENT IS IN DIALYSIS. SAFETY MEASURES IN PLACE. BED IN LOW POSITION AND CALL LIGHT WITHIN REACH.
--- NOTE | 2019-02-18 19:15 | NUR ---
ENDORSED PATIENT AT BEDSIDE TO LOSS PREVENTION ASSOCIATE NURSE FOR CONTINUITY OF CARE. PATIENT IS AWAKE AND GETTING DIALYSIS ON BED. NO SIGNS OF DISTRESS NOTED. DIALYSIS NURSE PAULINE IS BY BEDSIDE. PATIENT IS IN STABLE CONDITION. SAFETY MEASURES IN PLACE. BED IN LOW POSITION AND CALL LIGHT WITHIN REACH.
--- NOTE | 2019-02-18 19:30 | NUR ---
ASSUMED CARE OF PATIENT, ONGOING HEMODIALYSIS, RN AT BEDSIDE. STABLE CONDITION. NO COMPLAINS. CALL LIGHT WITHIN REACH.
--- NOTE | 2019-02-18 21:00 | NUR ---
HEMODIALYSIS COMPLETED-1800ML OUTPUT. VITAL SIGN STABLE. DUE MEDS GIVEN. REPOSITIONED TO LEFT SIDE LYING. CALL LIGHT WITHIN REACH. CARE BOARD UPDATED. PLAN OF CARE DISCUSSED WITH PATIENT, NEEDS REINFORCEMENT.
[2019-02-18] MEDS: ATORVASTATIN 20 MG TAB PO SCH (21:25)
--- NOTE | 2019-02-18 23:18 | NUR ---
SUBSTATION OPERATOR CHIEF AT BEDSIDE, REPOSITIONED AND SLEEPING WELL. NO COMPLAINS. CALL LIGHT WITHIN REACH.
--- NOTE | 2019-02-18 23:20 | NUR ---
DR. VOSS AT BEDSIDE.
[2019-02-18 23:59] VITALS: BP 99/57
--- NOTE | 2019-02-19 | NUR ---
ASLEEP. VITAL SIGNS STABLE. NO COMPLAINS. CALL LIGHT WITHIN REACH.
--- NOTE | 2019-02-19 02:00 | NUR ---
ASLEEP. NO COMPLAINS. CALL LIGHT WITHIN REACH.
[2019-02-19] MEDS: PIPER/TAZO 2.25GM/D5W PREMIX 50 ML IV SCH ×2 (04:26→12:59)
--- NOTE | 2019-02-19 04:30 | NUR ---
IV ZOSYN GIVEN. ASLEEP EASILY AROUSABLE. NO COMPLAINS. CALL LIGHT WITHIN REACH.
[2019-02-19 06:49] LABS: HEMATOCRIT 30.7 % (36-48); HEMOGLOBIN 10.3 g/dL (12.0-16.0); MEAN CORPUSCULAR HEMOGLOBIN 33 pg (27-31); MEAN CORPUSCULAR HGB CONC 34 g/dL (33-37); MEAN CORPUSCULAR VOLUME 98.8 fL (80-94); PLATELET COUNT (AUTO) 106 K/uL (140-450); RED CELL DISTRIBUTION WIDTH 20.6 % (11.6-13.7); WHITE BLOOD COUNT (AUTO) 18.5 K/uL (4.8-10.8)
[2019-02-19 06:59] LABS: ANION GAP 11.6 (8-16); CARBON DIOXIDE 27.7 mmol/L (21-32); CHLORIDE 100 mmol/L (98-107); GLUCOSE 86 mg/dL (74-106); POTASSIUM 3.3 mmol/L (3.5-5.1); SODIUM SERUM 136 mmol/L (136-145); UREA NITROGEN, BLOOD 21 mg/dL (7-18)
[2019-02-19 07:03] LABS: MAGNESIUM 1.7 mg/dL (1.8-2.4); PHOSPHORUS 3.5 mg/dL (2.5-4.9)
[2019-02-19 07:06] LABS: CREATININE 4.6 mg/dL (0.6-1.3)
--- NOTE | 2019-02-19 07:32 | NUR ---
RECEIVED BEDSIDE REPORT FROM STACKER AND SORTER OPERATOR NURSE. PATIENT IS RESTING ON BED AND AWAKE AT THIS TIME. PATIENT IS AAOX4 AND SPEAKS ROMANSH ONLY. ABLE TO MAKE NEED KNOWN AND FOLLOW SIMPLE COMMAND. DENIES PAIN AT THIS TIME. RESPIRATION EVEN AND UNLABORED ON RA. NO SIGNS OF DISTRESS NOTED. IV ON R WRIST 24G, CLEAN AND DRY, NOT INFUSING AT THIS TIME. LEFT AV FISTULA ON UPPER ARM NOTED, SIGN POSTED FOR NO BLOOD PRESSURE AND VENIPUNCTURE ON L ARM. DRESSING CLEAN AND DRY ON LEFT LEG NOTED. PATIENT IS CONTINENT AND ABLE TO AMBULATE TO BATHROOM WITH ASSIST. SAFETY MEASURES IN PLACE. BED ALARM ACTIVATED. BED IN LOW POSITION AND CALL LIGHT WITHIN REACH. INSTRUCTED PATIENT TO USE THE CALL LIGHT FOR ANY ASSISTANCE AND PATIENT WAS AWARE.
--- NOTE | 2019-02-19 07:32 | NUR ---
ENDORSED CARE AT BEDSIDE WITH ONDINA REGALADO PATIENT IN STABLE CONDITION.
[2019-02-19 08:00] VITALS: BP 104/52
[2019-02-19 08:04] LABS: LYMPHOCYTES % (MANUAL) 8 % (20-46); MONOCYTES % (MANUAL) 11 % (5-12)
[2019-02-19 08:05] LABS: EOSINOPHILS % (MANUAL) 2 % (0-4)
--- NOTE | 2019-02-19 08:41 | NUR ---
SPOKE WITH DR WALKER REGARDING THE DENIAL FOR LTAC EVALUATION ,EXPECTING A CALL FROM MD TO MD DISCUSSION , IF NOT LTAC HE WILL DISCUSS WITH DR MENDOZA TO SEND HER BACK TO SNF.
[2019-02-19] MEDS: DOCUSATE SODIUM 100 MG GELCAP PO SCH (08:57)
[2019-02-19] MEDS: LACTOBACILLUS RHAMNOSUS GG 1 EACH CAP PO SCH (08:57)
[2019-02-19] MEDS: VITAMIN D 400 IU TAB PO SCH (08:57)
[2019-02-19] MEDS: METOLAZONE 2.5 MG TAB PO SCH (08:57)
[2019-02-19] MEDS: FAMOTIDINE 20 MG TAB PO SCH (08:58)
[2019-02-19] MEDS: CALCIUM ACETATE 667 MG TAB PO SCH ×3 (08:58→17:14)
[2019-02-19] MEDS: GABAPENTIN 100 MG CAP PO SCH (08:58)
[2019-02-19] MEDS: VIT-B COMP/VIT-C/FOLIC ACID 1 TAB PO SCH (08:58)
[2019-02-19] MEDS: CARVEDILOL 6.25 MG TAB PO SCH ×2 (08:58→17:15)
[2019-02-19] MEDS ORDERED: POTASSIUM CHLORIDE 10 MEQ TABER PO SCH (09:00)
[2019-02-19] MEDS ORDERED: MAG SULF 2000 MG/WATER PREMIX 50 ML IV SCH (09:00)
--- NOTE | 2019-02-19 09:15 | NUR ---
ADMINISTERED MEDS PER MD ORDER, PATIENT TOLERATED WELL. PATIENT IS AWAKE AND SITTING UP ON BED. DENIES PAIN AND SOB. NO SIGNS OF DISTRESS NOTED. SAFETY MEASURES IN PLACE. BED IN LOW POSITION AND CALL LIGHT WITHIN REACH. INSTRUCTED PATIENT TO USE THE CALL LIGHT FOR ANY ASSISTANCE AND PATIENT WAS AWARE.
--- NOTE | 2019-02-19 10:00 | NUR ---
CALLED MADELAINE AND LEFT A MESSAGE
--- NOTE | 2019-02-19 11:31 | NUR ---
PATIENT IS RESTING ON BED AT THIS TIME. DENIES PAIN AND SOB. NO SIGNS OF DISTRESS NOTED. SAFETY MEASURES IN PLACE. BED ALARM ACTIVATED. BED IN LOW POSITION AND CALL LIGHT WITHIN REACH. INSTRUCTED PATIENT TO USE THE CALL LIGHT FOR ANY ASSISTANCE AND PATIENT WAS AWARE.
[2019-02-19] MEDS: GAUZE TP SCH (12:59)
--- NOTE | 2019-02-19 13:15 | NUR ---
PERFORMED WOUND CARE AND CHANGED SOILED SAM BANDAGE, MINIMAL DRAINING, PATIENT TOLERATED WELL. PATIENT IS RESTING ON BED AT THIS TIME. DENIES PAIN. NO SIGNS OF DISTRESS NOTED. SAFETY MEASURES IN PLACE. BED IN LOW POSITION AND BED ALARM ACTIVATED. CALL LIGHT WITHIN REACH. INSTRUCTED PATIENT TO USE THE CALL LIGHT FOR ANY ASSISTANCE AND PATIENT WAS AWARE.
--- NOTE | 2019-02-19 13:44 | NUR ---
I RECEIVED A CALL FROM MADELAINE , STATED SHE WAS ON THE MEETING ALL DAY , STILL WAITING THE ORACLE SOLUTIONS ARCHITECT TO REVIEW AND WILL CALL BACK . JUST IN CASE I PROVIDED DR DENISE Frost'S CELL PHONE FOR MICHAEL. SPOKE WITH DUANE FROM [facility] STATED HE IS WAITING FOR DENIAL PAPER AND WILL PRESENT THE CASE TO BONG MACK.
--- NOTE | 2019-02-19 14:18 | NUR ---
MADELAINE FROM SCAN CALLED AND STATED LTAC EVAL IS APPROVED AND REQUESTING WHICH EMILE IS ACCEPTING THE PATIENT CALLED DUANE AND NOTIFIED TO CALL MADELAINE FOR THE AUTHORIZATION AND WILL CALL [facility] FOR THE BED.
--- NOTE | 2019-02-19 14:58 | NUR ---
CALLED [facility] SPOKE WITH ROBERTO FOR AUTH FOR TRANSPORT , PER ROBERTO CAN USE [facility] OR [facility] THE AUTH # [id number].
--- NOTE | 2019-02-19 15:20 | NUR ---
Professional Services Consultant Note: Per Bi Manager Hedy plan is to transfer patient to [facility] today. I called patient's son John Benoit to inform him patient has been accepted at [facility], no answer, left message.
--- NOTE | 2019-02-19 15:35 | NUR ---
PATIENT IS RESTING ON BED. DENIED PAIN AND SOB. RESPIRATION EVEN AND UNLABORED ON RA. NO SIGNS OF DISTRESS NOTED. SAFETY MEASURES IN PLACE. BED IN LOW POSITION AND CALL LIGHT WITHIN REACH. INSTRUCTED PATIENT TO USE THE CALL LIGHT FOR ANY ASSISTANCE AND PATIENT WAS AWARE.
[2019-02-19 16:00] VITALS: BP 101/51
--- NOTE | 2019-02-19 16:14 | NUR ---
SPOKE WITH DR DENISE Bello REGARDING THE DISCHARGE ABX TO CALL AND ASK DR MENDOZA. I CALLED DR MENDOZA , AND STATED TO CONTINUE THE ZOSYN FOR NOW AND WHEN SHE GETS TO [facility] TO [place] DR MENDOZA . DUANE FROM [facility] WILL CALL TO GIVE THE ROOM.ARRANGE TRANSPORT WITH [facility] AND PLACE IT WILL CALL AND PROVIDED THE AUTH # [id number]. NOTIFIED MELISA REGALADO AND CHARGE NURSE KATY.
--- NOTE | 2019-02-19 16:56 | NUR ---
I RECEIVED A CALL FROM DUANE BAPTISTE AND PATIENT CAN GO TO ROOM 312B AND ADMITTING DR WILL BE DR DENISE Frost. USED CAR SALES MANAGER TIME IS 1900 WITH [facility]
--- NOTE | 2019-02-19 17:00 | NUR ---
CALLED PATIENT'S SON JORGE [phone] AND NOTIFIED JORGE THAT PATIENT WILL BE TRANSFER TO [facility] AT 1900 TODAY. PATIENT IS PLACED IN ROOM 312B. [facility] PROVIDED ADDRESS AND PHONE NUMBER TO JORGE. ANSWERED ALL JORGE'S QUESTIONS. JORGE ALSO SPOKE WITH PATIENT OVER THE PHONE. JORGE WAS AWARE AND ACKNOWLEDGED THE TRANSFER.
--- NOTE | 2019-02-19 17:01 | NUR ---
[facility] TAMIKA [facility]ERSON, TRANSPORT ARRANGED FOR BLS LEASES AND LAND SUPERVISOR @4650.
--- NOTE | 2019-02-19 17:53 | NUR ---
CALLED [facility] AND GAVE FULL REPORT TO JAYNE REGALADO. JAYNE WAS AWARE THAT ONCE PATIENT ARRIVE AT HER FACILITY, THEY WILL CALL DR VOSS FOR ABX TREATMENT PLAN. PROVIDED DR VOSS'S NUMBER. JAYNE AWARED THAT PATIENT IS PLACE IN ROOM 312B AND WILL BE CORPORATE SECURITY MANAGER FROM [facility] AT 1900. ANSWERED ALL JAYNE'S QUESTIONS AND PROVIDED A CALL BACK NUMBER FOR ANY FURTHER INQUIRY.
--- NOTE | 2019-02-19 18:45 | NUR ---
PATIENT HAS BEEN CHANGE INTO [facility] AND READY FOR TRANSFER. AWAITING FOR SENIOR SAS DEVELOPER. PATIENT IS RESTING ON BED. NO SIGNS OF DISTRESS NOTED. SAFETY MEASURES IN PLACE. BED IN LOW POSITION AND CALL LIGHT WITHIN REACH.
--- NOTE | 2019-02-19 19:20 | NUR ---
DISCHARGE INSTRUCTION PROVIDED TO PATIENT AT BEDSIDE. PROVIDED PRINTED DISCHARGE MATERIALS. EDUCATED PATIENT ON DISEASE MANAGEMENT, MEDICATION REGIMEN AND SIDE EFFECTS, DIET REGIMEN. PATIENT VERBALIZED OK. REMOVED ALL ARM BANDS. PATIENT TOOK ALL HER BELONGINGS. PATIENT IS GOING TO DISCHARGE AT THIS TIME ACCOMPANY BY [facility] TRANSPORT PERSONNELS. PATIENT IS IN STABLE CONDITION.
== END 2019-02-19 19:20 | DRG 871 ==
LOC: MED 13:49 → MTU 18:04
PROVIDERS: ADMIT Preventive Medicine Preventive Medicine/Occupational Environmental Medicine; ATTEND Preventive Medicine Preventive Medicine/Occupational Environmental Medicine
PROC: 5A1D70Z Performance of Urinary Filtration, Intermittent, Less than 6 Hours Per Day (ICD-10-PCS; 2019-02-01)
PROC: 0W9G3ZZ Drainage of Peritoneal Cavity, Percutaneous Approach (ICD-10-PCS; 2019-02-04)
PROC: 5A1D70Z Performance of Urinary Filtration, Intermittent, Less than 6 Hours Per Day (ICD-10-PCS; 2019-02-04)
PROC: 0DJD8ZZ Inspection of Lower Intestinal Tract, Via Natural or Artificial Opening Endoscopic (ICD-10-PCS; 2019-02-06)
PROC: 5A1D70Z Performance of Urinary Filtration, Intermittent, Less than 6 Hours Per Day (ICD-10-PCS; 2019-02-06)
PROC: 0Y9J0ZZ Drainage of Left Lower Leg, Open Approach (ICD-10-PCS; principal; 2019-02-06 08:00)
PROC: 5A1D70Z Performance of Urinary Filtration, Intermittent, Less than 6 Hours Per Day (ICD-10-PCS; 2019-02-11)
PROC: 5A1D70Z Performance of Urinary Filtration, Intermittent, Less than 6 Hours Per Day (ICD-10-PCS; 2019-02-13)
PROC: 5A1D70Z Performance of Urinary Filtration, Intermittent, Less than 6 Hours Per Day (ICD-10-PCS; 2019-02-15)
PROC: 5A1D70Z Performance of Urinary Filtration, Intermittent, Less than 6 Hours Per Day (ICD-10-PCS; 2019-02-18)
DX: A41.9 Sepsis, unspecified organism (principal); J96.00 Acute respiratory failure, unspecified whether with hypoxia or hypercapnia; N18.6 End stage renal disease; E43 Unspecified severe protein-calorie malnutrition; C90.00 Multiple myeloma not having achieved remission; E87.0 Hyperosmolality and hypernatremia; I13.11 Hypertensive heart and chronic kidney disease without heart failure, with stage 5 chronic kidney disease, or end stage renal disease; R18.8 Other ascites; M48.54XA Collapsed vertebra, not elsewhere classified, thoracic region, initial encounter for fracture; L03.116 Cellulitis of left lower limb; E87.1 Hypo-osmolality and hyponatremia; L03.115 Cellulitis of right lower limb; N39.0 Urinary tract infection, site not specified; Q27.30 Arteriovenous malformation, site unspecified; Z99.2 Dependence on renal dialysis; K21.9 Gastro-esophageal reflux disease without esophagitis; D63.1 Anemia in chronic kidney disease; D69.6 Thrombocytopenia, unspecified; E11.22 Type 2 diabetes mellitus with diabetic chronic kidney disease; E11.65 Type 2 diabetes mellitus with hyperglycemia; E83.39 Other disorders of phosphorus metabolism; E83.52 Hypercalcemia; E83.41 Hypermagnesemia; E87.6 Hypokalemia; K74.60 Unspecified cirrhosis of liver; K42.9 Umbilical hernia without obstruction or gangrene; S80.12XA Contusion of left lower leg, initial encounter; X58.XXXA Exposure to other specified factors, initial encounter; K57.30 Diverticulosis of large intestine without perforation or abscess without bleeding; K55.20 Angiodysplasia of colon without hemorrhage; B95.4 Other streptococcus as the cause of diseases classified elsewhere; B95.8 Unspecified staphylococcus as the cause of diseases classified elsewhere; E83.51 Hypocalcemia; K63.9 Disease of intestine, unspecified; Z74.01 Bed confinement status; Z68.27 Body mass index [BMI] 27.0-27.9, adult; Z79.899 Other long term (current) drug therapy; Y93.89 Activity, other specified; Y92.89 Other specified places as the place of occurrence of the external cause; Y99.8 Other external cause status; Z93.3 Colostomy status
CPT/HCPCS: 36415; 49083; 71045; 73610; 76705; 78807; 80048; 80053; 80202; 81003; 82009; 82150; 82945; 82948; 83605; 83690; 83735; 84100; 84157; 84484; 84550; 85025; 85610; 85651; 85730; 86140; 86704; 86706; 86708; 86709; 86803; 87040; 87070; 87075; 87081; 87186; 87205; 87340; 89051; 90935; 93005; 93975; 94640; 96361; 96374; 97110; 97112; 97116; 97530; 99285; J0696; J1200; J1450; J1956; J2001; J2060; J2250; J2270; J2405; J2543; J2920; J3010; J3370; J3475; J3490; J7030; J7060; J7620; Q0092

== ENCOUNTER 2019-03-26 14:34 | Inpatient (IN) | payer OTHER ==
[~2019-03-26] VITALS: Ht 157.5 cm; Wt 54.4 kg
[~2019-03-26 14:34] MED LIST: ACET-2619 PO; BISA-246 RC; CARV6.25 PO; DOCU-299 PO; ERGO80009 PO; FAMO-90 PO; GABA100C PO; HYDR-5122 PO; PHO667 PO; VITA1TAB44 PO; ZAR2.5 PO; [UNRECOGNIZED DRUG - CODE]
[2019-03-26 14:35] VITALS: BP 128/64
[2019-03-26] MEDS ORDERED: NACL 0.9% 500 ML IV SCH (15:18)
[2019-03-26 15:55] LABS: HEMATOCRIT 32.3 % (36-48); HEMOGLOBIN 10.5 g/dL (12.0-16.0); MEAN CORPUSCULAR HEMOGLOBIN 33 pg (27-31); MEAN CORPUSCULAR HGB CONC 32 g/dL (33-37); MEAN CORPUSCULAR VOLUME 100.7 fL (80-94); PLATELET COUNT (AUTO) 154 K/uL (140-450); RED BLOOD CELL COUNT(AUTO) 3.21 MIL/uL (4.20-5.40); RED CELL DISTRIBUTION WIDTH 20.4 % (11.6-13.7)
[2019-03-26 15:58] LABS: WHITE BLOOD COUNT (AUTO) 25.5 K/uL (4.8-10.8)
[2019-03-26 16:10] LABS: PROTHROMBIN TIME 14.5 secs (10.8-13.4)
[2019-03-26 16:18] LABS: ALBUMIN 2.5 g/dL (3.4-5.0); ANION GAP 10.4 (8-16); ASPARTATE AMINOTRANSFERASE 61 U/L (15-37); CARBON DIOXIDE 31.1 mmol/L (21-32); CHLORIDE 99 mmol/L (98-107); EOSINOPHILS % (MANUAL) 9 % (0-4); GLUCOSE 113 mg/dL (74-106); LYMPHOCYTES % (MANUAL) 5 % (20-46); MONOCYTES % (MANUAL) 10 % (5-12); POTASSIUM 3.5 mmol/L (3.5-5.1); SODIUM SERUM 137 mmol/L (136-145); TOTAL BILIRUBIN 0.9 mg/dL (0.0-1.0); UREA NITROGEN, BLOOD 29 mg/dL (7-18)
[2019-03-26 16:19] LABS: CREATININE 4.9 mg/dL (0.6-1.3)
[2019-03-26] MEDS ORDERED: PIPERACILLIN/TAZOBACTAM 3.375 GM in DEXTROSE 5% 50 ML IV ONE (16:45)
[2019-03-26 17:06] LABS: APPEARANCE,URINE CLOUDY (CLEAR); COLOR,URINE YELLOW (YELLOW)
[2019-03-26 17:08] LABS: BLOOD, URINE 3+ (NEGATIVE); UGLUCOSE NEGATIVE (NEGATIVE)
[2019-03-26 17:09] LABS: BILIRUBIN,URINE NEGATIVE (NEGATIVE); LEUKOCYTE ESTERASE ,URINE 3+ (NEGATIVE); NITRITE, URINE NEGATIVE (NEGATIVE); RBC,URINE TOO NUMEROUS TO COUN /HPF (0-5); WBC,URINE TOO MANY TO COUNT /HPF (0-5)
[2019-03-26] MEDS ORDERED: LEVOFLOXACIN 500 MG/D5W PREMIX 100 ML IV ONE (17:30)
[2019-03-26] MEDS ORDERED: PIPERACILLIN/TAZOBACTAM 3.375 GM VIAL IV ONE (17:35)
[2019-03-26] MEDS ORDERED: NACL 0.9% 1,000 ML IV SCH (19:52)
[2019-03-26] MEDS ORDERED: ONDANSETRON 4 MG/2 ML VIAL IM/IVP PRN (19:55)
[2019-03-26] MEDS ORDERED: ACETAMINOPHEN 325 MG TAB PO PRN (19:55)
[2019-03-26] MEDS ORDERED: MORPHINE SULFATE 2 MG/ML SYR IVP PRN (19:55)
[2019-03-26] MEDS ORDERED: HYDROcodone/APAP 5/325 MG 1 TAB TAB PO PRN (19:55)
[2019-03-26] MEDS ORDERED: DOCUSATE SODIUM 100 MG GELCAP PO PRN (19:55)
[2019-03-26 20:35] LABS: MAGNESIUM 1.6 mg/dL (1.8-2.4); PHOSPHORUS 3.4 mg/dL (2.5-4.9); THYROID STIMULATING HORMONE 3.14 uIU/mL (0.34-3.74)
[2019-03-26 21:00] VITALS: BP 137/59
[2019-03-27] VITALS: BP 107/52
[2019-03-27] MEDS ORDERED: MAG SULF 2000 MG/WATER PREMIX 50 ML IV SCH (03:00)
[2019-03-27 04:00] VITALS: BP 109/59
[2019-03-27] MEDS ORDERED: PIPERACILLIN/TAZOBACTAM 2.25 GM VIAL IV ONE (05:20)
[2019-03-27] MEDS ORDERED: PIPERACILLIN/TAZOBACTAM 2.25 GM in DEXTROSE 5% 50 ML IV SCH ×2 (06:00→18:00)
[2019-03-27 07:17] LABS: ANION GAP 13.6 (8-16); CARBON DIOXIDE 27.8 mmol/L (21-32); CHLORIDE 101 mmol/L (98-107); GLUCOSE 101 mg/dL (74-106); POTASSIUM 3.4 mmol/L (3.5-5.1); SODIUM SERUM 139 mmol/L (136-145); UREA NITROGEN, BLOOD 33 mg/dL (7-18)
[2019-03-27 07:25] LABS: BASOPHILS # (AUTO) 0.1 K/uL (0.00-0.22); BASOPHILS % (AUTO) 0.4 % (0.0-2.0); EOSINOPHILS # (AUTO) 0.6 K/uL (0-0.4); EOSINOPHILS % (AUTO) 3.2 % (0.0-4.0); HEMOGLOBIN 9.7 g/dL (12.0-16.0); LYMPHOCYTES # (AUTO) 0.7 K/uL (2.5-16.5); LYMPHOCYTES % (AUTO) 4.2 % (20.5-51.1); MEAN CORPUSCULAR HEMOGLOBIN 34 pg (27-31); MEAN CORPUSCULAR HGB CONC 33 g/dL (33-37); MEAN CORPUSCULAR VOLUME 101.2 fL (80-94); MONOCYTES # (AUTO) 2.2 K/uL (0.8-1.0); MONOCYTES % (AUTO) 12.6 % (1.7-9.3); NEUTROPHILS # (AUTO) 14.1 K/uL (1.8-7.7); NEUTROPHILS % (AUTO) 79.6 % (42.2-75.2); PLATELET COUNT (AUTO) 112 K/uL (140-450); RED BLOOD CELL COUNT(AUTO) 2.87 MIL/uL (4.20-5.40); RED CELL DISTRIBUTION WIDTH 20.2 % (11.6-13.7); WHITE BLOOD COUNT (AUTO) 17.8 K/uL (4.8-10.8)
[2019-03-27 07:32] LABS: MAGNESIUM 2.4 mg/dL (1.8-2.4); PHOSPHORUS 3.6 mg/dL (2.5-4.9)
[2019-03-27 07:35] LABS: CHOL/HDL RATIO 4.3 (1-4.5)
[2019-03-27 08:00] VITALS: BP 99/53
[2019-03-27 08:09] LABS: CREATININE 5.4 mg/dL (0.6-1.3)
[2019-03-27] MEDS: LACTOBACILLUS RHAMNOSUS GG 1 EACH CAP PO SCH (08:16)
[2019-03-27] MEDS ORDERED: BISACODYL 10 MG SUPP RC PRN (09:15)
[2019-03-27] MEDS ORDERED: ACETAMINOPHEN 325 MG TAB PO PRN (09:15)
[2019-03-27] MEDS ORDERED: BISA-246 RC (09:30)
[2019-03-27] MEDS ORDERED: GABA100C PO (09:30)
[2019-03-27] MEDS ORDERED: FOLI1TAB90 PO (09:30)
[2019-03-27] MEDS ORDERED: DOCU-299 PO (09:30)
[2019-03-27] MEDS ORDERED: PHO667 PO (09:30)
[2019-03-27] MEDS ORDERED: FAMO-90 PO (09:30)
[2019-03-27] MEDS ORDERED: ERGO500028 PO (09:30)
[2019-03-27] MEDS ORDERED: CARV6.25 PO ×2 (09:30)
[2019-03-27] MEDS ORDERED: ACET-2619 PO (09:30)
[2019-03-27] MEDS ORDERED: CALCIUM ACETATE 667 MG TAB PO SCH (09:41)
[2019-03-27] MEDS ORDERED: VIT-B COMP/VIT-C/FOLIC ACID 1 TAB PO SCH (10:00)
[2019-03-27] MEDS ORDERED: CARVEDILOL 6.25 MG TAB PO SCH (10:00)
[2019-03-27] MEDS ORDERED: FOLIC ACID 1 MG TAB PO SCH (10:00)
[2019-03-27] MEDS ORDERED: GABAPENTIN 100 MG CAP PO SCH (10:00)
[2019-03-27 12:00] VITALS: BP 108/54
[2019-03-27] MEDS: CALCIUM ACETATE 667 MG TAB PO SCH ×2 (13:59→16:28)
[2019-03-27 16:00] VITALS: BP 104/48
[2019-03-27 19:56] VITALS: BP 106/50
[2019-03-27] MEDS: DOCUSATE SODIUM 100 MG GELCAP PO SCH (21:21)
[2019-03-27] MEDS ORDERED: cefTRIAXone 1,000 MG VIAL ONE (23:20)
[2019-03-28 00:09] VITALS: BP 104/50
[2019-03-28 05:24] VITALS: BP 96/53
[2019-03-28 07:30] LABS: BASOPHILS % (AUTO) 0.2 % (0.0-2.0); EOSINOPHILS # (AUTO) 0.6 K/uL (0-0.4); EOSINOPHILS % (AUTO) 3.9 % (0.0-4.0); HEMATOCRIT 28.2 % (36-48); HEMOGLOBIN 9.5 g/dL (12.0-16.0); LYMPHOCYTES # (AUTO) 0.7 K/uL (2.5-16.5); LYMPHOCYTES % (AUTO) 4.5 % (20.5-51.1); MEAN CORPUSCULAR HEMOGLOBIN 34 pg (27-31); MEAN CORPUSCULAR HGB CONC 34 g/dL (33-37); MONOCYTES # (AUTO) 2.1 K/uL (0.8-1.0); NEUTROPHILS # (AUTO) 12.5 K/uL (1.8-7.7); NEUTROPHILS % (AUTO) 78.4 % (42.2-75.2); PLATELET COUNT (AUTO) 108 K/uL (140-450); RED BLOOD CELL COUNT(AUTO) 2.82 MIL/uL (4.20-5.40); RED CELL DISTRIBUTION WIDTH 19.5 % (11.6-13.7); WHITE BLOOD COUNT (AUTO) 15.9 K/uL (4.8-10.8)
[2019-03-28 07:31] LABS: ALBUMIN 2.2 g/dL (3.4-5.0); ANION GAP 8.7 (8-16); ASPARTATE AMINOTRANSFERASE 40 U/L (15-37); CARBON DIOXIDE 32.6 mmol/L (21-32); CHLORIDE 100 mmol/L (98-107); GLUCOSE 94 mg/dL (74-106); MAGNESIUM 1.7 mg/dL (1.8-2.4); PHOSPHORUS 2.7 mg/dL (2.5-4.9); POTASSIUM 3.3 mmol/L (3.5-5.1); SODIUM SERUM 138 mmol/L (136-145); TOTAL BILIRUBIN 0.7 mg/dL (0.0-1.0); UREA NITROGEN, BLOOD 23 mg/dL (7-18)
[2019-03-28 07:40] LABS: CREATININE 4.5 mg/dL (0.6-1.3)
[2019-03-28 08:00] VITALS: BP 109/64
[2019-03-28] MEDS ORDERED: KCL 20 MEQ/WATER INJ PREMIX 100 ML IV SCH (09:00)
[2019-03-28] MEDS: CARVEDILOL 6.25 MG TAB PO SCH ×2 (09:00→21:30)
[2019-03-28] MEDS: LACTOBACILLUS RHAMNOSUS GG 1 EACH CAP PO SCH (09:31)
[2019-03-28] MEDS: GABAPENTIN 100 MG CAP PO SCH (09:32)
[2019-03-28] MEDS: FAMOTIDINE 20 MG TAB PO SCH (09:32)
[2019-03-28] MEDS: VIT-B COMP/VIT-C/FOLIC ACID 1 TAB PO SCH (09:32)
[2019-03-28] MEDS: DOCUSATE SODIUM 100 MG GELCAP PO SCH ×2 (09:33→21:30)
[2019-03-28] MEDS: FOLIC ACID 1 MG TAB PO SCH (09:33)
[2019-03-28] MEDS: CALCIUM ACETATE 667 MG TAB PO SCH ×3 (09:33→17:02)
[2019-03-28 12:00] VITALS: BP 104/61
[2019-03-28] MEDS ORDERED: VANCOMYCIN PER PHARMACY MC PRN (14:05)
[2019-03-28] MEDS ORDERED: VANCOMYCIN 1,000 MG in DEXTROSE 5% 250 ML IV SCH (15:00)
[2019-03-28 16:00] VITALS: BP 101/55
[2019-03-28 20:00] VITALS: BP 91/45
[2019-03-28 20:33] LABS: HEMATOCRIT 25.1 % (36-48); HEMOGLOBIN 8.3 g/dL (12.0-16.0)
[2019-03-28] MEDS: LINEZOLID 600MG PREMIX 300 ML IV SCH (21:29)
[2019-03-29] VITALS: BP 72/36
[2019-03-29 04:00] VITALS: BP 72/36
[2019-03-29 06:43] LABS: BASOPHILS % (AUTO) 0.1 % (0.0-2.0); EOSINOPHILS # (AUTO) 0.5 K/uL (0-0.4); HEMATOCRIT 21.2 % (36-48); HEMOGLOBIN 7.1 g/dL (12.0-16.0); LYMPHOCYTES # (AUTO) 1.1 K/uL (2.5-16.5); MEAN CORPUSCULAR HEMOGLOBIN 33 pg (27-31); MEAN CORPUSCULAR HGB CONC 34 g/dL (33-37); MEAN CORPUSCULAR VOLUME 99.2 fL (80-94); MONOCYTES # (AUTO) 1.9 K/uL (0.8-1.0); NEUTROPHILS # (AUTO) 12.7 K/uL (1.8-7.7); PLATELET COUNT (AUTO) 98 K/uL (140-450); RED BLOOD CELL COUNT(AUTO) 2.14 MIL/uL (4.20-5.40); RED CELL DISTRIBUTION WIDTH 19.5 % (11.6-13.7); WHITE BLOOD COUNT (AUTO) 16.2 K/uL (4.8-10.8)
[2019-03-29 07:20] LABS: ANION GAP 12.3 (8-16); CARBON DIOXIDE 27.5 mmol/L (21-32); CHLORIDE 98 mmol/L (98-107); GLUCOSE 102 mg/dL (74-106); POTASSIUM 3.8 mmol/L (3.5-5.1); SODIUM SERUM 134 mmol/L (136-145); UREA NITROGEN, BLOOD 34 mg/dL (7-18)
[2019-03-29 07:22] LABS: LYMPHOCYTES % (AUTO) 6.6 % (20.5-51.1); NEUTROPHILS % (AUTO) 78.3 % (42.2-75.2)
[2019-03-29 07:23] LABS: CREATININE 5.6 mg/dL (0.6-1.3)
[2019-03-29 08:00] VITALS: BP_SYST 83; BP_SYST 94; BP_DIAS 43; BP_DIAS 45
[2019-03-29] MEDS ORDERED: NACL 0.9% 500 ML IV SCH (08:45)
[2019-03-29] MEDS: CARVEDILOL 6.25 MG TAB PO SCH (09:00)
[2019-03-29] MEDS: LACTOBACILLUS RHAMNOSUS GG 1 EACH CAP PO SCH (10:27)
[2019-03-29] MEDS: FOLIC ACID 1 MG TAB PO SCH (10:27)
[2019-03-29] MEDS: CALCIUM ACETATE 667 MG TAB PO SCH ×3 (10:27→17:28)
[2019-03-29] MEDS: VIT-B COMP/VIT-C/FOLIC ACID 1 TAB PO SCH (10:29)
[2019-03-29] MEDS: DOCUSATE SODIUM 100 MG GELCAP PO SCH ×2 (10:29→21:02)
[2019-03-29] MEDS: GABAPENTIN 100 MG CAP PO SCH (10:30)
[2019-03-29] MEDS: LINEZOLID 600MG PREMIX 300 ML IV SCH ×2 (10:30→19:30)
[2019-03-29 12:00] VITALS: BP 94/45
[2019-03-29 16:00] VITALS: BP 107/53
[2019-03-29 20:00] VITALS: BP 89/52
[2019-03-30] VITALS: BP 119/59
[2019-03-30 04:00] VITALS: BP 106/52
[2019-03-30 08:00] VITALS: BP 90/51
[2019-03-30] MEDS: CARVEDILOL 6.25 MG TAB PO SCH ×2 (09:00→21:00)
[2019-03-30] MEDS: DOCUSATE SODIUM 100 MG GELCAP PO SCH ×2 (10:31→21:39)
[2019-03-30] MEDS: FAMOTIDINE 20 MG TAB PO SCH (10:32)
[2019-03-30] MEDS: CALCIUM ACETATE 667 MG TAB PO SCH ×3 (10:32→17:08)
[2019-03-30] MEDS: FOLIC ACID 1 MG TAB PO SCH (10:32)
[2019-03-30] MEDS: VIT-B COMP/VIT-C/FOLIC ACID 1 TAB PO SCH (10:37)
[2019-03-30] MEDS: GABAPENTIN 100 MG CAP PO SCH (10:37)
[2019-03-30] MEDS: LACTOBACILLUS RHAMNOSUS GG 1 EACH CAP PO SCH (10:37)
[2019-03-30] MEDS: LINEZOLID 600MG PREMIX 300 ML IV SCH ×2 (10:38→21:39)
[2019-03-30 12:00] VITALS: BP 102/58
[2019-03-30 16:00] VITALS: BP 106/58
[2019-03-30 20:00] VITALS: BP 96/58
[2019-03-31] VITALS: BP 98/48
[2019-03-31] MEDS: LINEZOLID 600MG PREMIX 300 ML IV SCH ×2 (01:20→09:00)
[2019-03-31 04:00] VITALS: BP 106/74
[2019-03-31 08:00] VITALS: BP 89/42
[2019-03-31] MEDS: VIT-B COMP/VIT-C/FOLIC ACID 1 TAB PO SCH (09:00)
[2019-03-31] MEDS: CALCIUM ACETATE 667 MG TAB PO SCH ×3 (09:00→17:44)
[2019-03-31] MEDS: FOLIC ACID 1 MG TAB PO SCH (09:00)
[2019-03-31] MEDS: GABAPENTIN 100 MG CAP PO SCH (09:00)
[2019-03-31] MEDS: LACTOBACILLUS RHAMNOSUS GG 1 EACH CAP PO SCH (09:00)
[2019-03-31] MEDS: DOCUSATE SODIUM 100 MG GELCAP PO SCH (09:00)
[2019-03-31] MEDS: CARVEDILOL 6.25 MG TAB PO SCH ×2 (09:00→21:00)
[2019-03-31] MEDS: MIDAZOLAM 2 MG/2 ML VIAL ONE ×2 (11:21→11:59)
[2019-03-31] MEDS: fentaNYL 0.05 MG/ML VIAL ONE ×2 (11:21→12:02)
[2019-03-31] MEDS ORDERED: diphenhydrAMINE 50 MG/ML VIAL ONE (11:22)
[2019-03-31 11:47] LABS: HEMATOCRIT 20.4 % (36-48); MEAN CORPUSCULAR HEMOGLOBIN 32 pg (27-31); MEAN CORPUSCULAR HGB CONC 33 g/dL (33-37); MEAN CORPUSCULAR VOLUME 97.1 fL (80-94); PLATELET COUNT (AUTO) 142 K/uL (140-450); RED CELL DISTRIBUTION WIDTH 19.6 % (11.6-13.7); WHITE BLOOD COUNT (AUTO) 22.1 K/uL (4.8-10.8)
[2019-03-31] MEDS ORDERED: BUMETANIDE 1 MG/4 ML VIAL IV SCH (12:00)
[2019-03-31] MEDS ORDERED: ALBUMIN HUMAN 25% 50 ML IV ONE ×3 (12:00→12:13)
[2019-03-31] MEDS: ALBUMIN HUMAN 25% 100 ML IV SCH ×2 (12:05→12:30)
[2019-03-31 12:20] LABS: HEMOGLOBIN 6.7 g/dL (12.0-16.0)
[2019-03-31 12:23] LABS: EOSINOPHILS % (MANUAL) 6 % (0-4); LYMPHOCYTES % (MANUAL) 6 % (20-46); MONOCYTES % (MANUAL) 4 % (5-12)
[2019-03-31] MEDS ORDERED: OCTREOTIDE ACETATE 1.25 MG in NACL 0.9% 250 ML IV SCH ×2 (12:25→13:00)
[2019-03-31 12:51] LABS: ANION GAP 13.1 (8-16); CARBON DIOXIDE 20.3 mmol/L (21-32); CHLORIDE 109 mmol/L (98-107); GLUCOSE 78 mg/dL (74-106); SODIUM SERUM 140 mmol/L (136-145); UREA NITROGEN, BLOOD 26 mg/dL (7-18)
[2019-03-31 12:52] LABS: PROTHROMBIN TIME 21.2 secs (10.8-13.4)
[2019-03-31 13:00] LABS: POTASSIUM 2.4 mmol/L (3.5-5.1)
[2019-03-31] MEDS ORDERED: MAGNESIUM CITRATE 300 ML BTL PO SCH (13:00)
[2019-03-31] MEDS: MIDODRINE 5 MG TAB PO SCH ×2 (13:50→19:41)
[2019-03-31] MEDS: SENNA 8.6 MG TAB PO SCH ×2 (13:51→17:45)
[2019-03-31 16:00] VITALS: BP 98/44
[2019-03-31] MEDS ORDERED: POTASSIUM CHLORIDE 10 MEQ TABER PO SCH (16:00)
[2019-03-31] MEDS ORDERED: CALCIUM GLUCONATE 10% 1,000 MG in NACL 0.9% 100 ML IV SCH (17:00)
[2019-03-31 20:00] VITALS: BP 89/59
[2019-03-31] MEDS: LACTULOSE 20 GM/30 ML UDC PO SCH (21:00)
[2019-03-31] MEDS: CALCIUM CARB 600 MG TAB PO SCH (21:54)
[2019-04-01] VITALS (7 sets, daily range): BP systolic 93–111; BP diastolic 42–59
[2019-04-01] MEDS: MIDODRINE 5 MG TAB PO SCH ×3 (07:04→18:06)
[2019-04-01] MEDS: LACTOBACILLUS RHAMNOSUS GG 1 EACH CAP PO SCH (08:51)
[2019-04-01] MEDS: GABAPENTIN 100 MG CAP PO SCH (08:51)
[2019-04-01] MEDS: FOLIC ACID 1 MG TAB PO SCH (08:52)
[2019-04-01] MEDS: SENNA 8.6 MG TAB PO SCH (08:52)
[2019-04-01] MEDS: CALCIUM ACETATE 667 MG TAB PO SCH ×3 (08:52→18:06)
[2019-04-01] MEDS: FAMOTIDINE 20 MG TAB PO SCH ×2 (08:52→21:38)
[2019-04-01] MEDS: VIT-B COMP/VIT-C/FOLIC ACID 1 TAB PO SCH (08:52)
[2019-04-01] MEDS: CALCIUM CARB 600 MG TAB PO SCH ×2 (08:52→21:37)
[2019-04-01] MEDS: CARVEDILOL 6.25 MG TAB PO SCH (09:00)
[2019-04-01] MEDS: LACTULOSE 20 GM/30 ML UDC PO SCH ×2 (09:00→21:00)
[2019-04-01] MEDS ORDERED: PANTOPRAZOLE 40 MG INJ VIAL IVP SCH (09:00)
[2019-04-01] MEDS ORDERED: SPIRONOLACTONE 25 MG TAB PO SCH (09:00)
[2019-04-01] MEDS: LINEZOLID 600MG PREMIX 300 ML IV SCH ×2 (09:57→21:30)
[2019-04-01] MEDS ORDERED: MIDAZOLAM 2 MG/2 ML VIAL ONE ×2 (11:04)
[2019-04-01] MEDS ORDERED: fentaNYL 0.05 MG/ML VIAL ONE (11:04)
[2019-04-01] MEDS ORDERED: diphenhydrAMINE 50 MG/ML VIAL ONE (11:04)
[2019-04-01] MEDS ORDERED: SPIRONOLACTONE 50 MG TAB PO SCH (12:00)
[2019-04-01] MEDS ORDERED: fentaNYL 0.05 MG/ML VIAL IVP ONE (12:50)
[2019-04-01] MEDS ORDERED: MIDAZOLAM 2 MG/2 ML VIAL IVP ONE (12:50)
[2019-04-01 14:12] LABS: HEMATOCRIT 30.7 % (36-48); HEMOGLOBIN 10.1 g/dL (12.0-16.0); MEAN CORPUSCULAR HEMOGLOBIN 32 pg (27-31); MEAN CORPUSCULAR HGB CONC 33 g/dL (33-37); MEAN CORPUSCULAR VOLUME 96.2 fL (80-94); PLATELET COUNT (AUTO) 149 K/uL (140-450); RED BLOOD CELL COUNT(AUTO) 3.19 MIL/uL (4.20-5.40); RED CELL DISTRIBUTION WIDTH 18.2 % (11.6-13.7); WHITE BLOOD COUNT (AUTO) 24.6 K/uL (4.8-10.8)
[2019-04-01 14:24] LABS: EOSINOPHILS % (MANUAL) 5 % (0-4); LYMPHOCYTES % (MANUAL) 4 % (20-46); MONOCYTES % (MANUAL) 4 % (5-12)
[2019-04-01 14:55] LABS: ALBUMIN 2.6 g/dL (3.4-5.0); ASPARTATE AMINOTRANSFERASE 26 U/L (15-37); CARBON DIOXIDE 23.3 mmol/L (21-32); CHLORIDE 94 mmol/L (98-107); GLUCOSE 143 mg/dL (74-106); POTASSIUM 4.3 mmol/L (3.5-5.1); SODIUM SERUM 131 mmol/L (136-145); TOTAL BILIRUBIN 0.6 mg/dL (0.0-1.0); UREA NITROGEN, BLOOD 41 mg/dL (7-18)
[2019-04-01] MEDS ORDERED: ALBUMIN HUMAN 25% 100 ML IV SCH (16:02)
[2019-04-02] VITALS (7 sets, daily range): BP systolic 90–95; BP diastolic 45–54
[2019-04-02] MEDS: MIDODRINE 5 MG TAB PO SCH (07:13)
[2019-04-02] MEDS ORDERED: SPIRONOLACTONE 50 MG TAB PO SCH (09:00)
[2019-04-02] MEDS: LINEZOLID 600MG PREMIX 300 ML IV SCH (10:00)
[2019-04-02] MEDS: CALCIUM ACETATE 667 MG TAB PO SCH ×2 (10:00→13:58)
[2019-04-02] MEDS: CALCIUM CARB 600 MG TAB PO SCH (10:01)
[2019-04-02] MEDS: LACTOBACILLUS RHAMNOSUS GG 1 EACH CAP PO SCH (10:01)
[2019-04-02] MEDS: FAMOTIDINE 20 MG TAB PO SCH (10:02)
[2019-04-02] MEDS: FOLIC ACID 1 MG TAB PO SCH (10:02)
[2019-04-02] MEDS: LACTULOSE 20 GM/30 ML UDC PO SCH (11:43)
[2019-04-02] MEDS: VIT-B COMP/VIT-C/FOLIC ACID 1 TAB PO SCH (11:43)
[2019-04-02] MEDS ORDERED: MIDODRINE 5 MG TAB PO SCH (13:00)
== END 2019-04-02 18:55 | DRG 871 ==
LOC: MED 14:34 → MTU 19:52
PROVIDERS: ADMIT General Practice; ATTEND Preventive Medicine Preventive Medicine/Occupational Environmental Medicine
PROC: 0W9G3ZZ Drainage of Peritoneal Cavity, Percutaneous Approach (ICD-10-PCS; principal; 2019-03-27)
PROC: 30233N1 Transfusion of Nonautologous Red Blood Cells into Peripheral Vein, Percutaneous Approach (ICD-10-PCS; 2019-03-29)
PROC: 30233K1 Transfusion of Nonautologous Frozen Plasma into Peripheral Vein, Percutaneous Approach (ICD-10-PCS; 2019-03-31)
PROC: 0DJD8ZZ Inspection of Lower Intestinal Tract, Via Natural or Artificial Opening Endoscopic (ICD-10-PCS; 2019-03-31)
PROC: 06L38CZ Occlusion of Esophageal Vein with Extraluminal Device, Via Natural or Artificial Opening Endoscopic (ICD-10-PCS; 2019-04-02)
DX: A41.9 Sepsis, unspecified organism (principal); N17.0 Acute kidney failure with tubular necrosis; I50.43 Acute on chronic combined systolic (congestive) and diastolic (congestive) heart failure; N18.6 End stage renal disease; K57.31 Diverticulosis of large intestine without perforation or abscess with bleeding; C90.01 Multiple myeloma in remission; K76.6 Portal hypertension; N39.0 Urinary tract infection, site not specified; I13.2 Hypertensive heart and chronic kidney disease with heart failure and with stage 5 chronic kidney disease, or end stage renal disease; K62.5 Hemorrhage of anus and rectum; R18.8 Other ascites; I85.00 Esophageal varices without bleeding; M48.54XA Collapsed vertebra, not elsewhere classified, thoracic region, initial encounter for fracture; D68.9 Coagulation defect, unspecified; E44.0 Moderate protein-calorie malnutrition; Z99.2 Dependence on renal dialysis; B95.2 Enterococcus as the cause of diseases classified elsewhere; K21.9 Gastro-esophageal reflux disease without esophagitis; D63.1 Anemia in chronic kidney disease; K31.89 Other diseases of stomach and duodenum; K64.4 Residual hemorrhoidal skin tags; K64.8 Other hemorrhoids; K74.60 Unspecified cirrhosis of liver; Z16.21 Resistance to vancomycin; Z90.710 Acquired absence of both cervix and uterus; R16.1 Splenomegaly, not elsewhere classified; G62.9 Polyneuropathy, unspecified; Z68.21 Body mass index [BMI] 21.0-21.9, adult; E83.42 Hypomagnesemia
CPT/HCPCS: 36415; 49083; 71045; 74018; 76705; 80048; 80053; 81001; 82140; 82272; 83036; 83605; 83690; 83735; 83880; 84100; 84443; 84484; 85018; 85025; 85610; 85651; 85730; 86886; 86900; 86901; 86920; 87040; 87081; 87086; 87186; 92610; 93005; 96361; 96365; 96367; 97110; 97116; 97161-GP; 97530; 99285; C1758; C9113; J0610; J0696; J1200; J1956; J2001; J2020; J2250; J2354; J2543; J3010; J3370; J3475; J3480; J3490; J7030; J7060; P9016; P9017; P9046; Q0092; Q0163

== ENCOUNTER 2019-04-14 10:51 | Inpatient (IN) | payer OTHER ==
[~2019-04-14] VITALS: Ht 147.3 cm; Wt 55.3 kg
[~2019-04-14 10:51] MED LIST changes: +ERGO500028 PO; -ERGO80009 PO; +FOLI1TAB90 PO; -ZAR2.5 PO
[2019-04-14 10:56] VITALS: BP 83/52
--- NOTE | 2019-04-14 11:04 | NUR ---
Patient transferred to bed 3 via wheelchair by tech. RN evaluating patient at bedside.
--- NOTE | 2019-04-14 11:10 | NUR ---
Dr. Bartholomew evaluating patient at bedside.
--- NOTE | 2019-04-14 11:28 | NUR ---
LAB AT BEDSIDE
--- NOTE | 2019-04-14 11:41 | NUR ---
Dr. Bartholomew re-evaluating patient at bedside.
[2019-04-14 11:43] LABS: BASOPHILS # (AUTO) 0.1 K/uL (0.00-0.22); BASOPHILS % (AUTO) 0.7 % (0.0-2.0); EOSINOPHILS # (AUTO) 0.4 K/uL (0-0.4); HEMATOCRIT 23.4 % (36-48); HEMOGLOBIN 7.7 g/dL (12.0-16.0); LYMPHOCYTES # (AUTO) 1.1 K/uL (2.5-16.5); LYMPHOCYTES % (AUTO) 8.6 % (20.5-51.1); MEAN CORPUSCULAR HEMOGLOBIN 32 pg (27-31); MEAN CORPUSCULAR HGB CONC 33 g/dL (33-37); MEAN CORPUSCULAR VOLUME 97.5 fL (80-94); MONOCYTES # (AUTO) 2.2 K/uL (0.8-1.0); MONOCYTES % (AUTO) 17.4 % (1.7-9.3); NEUTROPHILS # (AUTO) 8.8 K/uL (1.8-7.7); NEUTROPHILS % (AUTO) 70.3 % (42.2-75.2); RED BLOOD CELL COUNT(AUTO) 2.39 MIL/uL (4.20-5.40); RED CELL DISTRIBUTION WIDTH 19.7 % (11.6-13.7); WHITE BLOOD COUNT (AUTO) 12.6 K/uL (4.8-10.8)
--- NOTE | 2019-04-14 11:44 | NUR ---
C/O ASCITES. PT CAREGIVER AT [facility] PT IS HERE TO RECIEVE [facility] GUIDED PARACENTESIS. ABDOMEN DISTENDED, ROUND AND HARD. PT HYPOTENSIVE, ALERT AND AWAKE. SRI LANKAN SPEAKING. BED IS DOWN, LOCKED, BED RAIL X 1, ERMD TO SEE PT. MEDHX:ESRD, HEMODIAYLSIS, CHRONIC BACK PAIN, LIVER CHIRROSIS, SPLENOMEGALY, PROTAL HTN
[2019-04-14 11:51] LABS: PLATELET COUNT (AUTO) 48 K/uL (140-450)
[2019-04-14 12:00] LABS: PROTHROMBIN TIME 13.8 secs (10.8-13.4)
--- NOTE | 2019-04-14 12:16 | NUR ---
# 14 FR Urinary catheter inserted utilizing sterile technique. Immediate return of 5 CC YELLOW urine noted. Urine sample collected and sent to lab. Pt STATES SHE DOES NOT MAKE URINE. TASK COMPLETED BY STUDENT WITH ASSISTANCE FROM INSTRUCTOR. DR ENNIS NOTIFIED
[2019-04-14] MEDS ORDERED: PIPERACILLIN/TAZOBACTAM 3.375 GM in DEXTROSE 5% 50 ML IV ONE (12:25)
[2019-04-14 12:33] LABS: ALBUMIN 2.8 g/dL (3.4-5.0); ANION GAP 17.2 (8-16); ASPARTATE AMINOTRANSFERASE 20 U/L (15-37); CARBON DIOXIDE 26.4 mmol/L (21-32); CHLORIDE 97 mmol/L (98-107); GLUCOSE 107 mg/dL (74-106); LIPASE 139 U/L (73-393); POTASSIUM 3.6 mmol/L (3.5-5.1); SODIUM SERUM 137 mmol/L (136-145); TOTAL BILIRUBIN 0.6 mg/dL (0.0-1.0); UREA NITROGEN, BLOOD 36 mg/dL (7-18)
[2019-04-14 12:36] LABS: CREATININE 5.6 mg/dL (0.6-1.3)
[2019-04-14 13:03] LABS: APPEARANCE,URINE SL CLOUDY (CLEAR); BILIRUBIN,URINE 2+ (NEGATIVE); BLOOD, URINE 1+ (NEGATIVE); COLOR,URINE YELLOW (YELLOW); LEUKOCYTE ESTERASE ,URINE TRACE (NEGATIVE); NITRITE, URINE NEGATIVE (NEGATIVE); UGLUCOSE NEGATIVE (NEGATIVE)
[2019-04-14] MEDS ORDERED: NACL 0.9% 2,000 ML IV ONE (13:05)
[2019-04-14] MEDS ORDERED: PIPERACILLIN/TAZOBACTAM 3.375 GM VIAL IV ONE (13:11)
--- NOTE | 2019-04-14 13:17 | NUR ---
PT HYPOTENSIVE AT 83/46. ALERT AND AWAKE. NACL 2,000 ML STARTED
[2019-04-14 13:19] LABS: WBC,URINE 0-5 /HPF (0-5)
--- NOTE | 2019-04-14 13:48 | NUR ---
SKIN INTACT, PT ON RENAL DIET, ABRASIONS TO PTS R WRIST AND L SIDE OF ABDOMEN
--- NOTE | 2019-04-14 13:54 | NUR ---
PT STATES HER MEDICATIONS HAVE NOT CHANGED SINCE HER LAST VISIT. PT DOES NOT KNOW MEDICATIONS BY NAME OR DOSE. HERBIE CHARLES TRANSLATED
[2019-04-14] MEDS ORDERED: HYDROcodone/APAP 5/325 MG 1 TAB TAB PO PRN (14:10)
[2019-04-14] MEDS ORDERED: DOCUSATE SODIUM 100 MG GELCAP PO PRN (14:10)
[2019-04-14] MEDS ORDERED: ACETAMINOPHEN 325 MG TAB PO PRN ×2 (14:10→17:20)
--- NOTE | 2019-04-14 14:58 | NUR ---
DOCTOR AND RESIDENTS AT BEDSIDE FOR PARACENTESIS PROSEDURE
[2019-04-14] MEDS ORDERED: ALBUMIN HUMAN 25% 50 ML IV ONE ×2 (15:00→15:51)
[2019-04-14 15:16] LABS: THYROID STIMULATING HORMONE 5.29 uIU/mL (0.34-3.74)
[2019-04-14] MEDS ORDERED: LIDOCAINE/EPI 1% 1:100000 20 ML VIAL INJ ONE (15:20)
[2019-04-14 15:50] LABS: MAGNESIUM 1.6 mg/dL (1.8-2.4)
--- NOTE | 2019-04-14 15:56 | NUR ---
PER DR ENNIS ORDER, INCREASE FLUIDS TO BOLUS TO INCREASE BP
--- NOTE | 2019-04-14 16:22 | NUR ---
DR ENNIS RE-EVALUATING PT
--- NOTE | 2019-04-14 16:50 | NUR ---
Patient will be admitted to care of PIERRE. Admited to TELE. Will go to room 106B. Belongings list completed. Report to INDIA REGALADO. NORMAL SALINE RUNNING AT 126 MLS/HR. 1,600 ML STILL RUNNING
--- NOTE | 2019-04-14 17:10 | NUR ---
PT ARRIVED ON THE UNIT THE PATIENT IS AWAKE AND TALKING PT VITALS TAKEN AWARE OF LOW BLOOD PRESSURE STATED PT IS DNR AND DOES NOT NEED TO BE IN THE ICU. WILL CONTINUE TO MONITOR THE PATIENT.
--- NOTE | 2019-04-14 17:12 | NUR ---
5,000 ML FLUID COLLECTED FROM PARACENTESIS. WALKED DIRECTLY TO LAB
[2019-04-14] MEDS ORDERED: BISACODYL 10 MG SUPP RC PRN (17:20)
[2019-04-14] MEDS: NACL 0.9% 1,000 ML IV SCH (17:48)
[2019-04-14] MEDS ORDERED: MAG SULF 2000 MG/WATER PREMIX 50 ML IV SCH (18:00)
--- NOTE | 2019-04-14 18:14 | NUR ---
ADMINISTERED MAG RIDER ON PRIMARY LINE
--- NOTE | 2019-04-14 18:31 | NUR ---
ALBUMIN 5% 150 ML BOTTLE WASTED
[2019-04-14] MEDS ORDERED: ALBUMIN HUMAN 5 % 250 ML IV ONE (18:47)
--- NOTE | 2019-04-14 19:43 | NUR ---
ENDORSED PT TO PM RN PT AWAKE IN BED. PT SON AT BEDSIDE. MAG RIDER RUNNING 2LBOLUS FROM ER STILL INFUSING AT 126ML/HR. DR. LOPEZ AWARE. IV SITE PATENT
--- NOTE | 2019-04-14 19:44 | NUR ---
RECEIVED PT FROM [facility] FABRICIO OSBORNE. A/O X4. PERSON, PLACE, TIME AND EVENT. DISCUSSED PLAN OF CARE. VERBALIZED UNDERSTANDING. ABLE TO MAKE NEEDS KNOWN. NO SIGNS OF DISTRESS. ROOM AIR. IV RIGHT FA 22G INFUSING NS BOLUS AND MAG. IV STOPPED DUE TO INFILTRATION. WILL INSERT NEW IV. L ARM AV SHUNT SIGN POSTED ABOVE PT BED. SKIN INTACT. UNABLE TO AMBULATE. INCONTINENT. PT WHEELCHAIR AT BEDSIDE. EDEMA +2 BILATERAL LOWER EXTREMITIES. FALL PREC IN PLACE. FAMILY AT BEDSIDE. WILL CONTINUE TO MONITOR.
--- NOTE | 2019-04-14 19:44 | NUR ---
IV INFILTRATION. IV SITE REMOVED. TOLERATED WELL. NO SIGNS OF DISTRESS. AND WILL INSERT NEW IV.
[2019-04-14 20:00] VITALS: BP 85/37
--- NOTE | 2019-04-14 20:30 | NUR ---
NEW IV SITE AT RIGHT HAND 22G. TOLERATED WELL. NO SIGNS OF DISTRESS. WILL CONTINUE TO MONITOR.
[2019-04-14] MEDS ORDERED: DOCUSATE SODIUM 100 MG GELCAP PO SCH (21:00)
[2019-04-14] MEDS: PIPERACILLIN/TAZOBACTAM 2.25 GM in DEXTROSE 5% 50 ML IV SCH (21:15)
--- NOTE | 2019-04-14 21:17 | NUR ---
ADMINISTERED IVPB ANTIBIOTICS. EDUCATED ON SIDE EFFECTS. VERBALIZED UNDERSTANDING. TOLERATED WELL. WILL CONTINUE TO MONITOR.
--- NOTE | 2019-04-14 23:07 | NUR ---
PT IS SLEEPING IN BED. EASILY AROUSABLE. ABLE TO MAKE NEEDS KNOWN. BED IN LOWEST POSITION. CALL LIGHT WITHIN REACH. WILL CONTINUE TO MONITOR.
[2019-04-15] VITALS: BP 83/50
--- NOTE | 2019-04-15 00:35 | NUR ---
SON AT BEDSIDE
--- NOTE | 2019-04-15 02:00 | NUR ---
PT MOVED TO ROOM 114 BED A
--- NOTE | 2019-04-15 03:41 | NUR ---
PT SLEEPING IN BED. EASILY AROUSABLE. EVEN UNLABORED CHEST RISE. NO SIGNS OF DISTRESS. CALL LIGHT WITHIN REACH. WILL CONTINUE TO MONITOR.
[2019-04-15 04:00] VITALS: BP 80/48
[2019-04-15] MEDS: PIPERACILLIN/TAZOBACTAM 2.25 GM in DEXTROSE 5% 50 ML IV SCH ×3 (04:30→21:30)
--- NOTE | 2019-04-15 05:20 | NUR ---
CONTACT PREC FOR HX VRE URINE. PPE AVAILABLE BEFORE ENTERING ROOM
[2019-04-15] MEDS: PANTOPRAZOLE 40 MG TABEC PO SCH (06:06)
--- NOTE | 2019-04-15 06:07 | NUR ---
WILL ENDORSE PT TO DAYSHIFT RN. PT IN STABLE CONDITION. NO SIGNS OF DISTRESS. WILL CONTINUE TO MONITOR.
[2019-04-15 07:06] LABS: MEAN CORPUSCULAR HEMOGLOBIN 33 pg (27-31); MEAN CORPUSCULAR HGB CONC 34 g/dL (33-37); MEAN CORPUSCULAR VOLUME 96.8 fL (80-94); RED BLOOD CELL COUNT(AUTO) 1.93 MIL/uL (4.20-5.40); RED CELL DISTRIBUTION WIDTH 19.4 % (11.6-13.7)
[2019-04-15 07:28] LABS: ANION GAP 14.7 (8-16); CARBON DIOXIDE 25.8 mmol/L (21-32); CHLORIDE 101 mmol/L (98-107); GLUCOSE 94 mg/dL (74-106); POTASSIUM 3.5 mmol/L (3.5-5.1); SODIUM SERUM 138 mmol/L (136-145); UREA NITROGEN, BLOOD 41 mg/dL (7-18)
[2019-04-15 07:33] LABS: CREATININE 5.7 mg/dL (0.6-1.3)
[2019-04-15 07:40] LABS: MAGNESIUM 2.2 mg/dL (1.8-2.4)
[2019-04-15 07:41] LABS: CHOL/HDL RATIO 3.6 (1-4.5)
--- NOTE | 2019-04-15 07:42 | NUR ---
RECEIVED HAND OFF REPORT FROM PM RN PT ASLEEP IN BED NOTABLE CHEST RISE AND FALL. IVF INFUSING ALL SAFETY MEASURES ARE IN PLACE WILL CONTINUE TO MONITOR.
[2019-04-15] MEDS ORDERED: CALCIUM ACETATE 667 MG TAB PO SCH (08:00)
[2019-04-15 08:02] LABS: HEMOGLOBIN 6.4 g/dL (12.0-16.0)
[2019-04-15 08:03] LABS: HEMATOCRIT 18.6 % (36-48); PLATELET COUNT (AUTO) 40 K/uL (140-450)
[2019-04-15 08:04] LABS: EOSINOPHILS % (MANUAL) 4 % (0-4); LYMPHOCYTES % (MANUAL) 3 % (20-46); MONOCYTES % (MANUAL) 10 % (5-12)
[2019-04-15 08:15] VITALS: BP 95/43
--- NOTE | 2019-04-15 08:20 | NUR ---
PATIENT HAS BEEN SCREENED AND CATEGORIZED HIGH NUTRITION RISK. PATIENT WILL BE SEEN WITHIN 1-2 DAYS OF ADMISSION. 04/15/19-04/16/[address]
[2019-04-15] MEDS: VIT-B COMP/VIT-C/FOLIC ACID 1 TAB PO SCH (08:58)
[2019-04-15] MEDS: CARVEDILOL 6.25 MG TAB PO SCH (08:58)
[2019-04-15] MEDS: LACTOBACILLUS RHAMNOSUS GG 1 EACH CAP PO SCH (08:58)
[2019-04-15] MEDS: FOLIC ACID 1 MG TAB PO SCH (08:58)
[2019-04-15] MEDS ORDERED: FAMOTIDINE 20 MG TAB PO SCH (09:00)
--- NOTE | 2019-04-15 09:36 | NUR ---
FREQUENT ROUNDING ON PT PT APPEARS STABLE AND IN NO APPARENT DISTRESS. WILL CONTINUE TO MONITOR FAMILY AT BEDSIDE
[2019-04-15 12:15] VITALS: BP 90/40
--- NOTE | 2019-04-15 13:16 | NUR ---
OBTAINED CONSENT FOR BLOOD TRANSFUSION SPOKE WITH PATIENTS SON EARLIER AT BEDSIDE ABOUT POSSIBLE TRANSFUSION. PT AWARE AND UNDERSTANDS. GAVE PATIENT A COPY OF THE INSTRUCTIONS.
--- NOTE | 2019-04-15 13:52 | NUR ---
JOVANA HOLLIS ANTIBIOTIC. SCANNER NOT SCANNING. BUNNY WHALEY PIGGYBACK. PT AWAKE IN BED. PT APPEARS STABLE AND IN NO APPARENT DISTRESS. WILL CONTINUE TO MONITOR
--- NOTE | 2019-04-15 14:35 | NUR ---
04/15/19 RD INITIAL ASSESSMENT COMPLETED PLEASE REFER TO NUTRITION ASSESSMENT UNDER CARE ACTIVITY FOR ESTIMATED NUTRITIONAL NEEDS. 1. CONTINUE NPO MEDICALLY NECESSARY 2. IF/WHEN PT IS MEDICALLY STABLE CONSIDER ADVANCING TO A RENAL DIET WITH FLUID RESTRICTION 3. IF PO INTAKE FALLS BELOW 75% RECOMMEND NEPRO BID 4. RD TO FOLLOW-UP 3-5 DAYS, MODERATE RISK AIDAN HIGGINS, RD
[2019-04-15 16:00] VITALS: BP 89/64
--- NOTE | 2019-04-15 16:00 | NUR ---
DIALYSIS NURSE AT BEDSIDE ABOUT TO START.
[2019-04-15] MEDS: NACL 0.9% 1,000 ML IV SCH (17:25)
--- NOTE | 2019-04-15 18:50 | NUR ---
FREQUENT ROUNDING ON PT PT APPEARS STABLE AND IN NO APPARENT DISTRESS. ALL SAFETY MEASURES ARE IN PLACE WILL CONTINUE TO MONITOR.
--- NOTE | 2019-04-15 19:26 | NUR ---
endorsed pt to pm rn pt stable dialysis nurse at bedside
--- NOTE | 2019-04-15 19:27 | NUR ---
RECEIVED BEDSIDE REPORT FROM SHASHA OSBORNE. PT A/O X4. PERSON PLACE TIME AND EVENT. AZERBAIJANI SPEAKING. DISCUSSED PLAN OF CARE. VERBALIZED UNDERSTANDING. ABLE TO MAKE NEEDS KNOWN. NO SIGNS OF DISTRESS. ROOM AIR. SKIN INTACT. IV R HAND 22G. INFUSING NS @5. PATENT AND INTACT. INCONTINENT. BED REST. FALL PREC IN PLACE. CONTACT PREC. BED IN LOWEST POSITION. CALL LIGHT WITHIN REACH. WILL CONTINUE TO MONITOR.
[2019-04-15 20:00] VITALS: BP 89/50
[2019-04-15 20:30] LABS: T4 (THYROXINE) 4.3 ug/dL (4.5 - 12.0)
[2019-04-15] MEDS ORDERED: SIMETHICONE 80 MG TAB.CHEW PO PRN (21:30)
--- NOTE | 2019-04-15 21:30 | NUR ---
MADE MD AWARE OF HYPOTENSION. MD SAYS TO CONTINUE TO MONITOR BP. MD INCREASED NS FLUIDS TO 10ML/HR TKO.
[2019-04-15] MEDS: GABAPENTIN 100 MG CAP PO SCH (21:43)
--- NOTE | 2019-04-15 22:06 | NUR ---
REQUESTED SANDWICH. ABLE TO SWALLOW. NO ASSIST NEEDED FOR FEEDING. NO SIGNS OF DISTRESS. TOLERATED WELL. WILL CONTINUE TO MONITOR.
[2019-04-16] VITALS: BP 86/47
--- NOTE | 2019-04-16 | NUR ---
VITALS ARE WNL. BLOOD PRESSURE REMAINS CONSTANTLY LOW. NO SIGNS OF DISTRESS. EVEN UNLABORED BREATHS. WILL CONTINUE TO MONITOR.
--- NOTE | 2019-04-16 01:35 | NUR ---
PT IS SLEEPING IN BED. EASILY AROUSABLE. ABLE TO MAKE NEEDS KNOWN. BED IN LOWEST POSITION. CALL LIGHT WITHIN REACH. NO COMPLAINTS AT THIS TIME. WILL CONTINUE TO MONITOR.
--- NOTE | 2019-04-16 02:51 | NUR ---
PT SLEEPING NO SIGNS OF DISTRESS. NO PAIN REPORTED. EVEN UNLABORED BREATHS. WILL CONTINUE TO MONITOR.
[2019-04-16 04:00] VITALS: BP 90/48
--- NOTE | 2019-04-16 04:59 | NUR ---
PT SLEEPING. NO SIGNS OF RESP DISTRESS. NO PAIN NOTED. ABLE TO MAKE NEEDS KNOWN. BED IN LOWEST POSITION. CALL LIGHT WITHIN REACH. WILL CONTINUE TO MONITOR.
[2019-04-16] MEDS: PIPERACILLIN/TAZOBACTAM 2.25 GM in DEXTROSE 5% 50 ML IV SCH (05:01)
[2019-04-16] MEDS ORDERED: diphenhydrAMINE 50 MG/ML VIAL IVP PRN (05:15)
[2019-04-16] MEDS: PANTOPRAZOLE 40 MG TABEC PO SCH (05:41)
--- NOTE | 2019-04-16 05:50 | NUR ---
PT REQUESTED BENADRYL FOR ITCHING. EDUCATED ON SIDE EFFECTS. VERBALIZED UNDERSTANDING. TOLERATED WELL. WILL CONTINUE TO MONITOR.
--- NOTE | 2019-04-16 06:12 | NUR ---
WILL ENDORSE PT TO DAYSHIFT RN. PT IN STABLE CONDITION. NO SIGNS OF DISTRESS. ABLE TO MAKE NEEDS KNOWN. BED IN LOWEST POSITION. CALL LIGHT WITHIN REACH.
[2019-04-16 06:44] LABS: ANION GAP 10.1 (8-16); CARBON DIOXIDE 30.1 mmol/L (21-32); CHLORIDE 104 mmol/L (98-107); GLUCOSE 104 mg/dL (74-106); POTASSIUM 3.2 mmol/L (3.5-5.1); SODIUM SERUM 141 mmol/L (136-145); UREA NITROGEN, BLOOD 22 mg/dL (7-18)
[2019-04-16 06:49] LABS: MAGNESIUM 1.7 mg/dL (1.8-2.4); PHOSPHORUS 2.4 mg/dL (2.5-4.9)
--- NOTE | 2019-04-16 07:25 | NUR ---
RECEIVED PT FROM COLLISION MECHANIC NURSEDARIUS, PT IS ASLEEP AND LYING ON THE BED WITH SIDE RAILS UP AND CALL LIGHT WITHIN REACH, IV LINE ON THE RT HAND G. 22 WITH NS INFUSING AT 10ML/HR, PT HAS A LEFT AV SHUNT IN PLACE FOR HEMODIALYSIS, RESPIRATION IS EVEN AND NO SIGN OF DISTRESS NOTED, PT DENIES PAIN. WILL MONITOR PT.
[2019-04-16 07:52] LABS: BASOPHILS # (AUTO) 0.2 K/uL (0.00-0.22); EOSINOPHILS # (AUTO) 0.3 K/uL (0-0.4); HEMATOCRIT 23.9 % (36-48); HEMOGLOBIN 8.1 g/dL (12.0-16.0); LYMPHOCYTES % (AUTO) 6.9 % (20.5-51.1); MEAN CORPUSCULAR HEMOGLOBIN 31 pg (27-31); MEAN CORPUSCULAR HGB CONC 34 g/dL (33-37); MEAN CORPUSCULAR VOLUME 92.8 fL (80-94); MONOCYTES # (AUTO) 3.2 K/uL (0.8-1.0); MONOCYTES % (AUTO) 22.2 % (1.7-9.3); NEUTROPHILS # (AUTO) 9.9 K/uL (1.8-7.7); NEUTROPHILS % (AUTO) 67.9 % (42.2-75.2); PLATELET COUNT (AUTO) 35 K/uL (140-450); RED BLOOD CELL COUNT(AUTO) 2.58 MIL/uL (4.20-5.40); RED CELL DISTRIBUTION WIDTH 19.5 % (11.6-13.7); WHITE BLOOD COUNT (AUTO) 14.6 K/uL (4.8-10.8)
[2019-04-16 08:04] VITALS: BP 95/53
--- NOTE | 2019-04-16 08:24 | NUR ---
INFORMED DR. LOPEZ OF PT'S K LEVEL OF 3.2 AND MG LEVEL OF 1.7, MD WILL PLACE AN ORDER.
[2019-04-16] MEDS: CARVEDILOL 6.25 MG TAB PO SCH (09:00)
[2019-04-16] MEDS: FOLIC ACID 1 MG TAB PO SCH (09:17)
[2019-04-16] MEDS: LACTOBACILLUS RHAMNOSUS GG 1 EACH CAP PO SCH (09:17)
[2019-04-16] MEDS: VIT-B COMP/VIT-C/FOLIC ACID 1 TAB PO SCH (09:18)
--- NOTE | 2019-04-16 09:18 | NUR ---
PT IS AWAKE AND EATING HER BREAKFAST, ORAL AND IVPB MEDICATIONS WERE GIVEN, BP MEDICATION WAS NOT GIVEN BECAUSE BP IS 93/58 AND PULSE IS 89, PT TOLERATED THE MEDICATIONS. NO SIGN OF DISTRESS NOTED AND WILL MONITOR PT.
[2019-04-16] MEDS ORDERED: MAG SULF 2000 MG/WATER PREMIX 50 ML IV SCH (10:00)
--- NOTE | 2019-04-16 10:51 | NUR ---
PT IS AWAKE AND LYING ON THE BED, MAGNESIUM SULFATE IV WAS STARTED NOW FOR MG LEVEL OF 1.7, WILL MONITOR PT.
[2019-04-16 12:00] VITALS: BP 91/42
--- NOTE | 2019-04-16 12:02 | NUR ---
SWALLOW EVALUATION IS BEING DONE TO PT NOW.
--- NOTE | 2019-04-16 12:04 | NUR ---
INORGANIC CHEMISTRY PROFESSOR note [id number] Bedside swallow evaluation completed, please see report for details. INORGANIC CHEMISTRY PROFESSOR provided pt with education regarding purpose of evaluation and rationale for recommendations. Pt verbalized agreement with recommendations at this time. No family present. Recommend: 1) regular textures 2) thin liquids 3) general aspiration precautions (including pt must be fully awake/alert/upright for any PO intakes, stop PO if pt becomes less alert/SOB/coughing) 4) no further INORGANIC CHEMISTRY PROFESSOR intervention indicated at this time. Physician may reorder if further concerns arise, as appropriate. INORGANIC CHEMISTRY PROFESSOR d/w RN (Ann Marie) prior to and following bedside swallow evaluation completion. G-codes: [id number] REESE NOMS level 7
[2019-04-16 16:00] VITALS: BP 90/46
[2019-04-16] MEDS: NACL 0.9% 1,000 ML IV SCH (17:25)
--- NOTE | 2019-04-16 19:25 | NUR ---
RECEIVED FROM AM RN IN BED SLEEPING. ABLE TO WAKE UP WHEN TOUCHED OR CALLED BY NAME. NO COMPLAINTS DONE. TELEMETRY MONITORING. CALL LIGHT WITH IN REACH. IVF SITE TO RIGHT FOREARM #22 INTACT. NO INFILTRATION NOTED. GOOD BLOOD RETURN.
--- NOTE | 2019-04-16 19:25 | NUR ---
ENDORSED PT TO EDITORIAL DIRECTOR NURSETHEODORE FOR CONTINUITY OF CARE.
[2019-04-16 20:00] VITALS: BP 92/50
[2019-04-16] MEDS: GABAPENTIN 100 MG CAP PO SCH (20:33)
--- NOTE | 2019-04-16 20:35 | NUR ---
TOLERATED P.O. MEDICATION WELL. NO COMPLAINTS OF ANY PAIN DONE AT THIS TIME. ABLE TO VERBALIZE SIMPLE NEEDS WELL. CALL LIGHT WITH IN REACH. ENCOURAGED TO CALL MATT CAIY HELP SHE MAY NEED. "OK"
--- NOTE | 2019-04-16 22:00 | NUR ---
PT. TURNED TO SIDES BY BIOMETRIC FINGERPRINTING TECHNICIAN . PILLOW SUPPORT TO PRESSURE AREAS. ENCOURAGED TO STAY ON SIDE TURNED. "OK"
[2019-04-17 00:21] VITALS: BP 94/48
--- NOTE | 2019-04-17 00:26 | NUR ---
SLEEPING. WOKE UP EASILY WHEN TOUCHED. NO COMPLAINTS DONE. TURNED BY CHRONOGRAPH OPERATOR Q2H. PILLOW SUPPORT TO PRESSURE AREAS.
--- NOTE | 2019-04-17 02:30 | NUR ---
SLEEPING. NO RESTLESSNESS. CALL LIGHT AT HER SIDE WITH IN REACH.
[2019-04-17 04:44] VITALS: BP 96/50
--- NOTE | 2019-04-17 04:54 | NUR ---
PT. AM PERSONAL HYGIENE RENDERED BY CNAS . TURNED TO SIDES WITH PILLOW SUPPORT TO PRESSURE AREAS. NO COMPLAINTS DONE. PT. ABLE TO VERBALIZE SIMPLE NEEDS. CALL LIGHT WITH IN REACH.
[2019-04-17] MEDS: PANTOPRAZOLE 40 MG TABEC PO SCH (06:01)
--- NOTE | 2019-04-17 06:22 | NUR ---
PT. AT THIS TIME SLEEPING. WAKES UP EASILY WHEN TOUCHED. NO COMPLAINTS DONE. TELEMETRY MONITORING. WILL ENDORSE TO AM RN FOR CONTINUITY OF CARE.
[2019-04-17 07:14] LABS: HEMATOCRIT 25.5 % (36-48); HEMOGLOBIN 8.6 g/dL (12.0-16.0); MEAN CORPUSCULAR HEMOGLOBIN 31 pg (27-31); MEAN CORPUSCULAR HGB CONC 34 g/dL (33-37); MEAN CORPUSCULAR VOLUME 92.1 fL (80-94); PLATELET COUNT (AUTO) 41 K/uL (140-450); RED BLOOD CELL COUNT(AUTO) 2.77 MIL/uL (4.20-5.40); RED CELL DISTRIBUTION WIDTH 19.1 % (11.6-13.7); WHITE BLOOD COUNT (AUTO) 17.5 K/uL (4.8-10.8)
--- NOTE | 2019-04-17 07:15 | NUR ---
RECEIVED PT FROM WARRANT CLERK NURSETHEODORE, PT IS AWAKE AND LYING ON THE BED WITH IV LINE ON THE RT HAND G. 22 WITH NS INFUSING AT 10ML/HR, HAS A LEFT AV SHUNT IN PLACE, SIDE RAILS ARE UP AND CALL LIGHT WITHIN REACH, SAFETY AND FALL PRECAUTION INITIATED. NO SIGN OF DISTRESS NOTED AND WILL MONITOR PT.
[2019-04-17 07:45] VITALS: BP 93/46
[2019-04-17 08:11] LABS: MAGNESIUM 2.2 mg/dL (1.8-2.4); PHOSPHORUS 2.1 mg/dL (2.5-4.9)
[2019-04-17 08:14] LABS: ANION GAP 13.1 (8-16); CARBON DIOXIDE 27.2 mmol/L (21-32); CHLORIDE 102 mmol/L (98-107); GLUCOSE 101 mg/dL (74-106); POTASSIUM 3.3 mmol/L (3.5-5.1); SODIUM SERUM 139 mmol/L (136-145); UREA NITROGEN, BLOOD 25 mg/dL (7-18)
[2019-04-17 08:27] LABS: CREATININE 5.3 mg/dL (0.6-1.3)
[2019-04-17] MEDS: FOLIC ACID 1 MG TAB PO SCH (08:40)
[2019-04-17] MEDS: LACTOBACILLUS RHAMNOSUS GG 1 EACH CAP PO SCH (08:40)
[2019-04-17] MEDS: VIT-B COMP/VIT-C/FOLIC ACID 1 TAB PO SCH (08:40)
--- NOTE | 2019-04-17 08:40 | NUR ---
PT IS AWAKE AND LYING ON THE BED, ORAL AND IVPB MEDICATIONS WERE GIVEN AND PT TOLERATED IT. BP MEDICATION WAS HELD PER PARAMETER BP IS 88/44, PULSE IS 91 O2 SATURATION IS 98%. NO SIGN OF DISTRESS NOTED. WILL MONITOR PT.
[2019-04-17] MEDS: CARVEDILOL 6.25 MG TAB PO SCH (08:41)
[2019-04-17 09:39] LABS: BASOPHILS % (MANUAL) 0 % (0-2); EOSINOPHILS % (MANUAL) 1 % (0-4); LYMPHOCYTES % (MANUAL) 6 % (20-46); MONOCYTES % (MANUAL) 26 % (5-12)
--- NOTE | 2019-04-17 10:15 | NUR ---
DR. MORELAND CAME TO THE PT'S ROOM AND MADE A VERBAL ORDER TO INCREASE THE RATE OF NS TO 75ML/HR.
[2019-04-17 12:00] VITALS: BP 106/53
--- NOTE | 2019-04-17 13:50 | NUR ---
PT WAS REPOSITIONED AND CLEANED NOW.
--- NOTE | 2019-04-17 13:59 | NUR ---
CALLED DR. LOPEZ AND INFORMED OF THE PT'S K LEVEL OF 3.3, SAID THAT HE WILL PLACE AN ORDER.
[2019-04-17] MEDS: MIDODRINE 5 MG TAB PO SCH ×2 (14:02→18:29)
--- NOTE | 2019-04-17 14:02 | NUR ---
PT IS AWAKE AND LYING ON THE BED, ORAL MEDICATION WAS GIVEN AND PT TOLERATED IT. WILL MONITOR PT.
[2019-04-17 16:00] VITALS: BP 92/47
[2019-04-17] MEDS: NACL 0.9% 1,000 ML IV SCH (18:29)
--- NOTE | 2019-04-17 19:15 | NUR ---
ENDORSED PT TO SCRAPPER NURSE FOR CONTINUITY OF CARE.
--- NOTE | 2019-04-17 19:20 | NUR ---
RECEIVED FROM AM RN IN BED SLEEPING AT THIS TIME. CALL LIGHT WITH IN REACH. PT. IS TOTAL CARE AND NEEDS WILL BE ANTICIPATED. IVF SITE INTACT AND NO INFILTRATION. PT. ABLE TO VERBALIZE SIMPLE NEEDS IN MONTSERRATIAN. WILL CONTINUE WITH CARE FOR THE NIGHT.
[2019-04-17] MEDS: GABAPENTIN 100 MG CAP PO SCH (20:44)
--- NOTE | 2019-04-17 21:00 | NUR ---
PT. ABLE TO SWALLOW P.O. MEDICATION WELL. NO COMPLAINTS DONE.
--- NOTE | 2019-04-17 23:35 | NUR ---
PT. TURNED Q 2H. PILLOW SUPPORT TO PRESSURE AREAS. ENCOURAGED TO STAY ON TURNED SIDE.
[2019-04-18] VITALS (10 sets, daily range): BP systolic 79–94; BP diastolic 39–58
--- NOTE | 2019-04-18 00:16 | NUR ---
PT. SLEEPING . WOKE UP EASILY WHEN VITAL SIGNS TAKEN. ABLE TO VERBALIZE NEEDS WELL IN FIJIAN. NEEDS ANTICIPATED AND WILL BE MET. TOTAL CARE.
--- NOTE | 2019-04-18 01:30 | NUR ---
PT. SLEEPING WELL. WAKES UP WHEN CALLED BY NAME. NO COMPLAINTS DONE.
--- NOTE | 2019-04-18 05:35 | NUR ---
INFORMED RESIDENT MD THAT PROTECTIVE PADS PLACED ON PT. ( PER PERSONAL FITNESS TRAINER PARACENTESIS SITE ) IS SOAKED WITH FLUID W/C WE CAN NOT IDENTIFY IF IT IS FLUID FROM SITE OR URINE. PT IS HD PT. PER PERSONAL FITNESS TRAINER PARACENTESIS SITE IS OOZING WITH FLUID STILL. INSPECTED AND IT IS OOZING FROM THAT SITE. RESIDENT MD WENT IN EARLIER TO CHECK ON IT. NO ORDERS GIVEN . DRESSING PLACED ON IT.
[2019-04-18] MEDS: MIDODRINE 5 MG TAB PO SCH ×3 (06:42→18:32)
[2019-04-18] MEDS: PANTOPRAZOLE 40 MG TABEC PO SCH (06:42)
--- NOTE | 2019-04-18 06:44 | NUR ---
PT. TOOK ALL P.O. AM MEDICATIONS WELL. NO ASPIRATION S/S NOTED. ABLE TO VERBALIZE SIMPLE NEEDS IN [place]. NEEDS ANTICIPATED AND MET. TOTAL CARE RT WEAKNESS. WILL ENDORSE TO AM RN FOR CONTINUITY OF CARE. IVF SITE INTACT AND NO INFILTRATION.
[2019-04-18 06:51] LABS: ANION GAP 10.9 (8-16); CARBON DIOXIDE 26.3 mmol/L (21-32); CHLORIDE 101 mmol/L (98-107); GLUCOSE 102 mg/dL (74-106); POTASSIUM 3.2 mmol/L (3.5-5.1); SODIUM SERUM 135 mmol/L (136-145); UREA NITROGEN, BLOOD 29 mg/dL (7-18)
[2019-04-18 06:56] LABS: MAGNESIUM 1.9 mg/dL (1.8-2.4); PHOSPHORUS 1.7 mg/dL (2.5-4.9)
[2019-04-18 07:20] LABS: HEMATOCRIT 24.6 % (36-48); HEMOGLOBIN 8.2 g/dL (12.0-16.0); MEAN CORPUSCULAR HEMOGLOBIN 31 pg (27-31); MEAN CORPUSCULAR HGB CONC 33 g/dL (33-37); MEAN CORPUSCULAR VOLUME 92.3 fL (80-94); RED BLOOD CELL COUNT(AUTO) 2.66 MIL/uL (4.20-5.40); RED CELL DISTRIBUTION WIDTH 19.4 % (11.6-13.7)
--- NOTE | 2019-04-18 07:28 | NUR ---
REPORT RECEIVED FROM RN SURGICAL, PT AWAKE ALERT, RESP EVEN UNLABORED, PT DENIES ANY PAIN OR DISCOMFORT, POC REVIEWED, NO IMMEDIATE NEEDS AT THIS TIME, WILL CONTINUE TO MONTIOR
[2019-04-18 07:43] LABS: CREATININE 6.3 mg/dL (0.6-1.3)
[2019-04-18 07:44] LABS: WHITE BLOOD COUNT (AUTO) 26.8 K/uL (4.8-10.8)
--- NOTE | 2019-04-18 08:34 | NUR ---
DR LOPEZ MADE AWARE OF LOW BP 78/49, PT AWAKE ALERT, DENIES PAIN OR DISCOMFORT, IVF INFUSING WELL, SITE WNL, WILL CONTINUE TO MONITOR.
[2019-04-18] MEDS: CARVEDILOL 6.25 MG TAB PO SCH (08:42)
[2019-04-18] MEDS: LACTOBACILLUS RHAMNOSUS GG 1 EACH CAP PO SCH (08:55)
[2019-04-18] MEDS: FOLIC ACID 1 MG TAB PO SCH (08:55)
[2019-04-18] MEDS: VIT-B COMP/VIT-C/FOLIC ACID 1 TAB PO SCH (08:56)
[2019-04-18 09:01] LABS: EOSINOPHILS % (MANUAL) 1 % (0-4); LYMPHOCYTES % (MANUAL) 6 % (20-46); MONOCYTES % (MANUAL) 21 % (5-12)
[2019-04-18 09:02] LABS: BASOPHILS % (MANUAL) 0 % (0-2); MYELOCYTES % 1 % (0-0)
[2019-04-18 09:04] LABS: PLATELET COUNT (AUTO) 56 K/uL (140-450)
--- NOTE | 2019-04-18 09:27 | NUR ---
AM MEDS GIVEN, PT STEPHAN PILLS WELL, COREG HELD FOR LOW BP, PERICARE DONE, SOFT BMX1, RIGHT LOWER ABD LEAKING FLUID FROM PARACENTHESIS SITE, MD AWARE. SON AT BEDSIDE, POC REVIEWED.
--- NOTE | 2019-04-18 10:01 | NUR ---
DR MORELAND AT BEDSIDE, REGULAR DIET STARTING LUNCH PER DR MORELAND, DC RENAL DIET.
[2019-04-18] MEDS: NACL 0.9% 1,000 ML IV SCH ×2 (10:39→23:06)
[2019-04-18 11:07] LABS: ALBUMIN 1.9 g/dL (3.4-5.0); BILIRUBIN,DIRECT 0.2 mg/dL (0.0-0.3); TOTAL BILIRUBIN 0.5 mg/dL (0.0-1.0)
[2019-04-18] MEDS ORDERED: NACL 0.9% 500 ML IV SCH ×2 (11:50→17:00)
--- NOTE | 2019-04-18 11:54 | NUR ---
BP 77/39, PT SLEEPING BUT AROUSABLE, STATES FEELS DIZZY, DR DU NOTIFIED, NS BOLUS ORDERED, 500ML BOLUS STARTED AND WILL GIVE 1300 DOSE OF MIDODRINE NOW
[2019-04-18] MEDS ORDERED: PIPERACILLIN/TAZOBACTAM 3.375 GM in DEXTROSE 5% 50 ML IV SCH (12:00)
[2019-04-18] MEDS: PIPERACILLIN/TAZOBACTAM 2.25 GM in DEXTROSE 5% 50 ML IV SCH ×2 (13:00→21:00)
[2019-04-18] MEDS ORDERED: ALBUMIN HUMAN 25% 50 ML IV SCH ×2 (14:15→17:00)
--- NOTE | 2019-04-18 15:30 | NUR ---
250ML YELLOW FLUID COLLECTED FROM PREVIOUS PARACENTHESIS SITE, SPECIMEN SENT TO LAB
--- NOTE | 2019-04-18 16:00 | NUR ---
BP 88/56 DR DU AWARE, NO NEW ORDERS, ALBUMIN INFUSING,
--- NOTE | 2019-04-18 17:20 | NUR ---
DR GUILLORY AT BEDSIDE
--- NOTE | 2019-04-18 17:50 | NUR ---
PT TAKEN TO ICU PER ORDER, PT SLEEPY BUT AROUSABLE, ALBUMIN INFUSING CONTINUES, DENIES PAIN OR DISCOMFORT, REPORT GIVEN TO JUAN REGALADO, ALL BELONGINGS AND WHEELCHAIR TAKEN WITH PT.
--- NOTE | 2019-04-18 18:00 | NUR ---
RECEIVED PATIENT AWAKE ALERT ORIENTED AND CITIZEN OF [place] SPEAKING. PARKING OFFICER HERE POULTRY PROCESSING SUPERVISOR. ON ROOM AIR NO SIGNS OF RESPIRATORY DISTRESS SO2 97%, COMPLAINTS OF PAIN. SINUS RHYTHM ON MONITOR, ALBUMIN 50 ML INFUSING AT RIGHT HAND PERIPHERAL IV LINE, SOFT ABDOMEN, WITH OSTOMY BAG ATTACHED TO RIGHT SIDE OF ABDOMEN DRAINING CLEAR YELLOW OUTPUT FROM PREVIOUS PARACENTESIS PUNCTURE SITE, SKIN INTACT, MILD BLANCHABLE REDNESS IN PERINEAL AND SACRAL AREA, LEFT ARM FISTULA WITH BRUIT AND THRILL ON AUSCULTATION RECEIVED REPORT FROM PARKING OFFICER AND ACCORDING HER PATIENT'S FAMILY AWARE OF TRANSFER. NO VALUABLES AT BEDSIDE
--- NOTE | 2019-04-18 18:24 | NUR ---
INFORMED PATIENT'S LAST MODEL DEPARTMENT SUPERVISOR TO FILL OUT INTAKE OUTPUT AND NUTRITION INTERVENTION FOR HER ASSESSMENT WHEN THE PATIENT WAS UNDER HER CARE
[2019-04-18] MEDS: HYDROCORTISONE NA SUCC 100 MG/2 ML VIAL IV SCH (18:32)
--- NOTE | 2019-04-18 19:20 | NUR ---
REPORT GIVEN TO NIGHT RN
--- NOTE | 2019-04-18 19:30 | NUR ---
RECEIVED REPORT FROM MORNING RNJUAN, FOR CONTINUITY OF CARE. PT AWAKE, ALERT AND ORIENTED. AZERI SPEAKING. ABLE TO MAKE NEEDS KNOWN. AFEBRILE. DENIES PAIN AT THIS TIME. LUNG SOUNDS CLEAR. PT IN ROOM AIR. RESPIRATIONS EVEN AND UNLABORED. CHEST RISE SYMMETRIC. SR ON MONITOR. BP LOW AT THIS TIME AND MD AWARE. PULSES PALPABLE IN ALL EXTREMITIES. ABDOMEN ROUND AND SOFT. BS ACTIVE IN ALL QUADRANTS. PT HAS A COLLECTION BAG ON RIGHT LOWER ABD FILLED WITH LIGHT YELLOW LIQUID THAT IS CLOUDY. COLLECTION BAG OVER THE SITE OF PARACENTESIS. PT HAS HEMODIALYSIS SITE ON LEFT UPPER ARM. NO URINE OUTPUT AT THIS TIME. PT HAS IV ACCESS ON RIGHT HAND 22G. IV LINE IS PATENT, INTACT, AND ASYMPTOMATIC. PT HAS NS RUNNING AT 75ML/HR. ALL SAFETY PRECAUTIONS ARE IN PLACE. HOB AT 30 DEGREES. WILL CONTINUE TO MONITOR PT.
--- NOTE | 2019-04-18 19:54 | NUR ---
PT ASKING TO SPEAK WITH A DOCTOR AT THIS TIME. CALLED DR. GILBERT AND INFORMED HIM REGARDING THIS. DR. GILBERT TO COME IN THE UNIT TO SPEAK WITH PT. INFORMED PT THAT THE DOCTOR WILL COME IN SHORTLY.
[2019-04-18] MEDS ORDERED: NACL 0.9% 500 ML IV ONE (20:05)
[2019-04-18] MEDS: GABAPENTIN 100 MG CAP PO SCH (20:59)
[2019-04-18] MEDS ORDERED: HYDROCORTISONE NA SUCC 100 MG/2 ML VIAL IV SCH (21:00)
[2019-04-18] MEDS ORDERED: metroNIDAZOLE 500 MG/NS PREMIX 100 ML IV SCH (21:00)
--- NOTE | 2019-04-18 21:30 | NUR ---
DR. VOSS AT BEDSIDE TO SEE PT. UPDATED HIM REGARDING PT'S CONDITION AND ANY CHANGES. RECEIVED NEW ORDERS FROM DR. VOSS. WILL CONTINUE TO MONITOR PT.
[2019-04-18] MEDS ORDERED: VANCOMYCIN PER PHARMACY MC PRN (21:45)
--- NOTE | 2019-04-18 21:45 | NUR ---
CALLED PT'S SON, JORGE, PER HER REQUEST. UPDATED HIM REGARDING PT'S CONDITION. PT ABLE TO TALK TO HER SON.
[2019-04-18] MEDS ORDERED: VANCOMYCIN 1GM/DEXT 5% PREMIX 200 ML IV SCH (22:00)
[2019-04-18 22:01] LABS: APPEARANCE,UNSPUN,BODY FLUID CLEAR (CLEAR); COLOR,BODY FLUID LT YELLOW (LT YELLOW); SPECIMENTYPE,BODY FLUID ASCITIES
[2019-04-18 22:02] LABS: POLYNUCLEAR, BODY FLUID 11 %; RBC, BODY FLUID 3 /cu. mm.; WBC, BODY FLUID 21 /cu. mm.
--- NOTE | 2019-04-18 22:15 | NUR ---
BLOOD TRANSFUSION STARTED AT THIS TIME.
[2019-04-18 22:27] LABS: GLUCOSE,BODY FLUID 164 mg/dL
[2019-04-18] MEDS ORDERED: VANCOMYCIN 1,000 MG VIAL ONE (23:04)
[2019-04-19] VITALS (12 sets, daily range): BP systolic 66–89; BP diastolic 35–45
--- NOTE | 2019-04-19 00:29 | NUR ---
CALLED DR. GILBERT TO INFORM HIM REGARDING THE BLOOD PRESSURE OF PT AT THIS TIME. BP CONTINUOUS TO GO DOWN DESPITE EARLIER FLUID BOLUS AND CURRENT BLOOD TRANSFUSION. ALSO NOTIFIED HIM REGARDING THE OUTPUT FROM THE DRAINAGE BAG FROM SITE OF PARACENTESIS. PER DR. GILBERT, HE WILL PUT IN NEW ORDER.
--- NOTE | 2019-04-19 01:00 | NUR ---
BLOOD TRANSFUSION COMPLETED. NO ADVERSE REACTION NOTED.
[2019-04-19] MEDS ORDERED: NACL 0.9% 500 ML IV ONE (01:30)
[2019-04-19] MEDS: HYDROCORTISONE NA SUCC 100 MG/2 ML VIAL IV SCH ×3 (02:12→18:28)
--- NOTE | 2019-04-19 02:20 | NUR ---
PT TURNED AND REPOSITIONED. PT'S BP REMAINS LOW AT THIS TIME. BOLUS ORDERED CURRENTLY RUNNING AT THIS TIME. RESPIRATIONS EVEN AND UNLABORED. OXYGEN SATURATION WNL. PARACENTESIS SITE STILL DRAINING FLUIDS. WILL CONTINUE TO MONITOR.
--- NOTE | 2019-04-19 04:43 | NUR ---
PT AFEBRILE. NO CHANGE IN PT'S CONDITION. BP REMAINS LOW DESPITE BLOOD TRANSFUSION AND IVF BOLUS. PT AROUSABLE. OPENS EYES SPONTANEOUSLY. ALL SAFETY PRECAUTIONS REMAINS IN PLACE. WILL CONTINUE TO MONITOR PT.
[2019-04-19] MEDS: PIPERACILLIN/TAZOBACTAM 2.25 GM in DEXTROSE 5% 50 ML IV SCH ×3 (05:16→21:18)
--- NOTE | 2019-04-19 05:20 | NUR ---
PT HAD NO URINE OUTPUT. REFUSED TO BE STRAIGHT CATH FOR URINE SPECIMEN COLLECTION
--- NOTE | 2019-04-19 06:30 | NUR ---
PT CURRENTLY DROWSY. OPENS EYES BUT FALLS BACK TO SLEEP.
[2019-04-19 06:49] LABS: MAGNESIUM 1.2 mg/dL (1.8-2.4); PHOSPHORUS 2.3 mg/dL (2.5-4.9)
[2019-04-19] MEDS: MIDODRINE 5 MG TAB PO SCH ×3 (06:54→18:28)
[2019-04-19] MEDS: PANTOPRAZOLE 40 MG TABEC PO SCH (06:54)
--- NOTE | 2019-04-19 06:55 | NUR ---
PT ABLE TO TAKE HER MEDICATIONS. BP REMAINS LOW AT THIS TIME. PT ABLE TO MAKE NEEDS KNOWN.
--- NOTE | 2019-04-19 07:10 | NUR ---
RECEIVED BEDSIDE REPORT FROM RN MOBILE RN KADEN. PT AAOX4. IRANIAN SPEAKING. ABLE TO MAKE NEEDS KNOWN. AFEBRILE 97.5F. DENIES PAIN AT THIS TIME. RESPIRATIONS EVEN AND UNLABORED. NO S/S OF DISTRESS IN ROOM AIR. LUNG SOUNDS CLEAR BILATERALLY. BOWEL SOUNDS ACTIVE. ABDOMEN ROUND AND SOFT. SR ON MONITOR. S1S2 PRESENT. PULSES PALPABLE IN ALL EXTREMITIES. PT HAS A COLLECTION BAG OVER THE PARACENTESIS SITE ON THE RIGHT LOWER ABD FILLED WITH CLOUDY YELLOW LIQUID. LEFT UPPER ARM DIALYSIS FISTULA. BRUIT AND THRILL PRESENT. DIALYSIS TUE, THUR, SAT. LAST DIALYSIS WAS ON 04/15. NO URINE OUTPUT AT THIS TIME. IV ACCESS ON RIGHT HAND 22G, SL. RIGHT WRIST 20G, RUNNING NS AT 75ML/HR, PATENT, INTACT, AND ASYMPTOMATIC. ALL SAFETY PRECAUTIONS ARE IN PLACE. HOB AT 30 DEGREES. WILL CONTINUE TO MONITOR.
[2019-04-19 07:15] LABS: BASOPHILS # (AUTO) 0.1 K/uL (0.00-0.22); BASOPHILS % (AUTO) 0.2 % (0.0-2.0); EOSINOPHILS # (AUTO) 0.3 K/uL (0-0.4); EOSINOPHILS % (AUTO) 0.8 % (0.0-4.0); HEMATOCRIT 28.7 % (36-48); HEMOGLOBIN 9.5 g/dL (12.0-16.0); LYMPHOCYTES % (AUTO) 2.6 % (20.5-51.1); MEAN CORPUSCULAR HEMOGLOBIN 31 pg (27-31); MEAN CORPUSCULAR HGB CONC 33 g/dL (33-37); MEAN CORPUSCULAR VOLUME 92.4 fL (80-94); MONOCYTES # (AUTO) 3.4 K/uL (0.8-1.0); NEUTROPHILS # (AUTO) 33.2 K/uL (1.8-7.7); NEUTROPHILS % (AUTO) 87.4 % (42.2-75.2); PLATELET COUNT (AUTO) 61 K/uL (140-450); RED BLOOD CELL COUNT(AUTO) 3.11 MIL/uL (4.20-5.40); RED CELL DISTRIBUTION WIDTH 17.4 % (11.6-13.7)
[2019-04-19 07:27] LABS: ANION GAP 17.5 (8-16); CARBON DIOXIDE 20.1 mmol/L (21-32); CHLORIDE 101 mmol/L (98-107); GLUCOSE 165 mg/dL (74-106); POTASSIUM 3.6 mmol/L (3.5-5.1); SODIUM SERUM 135 mmol/L (136-145); UREA NITROGEN, BLOOD 34 mg/dL (7-18)
[2019-04-19 07:29] LABS: CREATININE 6.9 mg/dL (0.6-1.3)
--- NOTE | 2019-04-19 07:50 | NUR ---
PASSPORT APPLICATION EXAMINER PHONE USED. MADE PT AWARE URINE SAMPLE IS NEEDED. PT SAID SHE IS ON DIALYSIS AND NO URINE. PT REFUSED TO BE STRAIGHT CATH BECAUSE IT HURTS. TOLD PT WHENEVER SHE IS GOING TO URINATE JUST LET US KNOW AHEAD OF TIME. PT SAID GOOD.
[2019-04-19] MEDS: CARVEDILOL 6.25 MG TAB PO SCH (08:09)
[2019-04-19] MEDS ORDERED: MAG SULF 2000 MG/WATER PREMIX 50 ML IV SCH (08:16)
[2019-04-19] MEDS: VIT-B COMP/VIT-C/FOLIC ACID 1 TAB PO SCH (08:17)
[2019-04-19] MEDS: LACTOBACILLUS RHAMNOSUS GG 1 EACH CAP PO SCH (08:17)
[2019-04-19] MEDS: FOLIC ACID 1 MG TAB PO SCH (08:17)
--- NOTE | 2019-04-19 09:25 | NUR ---
PAGED DR MORELAND, SPOKE WITH HIM OVER THE PHONE. ASK IF PT NEEDS HD TODAY. MADE DR MORELAND AWARE BP 89/[address] MORELAND SAID HE WILL CALL THE DIALYSIS NURSE FOR HD TODAY.
--- NOTE | 2019-04-19 10:35 | NUR ---
DR NORIEGA AND DR LOPEZ CAME AND TALKED TO PT, PT'S SON AND OTHER FAMILY MEMBERS.
--- NOTE | 2019-04-19 12:34 | NUR ---
SPOKE WITH DR MORELAND OVER THE PHONE, MADE HIM AWARE THE MOST RECENT BP WAS 78/45. PT'S FAMILY REFUSED PRESSORS. PT HAS NO RESPIRATORY ISSUES. ASKED DR MORELAND IF HE STILL WANT TO CONTINUE WITH HD TODAY. DR MORELAND SAID NO. TOLD DR MORELAND CA WAS 6.9, PHOS 2.3, DR MORELAND ORDERED 2G CALCIUM GLUCONATE IVPB OVER 2 HRS.
[2019-04-19] MEDS ORDERED: CALCIUM GLUCONATE 10% 2,000 MG in NACL 0.9% 100 ML IV ONE ×2 (12:40→13:10)
--- NOTE | 2019-04-19 13:15 | NUR ---
CALLED [facility]. (per pt.'s son this is their farrar yarsanism) . MESSAGE LEFT THAT PT. IS REQUESTING FOR SACRAMENT OF THE SICK.
--- NOTE | 2019-04-19 13:18 | NUR ---
CALLED PHARMACY, PHARMACIST SAYING THEY DID NOT RECEIVE ANY ORDER, [facility] HAS SOME ISSUES.
[2019-04-19] MEDS ORDERED: CALCIUM GLUCONATE 10% 2,000 MG in NACL 0.9% 100 ML IV SCH (14:00)
[2019-04-19] MEDS ORDERED: CALCIUM GLUCONATE 10% 2,000 MG in NACL 0.9% 50 ML IV SCH (14:00)
--- NOTE | 2019-04-19 14:10 | NUR ---
CALCIUM GLUCONATE 2G IVPB ADMINISTERED, DOCUMENTED ON PAPER OCT.
--- NOTE | 2019-04-19 14:14 | NUR ---
PER MARVIN OF [facility] AT [phone], SHE WAS ABLE TO SPEAK TO THE FAMILY AND ARE AGREEABLE OF HOSPICE. SHE ALSO STATED THAT THE FAMILY ALREADY SIGNED THE CONSENT. SHE ALSO STATED THAT SHE WILL SET UP EVERYTHING FOR TRANSFER.
--- NOTE | 2019-04-19 15:50 | NUR ---
PT VOIDED IN BEDPAN. URINE SPECIMEN SENT TO LAB.
[2019-04-19] MEDS: NACL 0.9% 1,000 ML IV SCH (17:00)
--- NOTE | 2019-04-19 17:10 | NUR ---
DR RÍOS CAME AND SEEN PT, NO NEW ORDERS.
--- NOTE | 2019-04-19 18:40 | NUR ---
DR ADDISON CAME AND SEEN PT.
--- NOTE | 2019-04-19 19:25 | NUR ---
RECEIVED BEDSIDE REPORT FROM DAY SHIFT RN. PATIENT AAOX4 AND SPEAKING COMFORTABLY WITH FAMILY AT BEDSIDE. PATIENT IS A ROMANSH SPEAKER. ABLE TO MAKE NEEDS KNOWN. AFEBRILE 97.2F. DENIES PAIN AT THIS TIME. PATIENT IS ON ROOM AIR AND RESPIRATIONS EUPNEIC WITH LUNG SOUNDS CLEAR THROUGHOUT. BP IS 79/51 (MAP:59) NO EDEMA PRESENT, HOWEVER ABDOMEN ROUND AND DISTENDED. NSR ON MONITOR WITH S1/S2 PRESENT. PULSES PALPABLE IN ALL EXTREMITIES. SKIN IS WARM, DRY, AND INTACT EXCEPT FOR RIGHT WRIST SKIN TEAR WHICH HAS A DRY/INTACT DRESSING COVERING IT. PT HAS A COLLECTION BAG OVER THE PARACENTESIS SITE ON THE RIGHT LOWER ABD FILLED WITH CLEAR YELLOW LIQUID. LEFT UPPER ARM DIALYSIS FISTULA. BRUIT AND THRILL PRESENT. RIGHT WRIST 20G, RUNNING NS AT 75ML/H, HOWEVER SITE IS LEAKING SMALL AMOUNT OF BLOOD WITH NO OTHER SYMPTOMS OR PAIN AT THIS TIME. ALL CONNECTIONS AT SITE WERE TIGHTENED BUT LEAKING CONTINUED. SITE IS NOW DISCONTINUED AND REMOVED THE INTACT IV CATHETER. IV NS AT 75 ML/H IS NOW REINITIATED ON THE RIGHT HAND 22 GAUAGE SITE RUNNING AT THE SAME 75ML/H.
--- NOTE | 2019-04-19 20:10 | NUR ---
phone call from dr booker; made aware that pt has zosyn dose at 2100 to be given post hemodialysis; pt did not have dialysis today; dr booker said to hold 2100 dose. primary nurse yelitza ford and conrado rn aware
--- NOTE | 2019-04-19 20:56 | NUR ---
dr patel in the unit; ok to give zosyn dose
[2019-04-19] MEDS: GABAPENTIN 100 MG CAP PO SCH (21:18)
--- NOTE | 2019-04-19 22:33 | NUR ---
CHECKED ON PATIENT, AND CHANGED HER BED COVER REQUESTED. OFFERED TO REPOSITION PATIENT, BUT SHE REFUSED. PATIENT DOES NOT NEED ANYTHING ELSE AT THIS TIME. WILL CONTINUE TO MONITOR.
[2019-04-20] VITALS (9 sets, daily range): BP systolic 68–81; BP diastolic 34–45
[2019-04-20] MEDS: ONDANSETRON 4 MG/2 ML VIAL IM/IVP PRN ×2 (00:20→06:38)
--- NOTE | 2019-04-20 00:25 | NUR ---
PATIENT FEELING NAUSEATED. GAVE 4MG ZOFRAN IV PUSH, AND PATIENT TOLERATED MEDICATION WELL PATIENT IS NOW RESTING AND DOESN'T NEED ANYTHING ELSE AT THIS TIME. WILL CONTINUE TO MONITOR.
--- NOTE | 2019-04-20 02:23 | NUR ---
USED POSTAL DELIVERY OFFICER JOSÉ ANTONIO #[id number] TO ASSESS WHAT PATIENT WAS ASKING FOR. PATIENT REQUESTED A MEDICATION TO SLEEP. CALLED DR ADDISON ORDER FOR MELATONIN. WILL GIVE MELATONIN 3 MG PO.
[2019-04-20] MEDS ORDERED: MELATONIN 3 MG TAB PO PRN (02:25)
[2019-04-20] MEDS ORDERED: MELATONIN 3 MG TAB ONE (02:53)
[2019-04-20] MEDS: NACL 0.9% 1,000 ML IV SCH (02:54)
--- NOTE | 2019-04-20 04:15 | NUR ---
PATIENT RESTING IN BED WITH NO SIGNS OF ACUTE DISTRESS. PATIENT VERBALIZED THAT SHE DOES NOT WANT TO BE REPOSITIONED AT THIS TIME. WILL CONTINUE TO MONITOR
--- NOTE | 2019-04-20 05:40 | NUR ---
VASCULAR SONOGRAPHER AT BEDSIDE DRAWING BLOOD FOR ORDERED LABS. PATIENT TOLERATING BLOOD DRAW WELL. PATIENT DOES NOT NEED ANYTHING AT THIS TIME. WILL CONTINUE TO MONITOR.
[2019-04-20] MEDS ORDERED: SIME80CT27 PO (05:51)
[2019-04-20] MEDS ORDERED: PANT40EC28 PO (05:51)
[2019-04-20] MEDS ORDERED: ONDA2SOL45 IM/IVP (05:51)
[2019-04-20] MEDS ORDERED: MELA3TAB PO (05:51)
[2019-04-20] MEDS: PIPERACILLIN/TAZOBACTAM 2.25 GM in DEXTROSE 5% 50 ML IV SCH ×2 (05:59→13:02)
[2019-04-20] MEDS: PANTOPRAZOLE 40 MG TABEC PO SCH (06:02)
[2019-04-20] MEDS: MIDODRINE 5 MG TAB PO SCH ×2 (06:02→13:01)
[2019-04-20 06:06] LABS: ANION GAP 19.9 (8-16); CARBON DIOXIDE 17.6 mmol/L (21-32); CHLORIDE 101 mmol/L (98-107); GLUCOSE 122 mg/dL (74-106); POTASSIUM 3.5 mmol/L (3.5-5.1); SODIUM SERUM 135 mmol/L (136-145); UREA NITROGEN, BLOOD 44 mg/dL (7-18)
[2019-04-20 06:10] LABS: MAGNESIUM 2.4 mg/dL (1.8-2.4); PHOSPHORUS 5.2 mg/dL (2.5-4.9)
[2019-04-20 06:14] LABS: CREATININE 7.2 mg/dL (0.6-1.3)
[2019-04-20 06:58] LABS: HEMATOCRIT 28.2 % (36-48); HEMOGLOBIN 9.2 g/dL (12.0-16.0); MEAN CORPUSCULAR HEMOGLOBIN 31 pg (27-31); MEAN CORPUSCULAR HGB CONC 33 g/dL (33-37); MEAN CORPUSCULAR VOLUME 93.9 fL (80-94); PLATELET COUNT (AUTO) 80 K/uL (140-450); RED BLOOD CELL COUNT(AUTO) 3.01 MIL/uL (4.20-5.40); RED CELL DISTRIBUTION WIDTH 18.9 % (11.6-13.7)
[2019-04-20 07:05] LABS: WHITE BLOOD COUNT (AUTO) 41.2 K/uL (4.8-10.8)
[2019-04-20 07:06] LABS: LYMPHOCYTES % (MANUAL) 2 % (20-46); MONOCYTES % (MANUAL) 5 % (5-12)
--- NOTE | 2019-04-20 07:10 | NUR ---
RECEIVED BEDSIDE REPORT FROM UROLOGY PHYSICIAN ASSISTANT RN JESSIE. PT IS RESTING IN BED, EASILY AROUSED, OX4. OCCITAN SPEAKING. ABLE TO MAKE NEEDS KNOWN. AFEBRILE 97.7F. DENIES PAIN AT THIS TIME. RESPIRATIONS EVEN AND UNLABORED. NO S/S OF DISTRESS IN ROOM AIR. LUNG SOUNDS CLEAR BILATERALLY. BOWEL SOUNDS ACTIVE. ABDOMEN ROUND AND SOFT. SR ON MONITOR. S1S2 PRESENT. PULSES PALPABLE IN ALL EXTREMITIES. PT HAS A COLLECTION BAG OVER THE PARACENTESIS SITE ON THE RIGHT LOWER ABD FILLED WITH SLIGHTLY CLOUDY YELLOW FLUID. LEFT UPPER ARM DIALYSIS FISTULA. BRUIT AND THRILL PRESENT. DIALYSIS TUE, THUR, SAT. LAST DIALYSIS WAS ON 04/15. PT IS GOING TO BE DC BACK TO [facility] WITH [facility]. IV ACCESS ON RIGHT HAND 22G, RUNNING NS AT 75ML/HR, PATENT, INTACT, AND ASYMPTOMATIC. ALL SAFETY PRECAUTIONS ARE IN PLACE. HOB AT 30 DEGREES. WILL CONTINUE TO MONITOR.
--- NOTE | 2019-04-20 07:50 | NUR ---
BMX1 NOTED, BROWN SOFT STOOL. MODERATED AMOUNT. CLEANED PT, CHANGED CHUX AND LINENS.
[2019-04-20] MEDS: LACTOBACILLUS RHAMNOSUS GG 1 EACH CAP PO SCH (08:15)
[2019-04-20] MEDS: FOLIC ACID 1 MG TAB PO SCH (08:15)
[2019-04-20] MEDS: CARVEDILOL 6.25 MG TAB PO SCH (08:16)
[2019-04-20] MEDS: VIT-B COMP/VIT-C/FOLIC ACID 1 TAB PO SCH (08:16)
[2019-04-20] MEDS ORDERED: Vancomycin Per Pharmacy MC (08:16)
[2019-04-20] MEDS ORDERED: ZOS3.375I IV (08:19)
--- NOTE | 2019-04-20 08:50 | NUR ---
PT FINISHED BREAKFAST, RESTING IN BED WITH EYES CLOSED. NO S/S OF RESPIRATORY DISTRESS. SB ON MONITOR.
[2019-04-20] MEDS ORDERED: VANCOMYCIN 750 MG in DEXTROSE 5% 250 ML IV SCH (10:00)
--- NOTE | 2019-04-20 11:00 | NUR ---
CALLED [facility], ELECTRONIC [employer] TECHNICIAN TIME IS 4:30PM. MADE DR LOPEZ AWARE. ALSO, ASKED DR LOPEZ HOW MANY DAYS PT WILL NEED ZOSYN AND VANCO. DR LOPEZ SAID HE WILL LEAVE THE DISCRETION TO THE HOSPICE AND THE FAMILY TO DECIDE.
--- NOTE | 2019-04-20 14:15 | NUR ---
PT'S GRANDSONS ARE HERE TO VISIT PT. MADE THEM AWARE OF DEPARTURE TIME. PT IS AWAKE, ALERT, TALKING TO HER GRANDSONS.
--- NOTE | 2019-04-20 14:50 | NUR ---
PT'S SON ANA LAURA IS HERE, PT AGREED TO LET HER SON SIGN FOR HER. DISCHARGE INSTRUCTIONS AND MEDICATION REVIEWED WITH PT AND HER SON. VERBALIZED UNDERSTANDING. NO FURTHER QUESTIONS AT THIS TIME.
--- NOTE | 2019-04-20 15:25 | NUR ---
MARVIN FROM HOSPICE CALLED REGARDING REPORTING DEVELOPER TIME. ASKED IF THEY WILL GIVE PT IV ABX, MARVIN STATED NO IV ABX WILL BE GIVEN, THEY WILL ONLY DO COMFORT MEASURES. IV DC'D, TIP INTACT, PRESSURE APPLIED.
--- NOTE | 2019-04-20 16:10 | NUR ---
R WRIST SKIN TEAR DISCHARGE PIC TAKEN FOR DOCUMENTATION. RINSED SITE WITH NS, PATTED DRY, CHANGED NEW VERSETEL DRESSING. PT TOLERATED WELL.
--- NOTE | 2019-04-20 17:05 | NUR ---
PT PICKED UP BY [facility] TRANSPORT STAFFS. WHEELCHAIR TAKEN BT TRANSPORT STAFFS. OTHER BELONGINGS TAKEN BY FAMILY.
[2019-04-22] MEDS ORDERED: EPOETIN ALFA 10,000 UNITS/ML VIAL SUBQ SCH (09:00)
== END 2019-04-20 17:05 | disposition hospice, inpatient (51) | DRG 871 ==
LOC: MED 10:51 → MTU 14:10 → MIC 04-18 17:57
PROVIDERS: ADMIT General Practice; ATTEND General Practice
PROC: 0W9G3ZZ Drainage of Peritoneal Cavity, Percutaneous Approach (ICD-10-PCS; principal; 2019-04-14)
PROC: 30233N1 Transfusion of Nonautologous Red Blood Cells into Peripheral Vein, Percutaneous Approach (ICD-10-PCS; 2019-04-15)
PROC: 5A1D70Z Performance of Urinary Filtration, Intermittent, Less than 6 Hours Per Day (ICD-10-PCS; 2019-04-15)
DX: A41.9 Sepsis, unspecified organism (principal); N17.0 Acute kidney failure with tubular necrosis; E43 Unspecified severe protein-calorie malnutrition; N18.6 End stage renal disease; R65.21 Severe sepsis with septic shock; I50.43 Acute on chronic combined systolic (congestive) and diastolic (congestive) heart failure; K65.2 Spontaneous bacterial peritonitis; N39.0 Urinary tract infection, site not specified; E44.0 Moderate protein-calorie malnutrition; I13.2 Hypertensive heart and chronic kidney disease with heart failure and with stage 5 chronic kidney disease, or end stage renal disease; K76.6 Portal hypertension; D63.1 Anemia in chronic kidney disease; D69.6 Thrombocytopenia, unspecified; E11.22 Type 2 diabetes mellitus with diabetic chronic kidney disease; E83.39 Other disorders of phosphorus metabolism; E83.42 Hypomagnesemia; E87.6 Hypokalemia; I25.10 Atherosclerotic heart disease of native coronary artery without angina pectoris; K21.9 Gastro-esophageal reflux disease without esophagitis; K74.60 Unspecified cirrhosis of liver; E87.8 Other disorders of electrolyte and fluid balance, not elsewhere classified; K59.00 Constipation, unspecified; E11.42 Type 2 diabetes mellitus with diabetic polyneuropathy; K59.09 Other constipation; E83.51 Hypocalcemia; Z68.25 Body mass index [BMI] 25.0-25.9, adult; Z90.710 Acquired absence of both cervix and uterus; Z99.2 Dependence on renal dialysis
CPT/HCPCS: 36415; 71045; 74018; 76705; 80048; 80053; 80076; 80202; 81001; 82150; 82945; 83036; 83605; 83690; 83735; 83880; 84100; 84157; 84436; 84443; 85025; 85610; 85730; 86886; 86900; 86901; 86920; 87040; 87070; 87075; 87081; 87086; 87102; 87205; 89051; 92610; 96365; 96367; 97110; 97112; 97161-GP; 97530; 99291; J0610; J0696; J1200; J1720; J2001; J2405; J2543; J3370; J3475; J3490; J7030; J7060; P9016; P9041; P9046; Q0092